=== PATIENT | male | born 1940 | race Caucasian/White ===

== ENCOUNTER → 2017-02-21 | Outpatient (CLI) | payer MEDICARE, OTHER, SELFPAY | PROVIDERS: Visit Provider Internal Medicine | DX: I25.10 Atherosclerotic heart disease of native coronary artery without angina pectoris (principal); R06.00 Dyspnea, unspecified; R60.9 Edema, unspecified; I11.9 Hypertensive heart disease without heart failure; I10 Essential (primary) hypertension; N18.4 Chronic kidney disease, stage 4 (severe) | CPT/HCPCS: 36415; 80048; 93306 ==

== ENCOUNTER → 2017-12-18 12:39 | Outpatient (CLI) | payer MEDICARE, OTHER, SELFPAY ==
[2017-12-18 14:24] LABS: Anion Gap 13.3 mEq/L (5-15); Blood Urea Nitrogen 35 mg/dL (7-18); Calcium 9.1 mg/dL (8.5-10.1); Carbon Dioxide 32 mmol/L (21.0-32.0); Chloride 104 mmol/L (98-107); Creatinine,Serum 2.57 mg/dL (0.70-1.30); Estimated Glomerular Filt Rate 24 ml/min (>60); GFR (African American) 29 ML/MIN (>60); Glucose 106 mg/dL (74-106); Potassium 4.3 mmoL/L (3.5-5.1); Sodium 145 mmol/L (136-145)
== END ==
PROVIDERS: PCP Family Medicine; Visit Provider Internal Medicine
DX: E11.9 Type 2 diabetes mellitus without complications (principal); I11.9 Hypertensive heart disease without heart failure; I25.10 Atherosclerotic heart disease of native coronary artery without angina pectoris; I70.1 Atherosclerosis of renal artery; N18.4 Chronic kidney disease, stage 4 (severe); R60.0 Localized edema
CPT/HCPCS: 36415; 80048

== ENCOUNTER 2018-01-28 08:24 | Inpatient (IN) ==
--- NOTE | 2018-01-28 08:46 | Emergency Department Note ---
ED Disposition Clinical Impression: COPD (chronic obstructive pulmonary disease) Qualifiers: COPD type: unspecified COPD Qualified Code(s): J44.9 - Chronic obstructive pulmonary disease, unspecified CHF (congestive heart failure) Qualifiers: Heart failure type: unspecified Heart failure chronicity: acute on chronic Qualified Code(s): I50.9 - Heart failure, unspecified Disposition: Admitted as Observation Condition on Discharge: Good Referrals: Vasile Tafoya MD [Primary Care Provider] - - Critical Care Critical Care Time: No Attestation: On , the high probability of a clinically significant, sudden or life threatening deterioration of the following system(s) required my full and direct attention, intervention and personal management. The time I documented below is in addition to time spent performing reported procedures but includes the f ollowing listed in this critical care notation. Medical Decision Making - Medical Records Medical records reviewed: Yes: I reviewed the patient's medical records. - [place] Inquiry Pt receiving controlled substance: No Vital Signs: 01/28/18 08:35 01/28/18 08:38 01/28/18 09:21 Temperature 97.8 F 97.8 F Temperature Source Oral Oral Pulse Rate 56 L Pulse Rate [Right Brachial] 81 81 Respiratory Rate 15 15 Blood Pressure [Right Arm] 157/79 H 157/79 H Blood Pressure Mean [Right Arm] 105 105 Blood Pressure Source [Right Arm] Automatic Cuff Automatic Cuff Blood Pressure Position [Right Arm] Sitting Sitting 02 Sat by Pulse Oximetry 86 L 86 L Oxygen Delivery Method Room Air Room Air Oxygen Flow Rate (LPM) 01/28/18 09:44 01/28/18 09:46 Temperature Temperature Source Pulse Rate Pulse Rate [Right Brachial] 56 L Respiratory Rate 22 Blood Pressure [Right Arm] 165/61 H Blood Pressure Mean [Right Arm] 95 Blood Pressure Source [Right Arm] Automatic Cuff Blood Pressure Position [Right Arm] Sitting 02 Sat by Pulse Oximetry 88 L 92 L Oxygen Delivery Method Room Air Nasal Cannula Oxygen Flow Rate (LPM) 3 - Lab Data Lab results reviewed: Yes: I reviewed the patient's lab results. Lab Results 01/28/18 08:36: WBC 8.6, RBC 4.44 L, Hgb 13.1 L, Hct 40.6 L, MCV 91.6, MCH 29.6, MCHC 32.3, RDW 14.7, Plt Count 164, MPV 9.1, Neut % (Auto) 71.6, Lymph % (Auto) 17.3, [place] % (Auto) 6.2, Eos % (Auto) 4.3, Baso % (Auto) 0.6, Neut # (Auto) 6.2, Lymph # (Auto) 1.5, [place] # (Auto) 0.5, Eos # (Auto) 0.4, Baso # (Auto) 0.1 01/28/18 08:36: Sodium 146 H, Potassium 3.6, Chloride 108 H, Carbon Dioxide 33 H , Anion Gap 8.6, BUN 30 H, Creatinine 2.51 H, Estimated Creat Clear 38, Estimated GFR 25 L, Est GFR ( Amer) 30 L, Glucose 94, Calcium 9.0, Total Bilirubin 0.6, AST 13 L, ALT 20, Alkaline Phosphatase 91, Troponin I < 0.02, Total Protein 7.1, Albumin 3.2 L, Globulin 3.9 H, Albumin/Globulin Ratio 0.8 L, Lipase 103 01/28/18 08:36: B-Natriuretic Peptide 1180 H 01/28/18 08:36: D-Dimer 1580 H* 01/28/18 08:53: Lactate 0.2 L 01/28/18 08:55: Specimen Source Left radial, O2 % 2l, ABG pH 7.41, ABG pCO2 48.8 H, ABG pO2 72.1 L, ABG HCO3 30.1 H, ABG Total CO2 31.6 H, ABG O2 Saturation 94, ABG Base Excess 5.4 H, Sander Test Acceptable Result diagrams: 01/28/18 08:36 01/28/18 08:36 Orders (Tests/Meds): ED MEDICATIONS Discontinued Medications Generic Name Dose Route Start Last Admin Trade Name Freq PRN Reason Stop Dose Admin Albuterol/Ipratropium 3 ml 01/28/18 08:42 01/28/18 09:20 Duoneb 3ml Neb IH 01/28/18 08:43 3 ml ONCE ONE Administration Aspirin 324 mg 01/28/18 10:35 Aspirin 81mg Chewable Tablet PO 01/28/18 10:36 ONCE ONE Furosemide 80 mg 01/28/18 10:35 Lasix 80mg Tablet PO 01/28/18 10:36 ONCE ONE Methylprednisolone Sodium Succinate 125 mg 01/28/18 08:41 01/28/18 08:59 Solu-Medrol 125mg/2ml Vial IV 01/28/18 08:42 125 mg ONCE ONE Administration ORDERS Category Date Time Status Blood Culture Stat Micro 01/28/18 08:53 Ordered V/Q Scan [NM pul vent and perfuse] Stat Nuc Med 01/28/18 09:23 Ordered - ECG Data Tracing #1 I reviewed this ECG and interpreted as documented below: Normal Sinus Rhythm: Yes (lvh and lateral t abn is new since 08/2016) Medical Decision Narrative: consult d/w Todd of Dr Laura, admit d/w Dr Tafoya for chf, copd, abnormal ekg and pending vq scan, pt improved w/ duoneb and 2liter NC oxygen, lasix and asa General Adult HPI - General Chief complaint: Shortness of Breath/Dyspnea Stated complaint: SOA Time Seen by Provider: 01/28/18 08:43 Mode of Arrival: Ambulatory Source of Information: Patient Limitations: No Limitations Description of Symptoms (Recalled from ER Triage Doc. by RN): progressively worsening shortness of air over last week; bilat lower extremity swelling - History of Present Illness HPI narrative: mild to mod shortness of breath getting worse over last week, +ALAMO, no pain, no fever, not on home oxygen, hx cardiac stent and cabg and dm - Related Data Home Medications Medication Instructions Recorded Confirmed alprazolam 1 mg disintegrating 1 mg PO TID tab 03/12/17 01/28/18 tablet aspirin 81 mg tablet,delayed 81 mg PO ONCE 03/12/17 01/28/18 release carvedilol 12.5 mg tablet 12.5 mg PO BID 03/12/17 01/28/18 clopidogrel 75 mg tablet 75 mg PO ONCE 03/12/17 01/28/18 febuxostat 40 mg tablet 40 mg PO ONCE 03/12/17 01/28/18 ferrous sulfate 325 mg (65 mg 325 mg PO DAILY 03/12/17 01/28/18 iron) tablet glimepiride 4 mg tablet 4 mg PO QAM 03/12/17 01/28/18 isosorbide mononitrate ER 30 mg 30 mg PO QAM 03/12/17 01/28/18 tablet,extended release 24 hr pantoprazole 20 mg tablet,delayed 40 mg PO QHS tab 03/12/17 01/28/18 release zolpidem 10 mg tablet 10 mg PO .QDAY tab 03/12/17 01/28/18 Amlodipine Besylate [Amlodipine 10 mg PO BID 01/28/18 01/28/18 10mg Tab] Atorvastatin Calcium [Lipitor 40mg 40 mg PO .QDAY 01/28/18 01/28/18 Tablet] Furosemide [Furosemide 40MG tAB] 40 mg PO BID 01/28/18 01/28/18 Allergies Allergy/AdvReac Type Severity Reaction Status Date / Time cefuroxime [From CEFTIN] Allergy Unknown Verified 01/28/18 08:55 vancomycin [VANCOMYCIN] Allergy Unknown Verified 01/28/18 08:55 [facility] [place] History I have reviewed the patient's past medical history: Yes Medical History: Reports:: Coronary Artery Disease, Diabetes Mellitus Type 2, Hyperlipidemia, Peripheral Artery Disease Laterality Cases: Bilateral: Tonsillectomy Other Surgeries: Yes: Other - Social History Educational Level: Completed High School Smoking Status: Unknown if ever smoked Alcohol Intake: never - Psychiatric History Expresses thoughts of harming self/others: None Suicide Plan Description: No Plan Family Hx:: Non-contributory ROS Obtained: Yes Systems reviewed as appropriate & no additional complaints - Constitutional Constitutional: Denies fever(s) - Eyes Eyes: Denies eye discharge - ENT Ears, Nose, Mouth, and Throat: Denies pain with swallowing - Cardiovascular Cardiovascular: Denies chest pain - Respiratory Respiratory: Yes dyspnea, Yes dyspnea on exertion - Gastrointestinal Gastrointestingal: Denies: abdominal pain - Musculoskeletal Musculoskeletal: Denies muscle aches - Integumentary/Breasts Skin/Breast: Denies rash - Neurologic Neurologic: Denies dizziness Physical Exam - General General appearance: alert - Head Head exam: atraumatic - Eye Eye exam: Present: PERRL, EOMI - ENT ENT exam: Present: normal oropharynx - Neck Neck exam: Present: full ROM - Chest Chest inspection: Present: normal inspection - Respiratory Respiratory exam: Present: wheezes. Absent: stridor - Cardiovascular Cardiovascular exam: Present: regular rate - Abdominal Exam Abdominal exam: Present: soft. Absent: tenderness - Extremities Exam Extremities exam: Present: pedal edema - Back Exam Back exam: Absent: CVA tenderness (R), CVA tenderness (L) - Neurological Exam Neurological exam: Present: alert, oriented X3 - Psychiatric Psychiatric exam: Present: normal affect, normal mood - Skin Skin exam: Present: warm, dry
[2018-01-28 08:59] LABS: Basophils # 0.1 K/mm3 (0-0.2); Basophils % 0.6 % (0.1-2.0); Eosinophils # 0.4 K/mm3 (0.0-0.4); Eosinophils % 4.3 % (0.1-12.0); Hematocrit 40.6 % (42.0-52.0); Hemoglobin 13.1 g/dL (14.1-18.0); Lymphocytes # 1.5 K/mm3 (0.7-4.5); Lymphocytes % 17.3 % (10-50); Mean Corpuscular HGB Conc 32.3 g/dL (31.8-35.4); Mean Corpuscular Hemoglobin 29.6 pg (27.0-31.2); Mean Corpuscular Volume 91.6 fl (80-94); Mean Platelet Volume 9.1 fl (7.4-10.4); Monocytes # 0.5 K/mm3 (0.1-1.0); Monocytes % 6.2 % (1.7-9.3); Neutrophils # 6.2 K/mm3 (1.8-7.8); Neutrophils % 71.6 % (37.0-80.0); Platelet Count 164 K/mm3 (142-424); Red Blood Count 4.44 M/mm3 (4.60-6.20); Red Cell Distribution Width 14.7 % (11.5-17.5); White Blood Count 8.6 K/mm3 (4.8-10.8)
[2018-01-28 09:05] LABS: Alanine Aminotransferase 20 U/L (12-78); Albumin Level 3.2 gm/dL (3.4-5.0); Albumin/Globulin Ratio 0.8 (1.1-1.8); Alkaline Phosphatase 91 U/L (46-116); Anion Gap 8.6 mEq/L (5-15); Aspartate Amino Transferase 13 U/L (15-37); Bilirubin,Total 0.6 mg/dL (0.2-1.0); Blood Urea Nitrogen 30 mg/dL (7-18); Carbon Dioxide 33 mmol/L (21.0-32.0); Chloride 108 mmol/L (98-107); Globulin 3.9 gm/dl (1.3-3.2); Glucose 94 mg/dL (74-106); Lipase 103 u/L (73-393); Potassium 3.6 mmoL/L (3.5-5.1); Sodium 146 mmol/L (136-145); Total Protein,Serum 7.1 gm/dL (6.4-8.2)
[2018-01-28 09:08] LABS: ABG Base Excess 5.4 mmol/L (-2.4-2.3); ABG HCO3 30.1 mmhg (22.0-26.0); ABG Oxygen Saturation 94 % (90-100); ABG PCO2 48.8 mmhg (35.0-45.0); ABG PH 7.41 mmol/L (7.35-7.45); ABG PO2 72.1 mmhg (80-100); ABG TCO2 31.6 mmhg (23-27)
[2018-01-28 09:09] LABS: Allen's Test Acceptable; Oxygen 2L %
--- NOTE | 2018-01-28 11:30 | Consult Report ---
History of Present Illness Consult date: 01/28/18 Requesting physician: Vasile Tafoya Consult reason: shortness of breath Chief complaint: SOA Additional Medical History:: 1. Coronary artery disease A. History of coronary bypass grafting 1998 B. Drug-eluting stent to circumflex 03/05/2015 2. History of heart failure 3. Renal artery stenosis with history of left renal artery stent placement 03/05/2015 4. History of peripheral arterial disease with right common iliac stent placement 03/05/2015 5. Chronic kidney disease stage III with history of creatinine 2.2 GFR in the 30-40 range 6. Hypertension 7. Diabetes mellitus type 2 8. Hyperlipidemia History of present illness: 77-year-old white male with history as noted above presented to the emergency department for increasing shortness of breath. Patient lives with his son who has noted that the patient has had increasing difficulty with minimal ambulation over the last 2 weeks. Patient denies any increase in edema, PND or orthopnea. He does sleep with his CPAP on regularly. During ER workup, patient was noted to have elevated d-dimer with a VQ that is pending at this time. Unable to do a CT due to chronic kidney disease. EKG shows sinus rhythm with nonspecific ST-T abnormalities that are similar to previous tracings in 2016 and 2017. Patient denies any chest pain, pressure or tightness. Cardiology consulted for further evaluation. Initial troponin is normal. [facility] History Medical History: Reports:: Coronary Artery Disease, Diabetes Mellitus Type 2, Hyperlipidemia, Peripheral Artery Disease Laterality Cases: Bilateral: Tonsillectomy Other Surgeries: Yes: Other - *Social History Educational Level: Completed High School Smoking Status: Unknown if ever smoked Alcohol Intake: never - Psychiatric History Expresses thoughts of harming self/others: None Suicide Plan Description: No Plan *Family Hx:: Non-contributory Meds Home Medications Medication Instructions Recorded Confirmed Type alprazolam 1 mg disintegrating 1 mg PO TIDP PRN tab 03/12/17 01/28/18 History tablet aspirin 81 mg tablet,delayed 81 mg PO DAILY 03/12/17 01/28/18 History release carvedilol 12.5 mg tablet 12.5 mg PO BID 03/12/17 01/28/18 History clopidogrel 75 mg tablet 75 mg PO DAILY 03/12/17 01/28/18 History febuxostat 40 mg tablet 40 mg PO DAILY 03/12/17 01/28/18 History ferrous sulfate 325 mg (65 mg 325 mg PO TID 03/12/17 01/28/18 History iron) tablet glimepiride 4 mg tablet 4 mg PO DAILY 03/12/17 01/28/18 History isosorbide mononitrate ER 30 mg 30 mg PO DAILY 03/12/17 01/28/18 History tablet,extended release 24 hr zolpidem 10 mg tablet 10 mg PO HSP PRN tab 03/12/17 01/28/18 History Amlodipine Besylate [Amlodipine 10 mg PO BID 01/28/18 01/28/18 History 10mg Tab] Atorvastatin Calcium [Atorvastatin 40 mg PO DAILY 01/28/18 01/28/18 History 40mg Tab] Furosemide [Furosemide 40MG tAB] 40 mg PO BID 01/28/18 01/28/18 History Pantoprazole Sodium [Protonix 40mg 40 mg PO DAILY 01/28/18 01/28/18 History tablet] Allergies Allergy/AdvReac Type Severity Reaction Status Date / Time cefuroxime [From CEFTIN] Allergy Unknown Verified 01/28/18 08:55 vancomycin [VANCOMYCIN] Allergy Unknown Verified 01/28/18 08:55 Review of Systems - *Cardiovascular Reports shortness of breath, Reports shortness of breath with activity, Denies chest pain - *Respiratory Reports shortness of breath, Reports shortness of breath with activity - *Gastrointestinal Denies abdominal pain - *Genitourinary Denies blood in urine - *Musculoskeletal Denies joint pain, Denies back pain - *Neurologic Denies dizziness Exam Vital signs and Labs for Last 24 Hours: Temp Pulse Resp BP Pulse Ox 98.0 F 58 L 22 161/65 H 96 01/28/18 11:05 01/28/18 11:05 01/28/18 11:05 01/28/18 11:05 01/28/18 10:50 Laboratory Results - last 24 hr 01/28/18 08:36: WBC 8.6, RBC 4.44 L, Hgb 13.1 L, Hct 40.6 L, MCV 91.6, MCH 29.6, MCHC 32.3, RDW 14.7, Plt Count 164, MPV 9.1, Neut % (Auto) 71.6, Lymph % (Auto) 17.3, [place] % (Auto) 6.2, Eos % (Auto) 4.3, Baso % (Auto) 0.6, Neut # (Auto) 6.2, Lymph # (Auto) 1.5, [place] # (Auto) 0.5, Eos # (Auto) 0.4, Baso # (Auto) 0.1 01/28/18 08:36: Sodium 146 H, Potassium 3.6, Chloride 108 H, Carbon Dioxide 33 H , Anion Gap 8.6, BUN 30 H, Creatinine 2.51 H, Estimated Creat Clear 38, Estimated GFR 25 L, Est GFR ( Amer) 30 L, Glucose 94, Calcium 9.0, Total Bilirubin 0.6, AST 13 L, ALT 20, Alkaline Phosphatase 91, Troponin I < 0.02, Total Protein 7.1, Albumin 3.2 L, Globulin 3.9 H, Albumin/Globulin Ratio 0.8 L, Lipase 103 01/28/18 08:36: B-Natriuretic Peptide 1180 H 01/28/18 08:36: D-Dimer 1580 H* 01/28/18 08:53: Lactate 0.2 L 01/28/18 08:55: Specimen Source Left radial, O2 % 2l, ABG pH 7.41, ABG pCO2 48.8 H, ABG pO2 72.1 L, ABG HCO3 30.1 H, ABG Total CO2 31.6 H, ABG O2 Saturation 94, ABG Base Excess 5.4 H, Sander Test Acceptable I & O for Last 24 hours: Intake & Output 01/25/18 01/26/18 01/27/18 01/28/18 11:59 11:59 11:59 11:59 Intake Total Balance Weight 245 lb - *Routine Neck Exam Present: supple, JVD. Absent: carotid bruit Comments: Unable to adequately assess for JVD due to body habitus - *Routine Respiratory Exam Present: decreased breath sounds, crackles. Absent: accessory muscle use, rales, rhonchi, wheezes - *Routine Cardiovascular Exam Present: RRR. Absent: murmur, gallop, rubs - *Routine Abdominal Exam Present: soft. Absent: tenderness, distended, guarding - *Routine Extremities Exam Present: edema. Absent: calf tenderness - *Routine Neurological Exam Present: alert, oriented X3, moving all extremities Assessment and Plan (1) Dyspnea Current visit: No Status: Acute Category: Medical Code(s): R06.00 - Dyspnea, unspecified (2) D-dimer, elevated Current visit: Yes Status: Acute Category: Medical Code(s): R79.89 - Other specified abnormal findings of blood chemistry (3) CHF (congestive heart failure) Current visit: Yes Status: Acute Qualifiers: Heart failure type: unspecified Heart failure chronicity: acute on chronic Qualified Code(s): I50.9 - Heart failure, unspecified Category: Medical Code(s): I50.9 - Heart failure, unspecified (4) Edema Current visit: No Status: Acute Qualifiers: Edema type: localized Qualified Code(s): R60.0 - Localized edema Category: Medical Code(s): R60.9 - Edema, unspecified (5) Hypertensive disorder Current visit: No Status: Acute Category: Medical Code(s): I10 - Essential (primary) hypertension (6) Chronic kidney disease, stage 4 (severe) Current visit: No Status: Chronic Category: Medical Code(s): N18.4 - Chronic kidney disease, stage 4 (severe) (7) Coronary arteriosclerosis Current visit: No Status: Chronic Category: Medical Code(s): I25.10 - Atherosclerotic heart disease of [place] coronary artery without angina pectoris (8) Diabetes mellitus Current visit: No Status: Chronic Qualifiers: Diabetes mellitus type: type 2 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 Obtain echocardiogram to reevaluate left ventricular ejection fraction 2. IV Lasix 80 mg has been given, will assess response and follow renal functions closely 3. We will await results of VQ scan and consider Lovenox therapy if needed 4. Resume home meds. If edema is problematic then consider switching to hydralazine and isordil.
--- NOTE | 2018-01-28 11:40 | Pharmacy Consult Notes ---
[facility] Pharmacy VTE Monitoring - Patient Demographics Admission date: 01/28/18 Report Date: 01/28/18 Time: 11:39 Allergies/Adverse Reactions: Patient Allergies cefuroxime [From CEFTIN] Allergy (Unknown, Verified 01/28/18 08:55) vancomycin [VANCOMYCIN] Allergy (Unknown, Verified 01/28/18 08:55) Height: 1.91 m Weight: 116.205 kg Patient Problems: Current Active Problems COPD (chronic obstructive pulmonary disease) (Acute) CHF (congestive heart failure) (Acute) D-dimer, elevated (Acute) - VTE Risk Labs: VTE Related Lab Results Hgb 13.1 g/dL (14.1-18.0) L 01/28/18 08:36 Hct 40.6 % (42.0-52.0) L 01/28/18 08:36 Plt Count 164 K/mm3 (142-424) 01/28/18 08:36 BUN 30 mg/dL (7-18) H 01/28/18 08:36 Creatinine 2.51 mg/dL (0.70-1.30) H 01/28/18 08:36 Estimated Creat Clear 38 mL/min (50-200) 01/28/18 08:36 - Prophylaxis VTE Prophylaxis Ordered?: Yes Types of VTE Prophylaxis: TEDS Knee High Location of Applied Device: Bilateral Lower Extremeties - VTE Diagnosis Confirmed Treatment or plan recommended: Continue Current Treatment
--- NOTE | 2018-01-28 16:15 | History & Physical Report ---
*Admission Date: 01/28/18 *Chief complaint: shortness of breath *History of present illness: 77 year old gentlemen admitted through the ER today for increasing SOB. 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 He typically has some shortness of breath with activity but they noted it to be worse when he was unable to perform usual activities of showering and climbing stairs. Brought in for further evaluation this morning Patient is somewhat a poor historian and son answers some of questions. PMH significant for tobacco use, smoked for about 30 years, approx 1-2 ppd, quit about 30 years ago. [facility] History Medical History: Reports:: Arrhythmia, Atherosclerotic Heart Disease, Congestive Heart Failure, Coronary Artery Disease, Diabetes Mellitus Type 2, Hyperlipidemia, Peripheral Artery Disease, Peripheral Vascular Disease, Renal Disease Denies:: Cancer, MRSA Laterality Cases: Bilateral: Tonsillectomy Other Surgeries: Yes: Cardiac Catheterization, Cardiac Surgery, Coronary Stent, Other Amputation: No Fractures: No - *Social History Educational Level: Completed High School Smoking Status: Unknown if ever smoked #Yrs smoked (if former smoker): 20 Smoking End Date: 02/26/1989 Alcohol Intake: never Occupational Status: retired Housing: house Household Members: children - Psychiatric History Expresses thoughts of harming self/others: None Suicide Plan Description: No Plan *Family Hx:: Non-contributory Review of Systems - Constitutional Reports chills, Reports fatigue, Denies fever(s), Denies weight gain - ENT Reports nasal congestion - *Cardiovascular Reports leg swelling, Denies chest pain, Denies chest pain at rest, Denies chest pain with activity, Denies rapid, pounding, or irregular heartbeat, Denies taco rtness of breath causing sudden awakening, Denies radiating jaw, neck or arm pain - *Respiratory Reports shortness of breath, Reports shortness of breath with activity, Denies chest congestion, Denies cough, Denies wheezing - *Gastrointestinal Denies abdominal pain, Denies nausea, Denies vomiting - *Genitourinary Reports frequent nighttime urination, Reports urinary frequency, Denies difficulty urinating - *Neurologic Denies dizziness, Denies headache(s) Meds Home Medications Medication Instructions Recorded Confirmed Type alprazolam 1 mg disintegrating 1 mg PO TIDP PRN tab 03/12/17 01/28/18 History tablet aspirin 81 mg tablet,delayed 81 mg PO DAILY 03/12/17 01/28/18 History release carvedilol 12.5 mg tablet 12.5 mg PO BID 03/12/17 01/28/18 History clopidogrel 75 mg tablet 75 mg PO DAILY 03/12/17 01/28/18 History febuxostat 40 mg tablet 40 mg PO DAILY 03/12/17 01/28/18 History ferrous sulfate 325 mg (65 mg 325 mg PO TID 03/12/17 01/28/18 History iron) tablet glimepiride 4 mg tablet 4 mg PO DAILY 03/12/17 01/28/18 History isosorbide mononitrate ER 30 mg 30 mg PO DAILY 03/12/17 01/28/18 History tablet,extended release 24 hr zolpidem 10 mg tablet 10 mg PO HSP PRN tab 03/12/17 01/28/18 History Amlodipine Besylate [Amlodipine 10 mg PO BID 01/28/18 01/28/18 History 10mg Tab] Atorvastatin Calcium [Atorvastatin 40 mg PO DAILY 01/28/18 01/28/18 History 40mg Tab] Furosemide [Furosemide 40MG tAB] 40 mg PO BID 01/28/18 01/28/18 History Pantoprazole Sodium [Protonix 40mg 40 mg PO DAILY 01/28/18 01/28/18 History tablet] Allergies Allergy/AdvReac Type Severity Reaction Status Date / Time cefuroxime [From CEFTIN] Allergy Unknown Verified 01/28/18 08:55 vancomycin [VANCOMYCIN] Allergy Unknown Verified 01/28/18 08:55 Exam Vital signs and Labs for Last 24 Hours: Temp Pulse Resp BP Pulse Ox 98.0 F 58 L 22 161/65 H 96 01/28/18 11:05 01/28/18 11:05 01/28/18 11:05 01/28/18 11:05 01/28/18 13:38 Laboratory Results - last 24 hr 01/28/18 08:36: WBC 8.6, RBC 4.44 L, Hgb 13.1 L, Hct 40.6 L, MCV 91.6, MCH 29.6, MCHC 32.3, RDW 14.7, Plt Count 164, MPV 9.1, Neut % (Auto) 71.6, Lymph % (Auto) 17.3, [place] % (Auto) 6.2, Eos % (Auto) 4.3, Baso % (Auto) 0.6, Neut # (Auto) 6.2, Lymph # (Auto) 1.5, [place] # (Auto) 0.5, Eos # (Auto) 0.4, Baso # (Auto) 0.1 01/28/18 08:36: Sodium 146 H, Potassium 3.6, Chloride 108 H, Carbon Dioxide 33 H , Anion Gap 8.6, BUN 30 H, Creatinine 2.51 H, Estimated Creat Clear 38, Estimated GFR 25 L, Est GFR ( Amer) 30 L, Glucose 94, Calcium 9.0, Total Bilirubin 0.6, AST 13 L, ALT 20, Alkaline Phosphatase 91, Troponin I < 0.02, Total Protein 7.1, Albumin 3.2 L, Globulin 3.9 H, Albumin/Globulin Ratio 0.8 L, Lipase 103 01/28/18 08:36: B-Natriuretic Peptide 1180 H 01/28/18 08:36: D-Dimer 1580 H* 01/28/18 08:53: Lactate 0.2 L 01/28/18 08:55: Specimen Source Left radial, O2 % 2l, ABG pH 7.41, ABG pCO2 48.8 H, ABG pO2 72.1 L, ABG HCO3 30.1 H, ABG Total CO2 31.6 H, ABG O2 Saturation 94, ABG Base Excess 5.4 H, Sander Test Acceptable 01/28/18 14:20: Troponin I < 0.02 I & O for Last 24 hours: Intake & Output 01/25/18 01/26/18 01/27/18 01/28/18 23:59 23:59 23:59 23:59 Intake Total 260 / 260 Output Total 200 / 200 Balance 60 / 60 Weight 256 lb 3.011 oz - Constitutional no acute distress, cooperative Comments: walking freely about the room with oxygen extension, moderate SOB - *Routine Neck Exam Present: supple - *Routine Respiratory Exam Present: accessory muscle use, decreased breath sounds, CTA bilaterally - *Routine Cardiovascular Exam Present: irregularly irregular Comments: 4+ pitting edema neal LEs, no erythema or pain - *Routine Abdominal Exam Present: soft, normoactive bowel sounds. Absent: tenderness - *Routine Skin Exam Present: intact, dry - *Routine Neurological Exam Present: alert, oriented X3 - Routine Psychiatric Exam Present: normal affect Assessment and Plan (1) Dyspnea Current visit: No Status: Acute Category: Medical Code(s): R06.00 - Dyspnea, unspecified (2) D-dimer, elevated Current visit: Yes Status: Acute Category: Medical Code(s): R79.89 - Other specified abnormal findings of blood chemistry (3) CHF (congestive heart failure) Current visit: Yes Status: Acute Qualifiers: Heart failure type: unspecified Heart failure chronicity: acute on chronic Qualified Code(s): I50.9 - Heart failure, unspecified Category: Medical Code(s): I50.9 - Heart failure, unspecified (4) Edema Current visit: No Status: Acute Qualifiers: Edema type: localized Qualified Code(s): R60.0 - Localized edema Category: Medical Code(s): R60.9 - Edema, unspecified (5) Hypertensive disorder Current visit: No Status: Acute Category: Medical Code(s): I10 - Essential (primary) hypertension (6) Chronic kidney disease, stage 4 (severe) Current visit: No Status: Chronic Category: Medical Code(s): N18.4 - Chronic kidney disease, stage 4 (severe) (7) Coronary arteriosclerosis Current visit: No Status: Chronic Category: Medical Code(s): I25.10 - Atherosclerotic heart disease of [place] coronary artery without angina pectoris (8) Diabetes mellitus Current visit: No Status: Chronic Qualifiers: Diabetes mellitus type: type 2 Diabetes mellitus fpc insulin use: without fpc use Diabetes mellitus complication status: without complication Qualified Code(s): E11.9 - Type 2 diabetes mellitus without complications Category: Medical Code(s): E11.9 - Type 2 diabetes mellitus without complications (9) Hypertensive heart disease Current visit: No Status: Chronic Qualifiers: Heart failure presence: without heart failure Qualified Code(s): I11.9 - Hypertensive heart disease without heart failure Category: Medical Code(s): I11.9 - Hypertensive heart disease without heart failure - Assessment and plan all Dx Assessment and Plan for all problems:: Admit for treatment and observation, consult to cardiology.
--- NOTE | 2018-01-28 21:45 | Cardiology Report ---
PROCEDURE: 2-D M-mode and color Doppler study INDICATIONS FOR THE TEST: Chest pain COPD Heart Murmur Tobacco Smokingex Palpitations Fatigue Syncope Edema+ Hypertension+Diabetes Mellitus+ Rheumatic Fever SOB+ALAMO+Obesity Hyperlipidemia+ Family History HD Additional History CABG, Stents, ILYA, PAD, CPAP, CHF PATIENT INFORMATION HEIGHT: 75 WEIGHT: 256 GENDER: Male B/P: 161/65 2-D/M-MODE INTERPRETATION: 2-D MEASUREMENTS OBSERVED VALUES IN CMS Right Ventricular Dimension (RVDd) 3.1 Interventricular Septum (Thickness)(IVsd) 1.4 Left Ventricular Internal Dimensions(LVIDd) 4.5 Left Ventricular Posterior Wall (Thickness)(LVPWd) 1.4 Aortic Root 3.0 Aortic Cusp Separation 2.0 Left Atrial Dimensions (LAD) 4.9 2D 1. Technically difficult study because of the patient's factor and poor acoustic windows 2. The left atrium is mildly enlarged, left ventricle is normal size, there is mild concentric left ventricular hypertrophy, visually estimated ejection fraction 55% with no regional wall motion abnormality. 3. The right atrium and right ventricle are mildly enlarged with normal contractility. 4. The aortic valve is thickened and calcified, with mild reduction in the leaflet mobility. 5. The mitral and tricuspid valve leaflets are grossly normal. 6. The pulmonic valve is poorly visualized. 7. No significant pericardial effusion noted. DOPPLER INTERROGATION: 1. The aortic outflow velocities mildly increased, does not represent significant aortic stenosis or aortic insufficiency. 2. The mitral inflow velocity within normal range, there is no mitral stenosis, there is mild mitral regurgitation, grade 1 diastolic dysfunction seen with tissue Doppler evidence of raised left atrial pressure. 3. There is mild tricuspid regurgitation noted, tricuspid regurgitant jet velocity is inadequate for calculation of the right ventricular systolic pressure. CONCLUSION: 1. Technically difficult study because of the patient's factor and poor acoustic windows 2. Mildly enlarged left atrium, normal left ventricular size, mild concentric left ventricular hypertrophy, visually estimated ejection fraction of 55% with no regional wall motion abnormality, grade 1 diastolic dysfunction seen with tissue Doppler evidence of raised left atrial pressure. 3. Thickened and calcified aortic valve without significant aortic stenosis or aortic insufficiency. 4. Mild tricuspid regurgitation 5. No significant pericardial effusion noted.
[2018-01-29 06:51] LABS: Anion Gap 14.8 mEq/L (5-15); Calcium 8.8 mg/dL (8.5-10.1); Potassium 3.8 mmoL/L (3.5-5.1)
--- NOTE | 2018-01-29 07:28 | Progress Note ---
Internal Medicine - PN: Subj *Date: 01/29/18 *Time: 07:09 Interval history: 77 year old male with feet dangled, son at bedside. Reportedly had a good night but has been up and down to bathroom multiple times, not short of breath with rest but is noted with activity, also shortness of breath this morning with lying flat, nurse elevated HOB and increased oxygen from 2L to 3L. Patient tells me he does not typically drink many fluids. Exam Vital signs and Labs for Last 24 Hours: Temp Pulse Resp BP Pulse Ox 98.4 F 74 20 107/72 L 93 L 01/29/18 04:34 01/29/18 04:34 01/29/18 04:34 01/29/18 04:34 01/29/18 04:34 Laboratory Results - last 24 hr 01/28/18 08:36: WBC 8.6, RBC 4.44 L, Hgb 13.1 L, Hct 40.6 L, MCV 91.6, MCH 29.6, MCHC 32.3, RDW 14.7, Plt Count 164, MPV 9.1, Neut % (Auto) 71.6, Lymph % (Auto) 17.3, [place] % (Auto) 6.2, Eos % (Auto) 4.3, Baso % (Auto) 0.6, Neut # (Auto) 6.2, Lymph # (Auto) 1.5, [place] # (Auto) 0.5, Eos # (Auto) 0.4, Baso # (Auto) 0.1 01/28/18 08:36: Sodium 146 H, Potassium 3.6, Chloride 108 H, Carbon Dioxide 33 H , Anion Gap 8.6, BUN 30 H, Creatinine 2.51 H, Estimated Creat Clear 38, Estimated GFR 25 L, Est GFR ( Amer) 30 L, Glucose 94, Calcium 9.0, Total Bilirubin 0.6, AST 13 L, ALT 20, Alkaline Phosphatase 91, Troponin I < 0.02, Total Protein 7.1, Albumin 3.2 L, Globulin 3.9 H, Albumin/Globulin Ratio 0.8 L, Lipase 103 01/28/18 08:36: B-Natriuretic Peptide 1180 H 01/28/18 08:36: D-Dimer 1580 H* 01/28/18 08:53: Lactate 0.2 L 01/28/18 08:55: Specimen Source Left radial, O2 % 2l, ABG pH 7.41, ABG pCO2 48.8 H, ABG pO2 72.1 L, ABG HCO3 30.1 H, ABG Total CO2 31.6 H, ABG O2 Saturation 94, ABG Base Excess 5.4 H, Sander Test Acceptable 01/28/18 14:20: Troponin I < 0.02 01/28/18 16:14: POC Glucose 212 H 01/28/18 17:40: Troponin I < 0.02 01/28/18 21:11: POC Glucose 220 H 01/29/18 05:31: POC Glucose 196 H 01/29/18 06:25: Sodium 143, Potassium 3.8, Chloride 104, Carbon Dioxide 28, Anion Gap 14.8, BUN 38 H D, Creatinine 2.57 H, Estimated Creat Clear 39, Estimated GFR 24 L, Est GFR ( Amer) 29 L, Glucose 194 H D, Calcium 8.8 I & O for Last 24 hours: Intake & Output 01/26/18 01/27/18 01/28/18 01/29/18 23:59 23:59 23:59 23:59 Intake Total 620 / 620 Output Total 200 / 200 Balance 420 / 420 Weight 256 lb 3.011 oz 258 lb 2 oz - Constitutional no acute distress - *Routine HEENT Exam Head: Present: normocephalic Eye: Present: PERRL, normal accommodation - *Routine Neck Exam Present: supple - *Routine Respiratory Exam Present: accessory muscle use, decreased breath sounds, CTA bilaterally - *Routine Cardiovascular Exam Present: RRR, bradycardia Comments: 4+ pitting edema to neal LEs - *Routine Abdominal Exam Present: soft, normoactive bowel sounds Assessment and Plan (1) Dyspnea Current visit: No Status: Acute Category: Medical Code(s): R06.00 - Dyspnea, unspecified (2) D-dimer, elevated Current visit: Yes Status: Acute Category: Medical Code(s): R79.89 - Other specified abnormal findings of blood chemistry (3) CHF (congestive heart failure) Current visit: Yes Status: Acute Qualifiers: Heart failure type: unspecified Heart failure chronicity: acute on chronic Qualified Code(s): I50.9 - Heart failure, unspecified Category: Medical Code(s): I50.9 - Heart failure, unspecified (4) Edema Current visit: No Status: Acute Qualifiers: Edema type: localized Qualified Code(s): R60.0 - Localized edema Category: Medical Code(s): R60.9 - Edema, unspecified (5) Hypertensive disorder Current visit: No Status: Acute Category: Medical Code(s): I10 - Essential (primary) hypertension (6) Chronic kidney disease, stage 4 (severe) Current visit: No Status: Chronic Category: Medical Code(s): N18.4 - Chronic kidney disease, stage 4 (severe) (7) Coronary arteriosclerosis Current visit: No Status: Chronic Category: Medical Code(s): I25.10 - Atherosclerotic heart disease of [place] coronary artery without angina pectoris (8) Diabetes mellitus Current visit: No Status: Chronic Qualifiers: Diabetes mellitus type: type 2 Diabetes mellitus residential insulin use: without buttermaker helper use Diabetes mellitus complication status: without complication Qualified Code(s): E11.9 - Type 2 diabetes mellitus without complications Category: Medical Code(s): E11.9 - Type 2 diabetes mellitus without complications (9) Hypertensive heart disease Current visit: No Status: Chronic Qualifiers: Heart failure presence: without heart failure Qualified Code(s): I11.9 - Hypertensive heart disease without heart failure Category: Medical Code(s): I11.9 - Hypertensive heart disease without heart failure (10) Diastolic CHF, acute on chronic Current visit: Yes Status: Acute Category: Medical Code(s): I50.33 - Acute on chronic diastolic (congestive) heart failure - Assessment and plan all Dx Assessment and Plan for all problems:: Will order Bumex 1 mg now and at 4pm, fluid restriction to 1200mL, advised patient to please use urinal to accurately monitor output, daily weight, and morning BMP.
--- NOTE | 2018-01-29 11:48 | Progress Note ---
Subjective Date: 01/29/18 Time: 11:41 Principal diagnosis: SOA Interval history: 77-year-old white male in bed in no acute distress. He seems to be breathing a little easier today and feels a little bit better. No significant diuresis overnight and Lasix was subsequently changed to Bumex today to try and get a better response. Second chest x-ray yesterday showed possible infiltrate in the left lung. VQ scan was low probability for pulmonary embolus. Exam Vital signs and Labs for Last 24 Hours: Temp Pulse Resp BP Pulse Ox 97.9 F 107 H 18 157/62 H 94 L 01/29/18 08:00 01/29/18 08:00 01/29/18 08:00 01/29/18 08:00 01/29/18 08:00 Laboratory Results - last 24 hr 01/28/18 14:20: Troponin I < 0.02 01/28/18 16:14: POC Glucose 212 H 01/28/18 17:40: Troponin I < 0.02 01/28/18 21:11: POC Glucose 220 H 01/29/18 05:31: POC Glucose 196 H 01/29/18 06:25: Sodium 143, Potassium 3.8, Chloride 104, Carbon Dioxide 28, Anion Gap 14.8, BUN 38 H D, Creatinine 2.57 H, Estimated Creat Clear 39, Estimated GFR 24 L, Est GFR ( Amer) 29 L, Glucose 194 H D, Calcium 8.8 01/29/18 11:11: POC Glucose 227 H I & O for Last 24 hours: Intake & Output 01/26/18 01/27/18 01/28/18 01/29/18 11:59 11:59 11:59 11:59 Intake Total 1080 / 1080 Output Total 200 / 200 525 / 525 Balance -180 / -180 555 / 555 Weight 256 lb 3 oz 258 lb 2 oz - *Routine Neck Exam Present: supple. Absent: JVD, carotid bruit - *Routine Respiratory Exam Present: decreased breath sounds, crackles. Absent: accessory muscle use, rales, rhonchi, wheezes - *Routine Cardiovascular Exam Present: RRR, murmur. Absent: gallop, rubs - *Routine Extremities Exam Present: edema. Absent: calf tenderness - *Routine Neurological Exam Present: alert, oriented X3, moving all extremities Progress Note: A&P (1) Dyspnea Status: Acute Current Visit: No (2) D-dimer, elevated Status: Acute Current Visit: Yes (3) CHF (congestive heart failure) Status: Acute Current Visit: Yes (4) Edema Status: Acute Current Visit: No (5) Hypertensive disorder Status: Acute Current Visit: No (6) Chronic kidney disease, stage 4 (severe) Status: Chronic Current Visit: No (7) Coronary arteriosclerosis Status: Chronic Current Visit: No (8) Diabetes mellitus Status: Chronic Current Visit: No (9) Hypertensive heart disease Status: Chronic Current Visit: No (10) Diastolic CHF, acute on chronic Status: Acute Current Visit: Yes Assessment and Plan for All Diagnoses:: Continue diuresis with bumex as long as Cr is <3. Continue norvasc and coreg for BP control. Antibiotic per Dr. Tafoya. Continue ASA and plavix for history of CAD/coronary stenting.
[2018-01-30 07:04] LABS: Anion Gap 11.7 mEq/L (5-15); Calcium 8.7 mg/dL (8.5-10.1); Potassium 3.7 mmoL/L (3.5-5.1)
--- NOTE | 2018-01-30 07:15 | Progress Note ---
Internal Medicine - PN: Subj *Date: 01/30/18 *Time: 07:12 Interval history: Patient has no physical complaints today. He is little frustrated by the fluid restrictions. He continues to be dyspneic when ambulating. Room air sats have been documented at 90% in the last 24 hours. He denies productive cough. Yesterday patient was started on Levaquin for potential left lower lobe pneumonia. During the interview the patient's son titled on his father reporting that he leads a sedentary lifestyle. Patient will sometimes wake up in the morning take his medicines and get back in bed. He moves very little about the home. Even in public places the patient usually chooses to sit and wait on his son to finish activities. Exam Vital signs and Labs for Last 24 Hours: Temp Pulse Resp BP Pulse Ox 97.6 F 50 L 17 109/73 L 93 L 01/30/18 04:00 01/30/18 04:00 01/30/18 04:00 01/30/18 04:00 01/30/18 04:00 Laboratory Results - last 24 hr 01/29/18 11:11: POC Glucose 227 H 01/29/18 16:20: POC Glucose 148 H 01/29/18 20:29: POC Glucose 188 H 01/30/18 05:39: POC Glucose 128 H 01/30/18 06:47: Sodium 143, Potassium 3.7, Chloride 106, Carbon Dioxide 29, Anion Gap 11.7, BUN 52 H D, Creatinine 2.83 H, Estimated Creat Clear 35, Estimated GFR 22 L, Est GFR ( Amer) 26 L, Glucose 136 H, Calcium 8.7, Magnesium 2.2 I & O for Last 24 hours: Intake & Output 01/27/18 01/28/18 01/29/18 01/30/18 11:59 11:59 11:59 11:59 Intake Total 1080 / 1080 480 / 480 Output Total 200 / 200 525 / 525 525 / 525 Balance -180 / -180 555 / 555 -45 / -45 Weight 256 lb 3 oz 258 lb 2 oz 261 lb 3 oz Microbiology Reports for the Last 24 Hours: Microbiology 01/29/18 11:09 Sputum - Expectorated Sputum Gram Stain - Final Narrative: He appears comfortable in bed. Lungs overall are distant with faint rales in the bases this morning. Heart has a regular rate and rhythm. Abdomen is obese. Patient continues to have 2+ lower extremity edema Assessment and Plan (1) Diastolic CHF, acute on chronic Current visit: Yes Status: Acute Category: Medical Code(s): I50.33 - Acute on chronic diastolic (congestive) heart failure (2) D-dimer, elevated Current visit: Yes Status: Acute Category: Medical Code(s): R79.89 - Other specified abnormal findings of blood chemistry (3) Edema Current visit: No Status: Acute Qualifiers: Edema type: localized Qualified Code(s): R60.0 - Localized edema Category: Medical Code(s): R60.9 - Edema, unspecified (4) Hypertensive disorder Current visit: No Status: Acute Category: Medical Code(s): I10 - Essential (primary) hypertension (5) Chronic kidney disease, stage 4 (severe) Current visit: No Status: Chronic Category: Medical Code(s): N18.4 - Chronic kidney disease, stage 4 (severe) (6) Coronary arteriosclerosis Current visit: No Status: Chronic Category: Medical Code(s): I25.10 - Atherosclerotic heart disease of [place] coronary artery without angina pectoris (7) Diabetes mellitus Current visit: No Status: Chronic Qualifiers: Diabetes mellitus type: type 2 Diabetes mellitus half-way insulin use: without half-way use Diabetes mellitus complication status: without complication Qualified Code(s): E11.9 - Type 2 diabetes mellitus without complications Category: Medical Code(s): E11.9 - Type 2 diabetes mellitus without complications (8) Hypertensive heart disease Current visit: No Status: Chronic Qualifiers: Heart failure presence: without heart failure Qualified Code(s): I11.9 - Hypertensive heart disease without heart failure Category: Medical Code(s): I11.9 - Hypertensive heart disease without heart failure (9) Left lower lobe pneumonia Current visit: Yes Status: Suspected Category: Medical Code(s): J18.1 - Lobar pneumonia, unspecified organism - Assessment and plan all Dx Assessment and Plan for all problems:: Continue Bumex 1 mg twice daily. Creatinine oly slightly. If creatinine reaches 3 we will need to hold further diuretics. Repeat BMP in a.m. Repeat chest x-ray in a.m. Patient's room air sats would indicate there is slow improvement. Patient is deconditioned and I suspect it will take quite a bit of work on his part to improve his sensation of dyspnea
--- NOTE | 2018-01-30 10:19 | Progress Note ---
Subjective Date: 01/30/18 Time: 10:19 Principal diagnosis: SOA Interval history: 77-year-old white male in bed in no acute distress. Noticeably has tremors today of upper hands and jaw with shaky voice. States he not get his "shaking medicine" yesterday but did start receiving it this morning. States he has been up in the room some yesterday and today but ambulation limited by length of the oxygen hose. Exam Vital signs and Labs for Last 24 Hours: Temp Pulse Resp BP Pulse Ox 97.9 F 61 22 118/61 94 L 01/30/18 08:00 01/30/18 08:00 01/30/18 08:00 01/30/18 08:00 01/30/18 08:00 Laboratory Results - last 24 hr 01/29/18 11:11: POC Glucose 227 H 01/29/18 16:20: POC Glucose 148 H 01/29/18 20:29: POC Glucose 188 H 01/30/18 05:39: POC Glucose 128 H 01/30/18 06:47: Sodium 143, Potassium 3.7, Chloride 106, Carbon Dioxide 29, Anion Gap 11.7, BUN 52 H D, Creatinine 2.83 H, Estimated Creat Clear 35, Estimated GFR 22 L, Est GFR ( Amer) 26 L, Glucose 136 H, Calcium 8.7, Magnesium 2.2 I & O for Last 24 hours: Intake & Output 01/27/18 01/28/18 01/29/18 01/30/18 11:59 11:59 11:59 11:59 Intake Total 20 / 20 1080 / 1080 720 / 720 Output Total 200 / 200 525 / 525 525 / 525 Balance -180 / -180 555 / 555 195 / 195 Weight 256 lb 3 oz 258 lb 2 oz 261 lb 3 oz Microbiology Reports for the Last 24 Hours: Microbiology 01/28/18 08:53 Blood Blood Culture - Preliminary NO GROWTH AFTER 48 HOURS 01/28/18 08:53 Blood Blood Culture - Preliminary NO GROWTH AFTER 48 HOURS 01/29/18 11:09 Sputum - Expectorated Sputum Gram Stain - Final - *Routine Respiratory Exam Present: CTA bilaterally. Absent: accessory muscle use, rales, rhonchi, wheezes - *Routine Cardiovascular Exam Present: RRR. Absent: murmur, gallop, rubs - *Routine Extremities Exam Present: edema. Absent: calf tenderness - *Routine Neurological Exam Present: alert, oriented X3, moving all extremities Progress Note: A&P (1) Diastolic CHF, acute on chronic Status: Acute Current Visit: Yes (2) D-dimer, elevated Status: Acute Current Visit: Yes (3) Edema Status: Acute Current Visit: No (4) Hypertensive disorder Status: Acute Current Visit: No (5) Chronic kidney disease, stage 4 (severe) Status: Chronic Current Visit: No (6) Coronary arteriosclerosis Status: Chronic Current Visit: No (7) Diabetes mellitus Status: Chronic Current Visit: No (8) Hypertensive heart disease Status: Chronic Current Visit: No (9) Left lower lobe pneumonia Status: Suspected Current Visit: Yes Assessment and Plan for All Diagnoses:: 1. Continue diuretics monitoring renal status closely. 2. Patient has a component of deconditioning which exacerbates his dyspnea. Encouraged ambulation. 3. Cardiac status stable. 4. Defer Parkinson's medication to Dr. Tafoya
[2018-01-31 07:09] LABS: Anion Gap 9.5 mEq/L (5-15); Calcium 8.7 mg/dL (8.5-10.1); Potassium 3.5 mmoL/L (3.5-5.1)
--- NOTE | 2018-01-31 07:37 | Progress Note ---
Internal Medicine - PN: Subj *Date: 01/31/18 *Time: 07:35 Interval history: Patient has no complaints this morning. He has been able to ambulate without oxygen and denies shortness of breath. He ambulated in the hallway with oxygen and did well. He is frustrated by the fluid restrictions. Cough is minimal and nonproductive. Exam Vital signs and Labs for Last 24 Hours: Temp Pulse Resp BP Pulse Ox 97.5 F L 62 16 166/77 H 92 L 01/31/18 04:00 01/31/18 04:00 01/31/18 04:00 01/31/18 04:00 01/31/18 04:00 Laboratory Results - last 24 hr 01/30/18 11:27: POC Glucose 140 H 01/30/18 17:08: POC Glucose 122 H 01/30/18 20:49: POC Glucose 129 H 01/31/18 06:28: POC Glucose 95 01/31/18 06:30: Sodium 146 H, Potassium 3.5, Chloride 108 H, Carbon Dioxide 32, Anion Gap 9.5, BUN 51 H, Creatinine 2.84 H, Estimated Creat Clear 35, Estimated GFR 22 L, Est GFR ( Amer) 26 L, Glucose 99 D, Calcium 8.7 I & O for Last 24 hours: Intake & Output 01/28/18 01/29/18 01/30/18 01/31/18 11:59 11:59 11:59 11:59 Intake Total 20 / 20 1080 / 1080 820 / 820 480 / 480 Output Total 200 / 200 525 / 525 525 / 525 650 / 650 Balance -180 / -180 555 / 555 295 / 295 -170 / -170 Weight 256 lb 3 oz 258 lb 2 oz 261 lb 3 oz 256 lb 1 oz Microbiology Reports for the Last 24 Hours: Microbiology 01/29/18 11:09 Sputum - Expectorated Sputum Gram Stain - Final 01/29/18 11:09 Sputum - Expectorated Sputum Sputum Culture - Preliminary 01/28/18 08:53 Blood Blood Culture - Preliminary NO GROWTH AFTER 48 HOURS 01/28/18 08:53 Blood Blood Culture - Preliminary NO GROWTH AFTER 48 HOURS Narrative: He looks well been lungs have improved aeration in the bases. Heart has a regular rate and rhythm. Abdomen is obese and soft. Extremities have 2+ lower extremity edema. Assessment and Plan (1) Diastolic CHF, acute on chronic Current visit: Yes Status: Acute Category: Medical Code(s): I50.33 - Acute on chronic diastolic (congestive) heart failure (2) D-dimer, elevated Current visit: Yes Status: Acute Category: Medical Code(s): R79.89 - Other specified abnormal findings of blood chemistry (3) Edema Current visit: No Status: Acute Qualifiers: Edema type: localized Qualified Code(s): R60.0 - Localized edema Category: Medical Code(s): R60.9 - Edema, unspecified (4) Hypertensive disorder Current visit: No Status: Acute Category: Medical Code(s): I10 - Essential (primary) hypertension (5) Chronic kidney disease, stage 4 (severe) Current visit: No Status: Chronic Category: Medical Code(s): N18.4 - Chronic kidney disease, stage 4 (severe) (6) Coronary arteriosclerosis Current visit: No Status: Chronic Category: Medical Code(s): I25.10 - Atherosclerotic heart disease of [place] coronary artery without angina pectoris (7) Diabetes mellitus Current visit: No Status: Chronic Qualifiers: Diabetes mellitus type: type 2 Diabetes mellitus mcc insulin use: without mcc use Diabetes mellitus complication status: without complication Qualified Code(s): E11.9 - Type 2 diabetes mellitus without complications Category: Medical Code(s): E11.9 - Type 2 diabetes mellitus without complications (8) Hypertensive heart disease Current visit: No Status: Chronic Qualifiers: Heart failure presence: without heart failure Qualified Code(s): I11.9 - Hypertensive heart disease without heart failure Category: Medical Code(s): I11.9 - Hypertensive heart disease without heart failure (9) Left lower lobe pneumonia Current visit: Yes Status: Suspected Category: Medical Code(s): J18.1 - Lobar pneumonia, unspecified organism - Assessment and plan all Dx Assessment and Plan for all problems:: Patient is improving. Lowest documented room air sat is 89%. I will discuss with care management whether this will qualify him for oxygen with his diagnosis of CHF. I have encouraged him to continue to ambulate. Repeat chest x-ray today. Loosen fluid restrictions to 1500 mL's
--- NOTE | 2018-01-31 08:29 | Progress Note ---
Subjective Date: 01/31/18 Time: 08:26 Principal diagnosis: SOA Interval history: 77 yo WM in bed in NAD. Upper extremities tremor has improved. Still with complaint of difficulty eating due to jaw shaking. Denies chest pain. Exam Vital signs and Labs for Last 24 Hours: Temp Pulse Resp BP Pulse Ox 97.5 F L 62 16 166/77 H 92 L 01/31/18 04:00 01/31/18 04:00 01/31/18 04:00 01/31/18 04:00 01/31/18 08:00 Laboratory Results - last 24 hr 01/30/18 11:27: POC Glucose 140 H 01/30/18 17:08: POC Glucose 122 H 01/30/18 20:49: POC Glucose 129 H 01/31/18 06:28: POC Glucose 95 01/31/18 06:30: Sodium 146 H, Potassium 3.5, Chloride 108 H, Carbon Dioxide 32, Anion Gap 9.5, BUN 51 H, Creatinine 2.84 H, Estimated Creat Clear 35, Estimated GFR 22 L, Est GFR ( Amer) 26 L, Glucose 99 D, Calcium 8.7 I & O for Last 24 hours: Intake & Output 01/28/18 01/29/18 01/30/18 01/31/18 11:59 11:59 11:59 11:59 Intake Total 20 / 20 1080 / 1080 820 / 820 480 / 480 Output Total 200 / 200 525 / 525 525 / 525 650 / 650 Balance -180 / -180 555 / 555 295 / 295 -170 / -170 Weight 256 lb 3 oz 258 lb 2 oz 261 lb 3 oz 256 lb 1 oz Microbiology Reports for the Last 24 Hours: Microbiology 01/29/18 11:09 Sputum - Expectorated Sputum Gram Stain - Final 01/29/18 11:09 Sputum - Expectorated Sputum Sputum Culture - Preliminary 01/28/18 08:53 Blood Blood Culture - Preliminary NO GROWTH AFTER 48 HOURS 01/28/18 08:53 Blood Blood Culture - Preliminary NO GROWTH AFTER 48 HOURS - *Routine Respiratory Exam Present: CTA bilaterally. Absent: accessory muscle use, rales, rhonchi, wheezes - *Routine Cardiovascular Exam Present: RRR. Absent: murmur, gallop, rubs - *Routine Extremities Exam Present: edema. Absent: calf tenderness - *Routine Neurological Exam Present: alert, oriented X3, moving all extremities Progress Note: A&P (1) Diastolic CHF, acute on chronic Status: Acute Current Visit: Yes (2) D-dimer, elevated Status: Acute Current Visit: Yes (3) Edema Status: Acute Current Visit: No (4) Hypertensive disorder Status: Acute Current Visit: No (5) Chronic kidney disease, stage 4 (severe) Status: Chronic Current Visit: No (6) Coronary arteriosclerosis Status: Chronic Current Visit: No (7) Diabetes mellitus Status: Chronic Current Visit: No (8) Hypertensive heart disease Status: Chronic Current Visit: No (9) Left lower lobe pneumonia Status: Suspected Current Visit: Yes Assessment and Plan for All Diagnoses:: 1. Continue current medical therapy. 2. With labile hypertension will reassess renal arteries for recurrent stenosis with renal duplex. 3. Creatinine is stable on current diuretic therapy. 4. Cardiac status stable, anticipate discharge home tomorrow.
[2018-02-01 06:19] LABS: Anion Gap 10.9 mEq/L (5-15); Calcium 8.5 mg/dL (8.5-10.1); Potassium 3.9 mmoL/L (3.5-5.1)
--- NOTE | 2018-02-01 07:19 | Discharge Summary ---
General - General Admission date:: 01/28/18 Discharge date: 02/01/18 HPI HPI: 77 year old gentlemen admitted through the ER today for increasing SOB. Onset of appox 2-3 weeks ago per son who lives with him and is rn heart. He typically has some shortness of breath with activity but they noted it to be worse when he was unable to perform usual activities of showering and climbing stairs. Brought in for further evaluation this morning Patient is somewhat a poor historian and son answers some of questions. PMH significant for tobacco use, smoked for about 30 years, approx 1-2 ppd, quit about 30 years ago. Hospital Course Hospital Course: Patient was admitted and given 80 mg of Lasix intravenously, placed on a 1200 mL fluid restriction, and monitoring of I's and O's to treat acute on chronic diastolic heart failure. Despite fluid restrictions and use of diuretics patient actually gained weight the first 3 days of hospitalization and then on the fourth day of hospitalization lost 5 pounds. Eyes and nose were essentially equal during hospitalization. Diuretics were changed to Bumex 2 mg twice daily and renal function was followed closely. Creatinine reached a high of 2.8 at which point his Bumex was discontinued. Patient denied any significant change in frequency of urination with use of diuretics. Echocardiogram was performed and cardiology was consulted. A second chest x-ray performed on the day of admission was interpreted as showing a left lower lobe pneumonia. Patient was started on levofloxacin and continued on this throughout hospitalization. He will continue Levaquin for a total of 10 days. While initial O2 sats on presentation were in the low to mid 80s as hospitalization progressed patient's O2 sats oly although documented room air sat prior to discharge was still 89%. With his mild hypoxia in combination with his acute on chronic diastolic heart failure patient was discharged home with portable oxygen and oxygen concentrator read Patient has underlying hypertension and was noted to have labile blood pressures. At the suggestion of cardiology a renal duplex of both kidneys was performed which showed adequate blood flow of the proximal renal arteries were not visualized. Objective Vital signs: Temp Pulse Resp BP Pulse Ox 99.8 F H 67 18 157/77 H 93 L 02/01/18 04:00 02/01/18 04:00 02/01/18 04:00 02/01/18 04:00 02/01/18 04:00 Results Labs on day of discharge: Labs from last 24 hours 02/01/18 02/01/18 01/31/18 05:35 05:34 20:12 Sodium 147 H Potassium 3.9 Chloride 108 H Carbon Dioxide 32 Anion Gap 10.9 BUN 46 H Creatinine 2.78 H Estimated Creat Clear 35 Estimated GFR 22 L Est GFR ( Amer) 27 L Glucose 110 H POC Glucose 105 139 H Calcium 8.5 01/31/18 01/31/18 16:23 10:57 Sodium Potassium Chloride Carbon Dioxide Anion Gap BUN Creatinine Estimated Creat Clear Estimated GFR Est GFR ( Amer) Glucose POC Glucose 112 H 145 H Calcium Preliminary micro results at discharge 01/29/18 11:09 Sputum Culture - Preliminary Sputum - Expectorated Sputum 01/28/18 08:53 Blood Culture - Preliminary Blood NO GROWTH AFTER 48 HOURS 01/28/18 08:53 Blood Culture - Preliminary Blood NO GROWTH AFTER 48 HOURS DS: Diagnosis - Discharge Diagnosis (1) Diastolic CHF, acute on chronic Status: Acute (2) D-dimer, elevated Status: Resolved (3) Edema Status: Acute (4) Hypertensive disorder Status: Chronic (5) Chronic kidney disease, stage 4 (severe) Status: Chronic (6) Coronary arteriosclerosis Status: Chronic (7) Diabetes mellitus Status: Chronic (8) Hypertensive heart disease Status: Chronic (9) Left lower lobe pneumonia Status: Acute Discharge Plan - Patient Discharge Instructions ACTIVITY: Continue current activity DIET: continue same diet Patient Instructions: DI for Heart Failure, DI for Chronic Obstructive Pulmonary Disease - Follow up Plan Follow up with: Janet Gan APRN [Nurse Practitioner] - Disposition: Home, Self-[facility] Medications: Home Medications Medication Instructions Recorded Confirmed Type alprazolam 1 mg disintegrating 1 mg PO TIDP PRN tab 03/12/17 01/28/18 History tablet aspirin 81 mg tablet,delayed 81 mg PO DAILY 03/12/17 01/28/18 History release carvedilol 12.5 mg tablet 12.5 mg PO BID 03/12/17 01/28/18 History clopidogrel 75 mg tablet 75 mg PO DAILY 03/12/17 01/28/18 History febuxostat 40 mg tablet 40 mg PO DAILY 03/12/17 01/28/18 History ferrous sulfate 325 mg (65 mg 325 mg PO TID 03/12/17 01/28/18 History iron) tablet glimepiride 4 mg tablet 4 mg PO DAILY 03/12/17 01/28/18 History isosorbide mononitrate ER 30 mg 30 mg PO DAILY 03/12/17 01/28/18 History tablet,extended release 24 hr zolpidem 10 mg tablet 10 mg PO HSP PRN tab 03/12/17 01/28/18 History Amlodipine Besylate [Amlodipine 10 mg PO BID 01/28/18 01/28/18 History 10mg Tab] Atorvastatin Calcium [Atorvastatin 40 mg PO DAILY 01/28/18 01/28/18 History 40mg Tab] Furosemide [Furosemide 40MG tAB] 40 mg PO BID 01/28/18 01/28/18 History Pantoprazole Sodium [Protonix 40mg 40 mg PO DAILY 01/28/18 01/28/18 History tablet] Prescriptions/Medication Reconciliation: New levoFLOXacin [Levaquin 500mg tab] 500 mg PO DAILY #6 tab Continue alprazolam 1 mg disintegrating tablet 1 mg PO TIDP PRN tab PRN Reason: Anxiety aspirin 81 mg tablet,delayed release 81 mg PO DAILY carvedilol 12.5 mg tablet 12.5 mg PO BID ferrous sulfate 325 mg (65 mg iron) tablet 325 mg PO TID glimepiride 4 mg tablet 4 mg PO DAILY isosorbide mononitrate ER 30 mg tablet,extended release 24 hr 30 mg PO DAILY clopidogrel 75 mg tablet 75 mg PO DAILY febuxostat 40 mg tablet 40 mg PO DAILY zolpidem 10 mg tablet 10 mg PO HSP PRN tab PRN Reason: Insomnia Furosemide [Furosemide 40MG tAB] 40 mg PO BID Pantoprazole Sodium [Protonix 40mg tablet] 40 mg PO DAILY Amlodipine Besylate [Amlodipine 10mg Tab] 10 mg PO BID Atorvastatin Calcium [Atorvastatin 40mg Tab] 40 mg PO DAILY
--- NOTE | 2018-02-01 08:58 | Progress Note ---
Internal Medicine - PN: Subj *Date: 02/01/18 (N) *Time: 08:58 Exam Vital signs and Labs for Last 24 Hours: Temp Pulse Resp BP Pulse Ox 97.6 F 70 18 96/50 L 92 L 02/01/18 08:00 02/01/18 08:00 02/01/18 08:00 02/01/18 08:00 02/01/18 08:00 Laboratory Results - last 24 hr 01/31/18 10:57: POC Glucose 145 H 01/31/18 16:23: POC Glucose 112 H 01/31/18 20:12: POC Glucose 139 H 02/01/18 05:34: POC Glucose 105 02/01/18 05:35: Sodium 147 H, Potassium 3.9, Chloride 108 H, Carbon Dioxide 32, Anion Gap 10.9, BUN 46 H, Creatinine 2.78 H, Estimated Creat Clear 35, Estimated GFR 22 L, Est GFR ( Amer) 27 L, Glucose 110 H, Calcium 8.5 I & O for Last 24 hours: Intake & Output 01/29/18 01/30/18 01/31/18 02/01/18 23:59 23:59 23:59 23:59 Intake Total 1060 / 1060 820 / 820 970 / 970 360 / 360 Output Total 1050 / 1050 650 / 650 1650 / 1650 450 / 450 Balance 170 / 170 -680 / -680 -90 / -90 Weight 117.084 kg 118.473 kg 116.148 kg 115.808 kg Microbiology Reports for the Last 24 Hours: Microbiology 01/29/18 11:09 Sputum - Expectorated Sputum Gram Stain - Final 01/29/18 11:09 Sputum - Expectorated Sputum Sputum Culture - Final Normal Respiratory Francesca Assessment and Plan (1) Diastolic CHF, acute on chronic Current visit: Yes Status: Acute Category: Medical Code(s): I50.33 - Acute on chronic diastolic (congestive) heart failure (2) D-dimer, elevated Current visit: Yes Status: Resolved Category: Medical Code(s): R79.89 - Other specified abnormal findings of blood chemistry (3) Edema Current visit: No Status: Acute Qualifiers: Edema type: localized Qualified Code(s): R60.0 - Localized edema Category: Medical Code(s): R60.9 - Edema, unspecified (4) Hypertensive disorder Current visit: No Status: Chronic Category: Medical Code(s): I10 - Essential (primary) hypertension (5) Chronic kidney disease, stage 4 (severe) Current visit: No Status: Chronic Category: Medical Code(s): N18.4 - Chronic kidney disease, stage 4 (severe) (6) Coronary arteriosclerosis Current visit: No Status: Chronic Category: Medical Code(s): I25.10 - Atherosclerotic heart disease of [place] coronary artery without angina pectoris (7) Diabetes mellitus Current visit: No Status: Chronic Qualifiers: Diabetes mellitus type: type 2 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 use Diabetes mellitus complication status: without compl ication Qualified Code(s): E11.9 - Type 2 diabetes mellitus without complications Category: Medical Code(s): E11.9 - Type 2 diabetes mellitus without complications (8) Hypertensive heart disease Current visit: No Status: Chronic Qualifiers: Heart failure presence: without heart failure Qualified Code(s): I11.9 - Hypertensive heart disease without heart failure Category: Medical Code(s): I11.9 - Hypertensive heart disease without heart failure (9) Left lower lobe pneumonia Current visit: Yes Status: Acute Category: Medical Code(s): J18.1 - Lobar pneumonia, unspecified organism The patient's infection will respond to the chosen ABx?: Yes Is the patient receiving the right drug, dose, and route?: Yes Could a more targeted ABx be ordered?: No (NORMAL FRANCESCA)
== END 2018-02-01 10:32 | disposition home or self-care (01) ==
LOC: 2ND 08:24 → ER 08:24 → 2ND 11:05
PROVIDERS: ADMIT Family Medicine; ATTEND Family Medicine

== ENCOUNTER → 2018-03-01 12:21 | Outpatient (CLI) | payer MEDICARE, BC, SELFPAY | PROVIDERS: PCP Family Medicine; Visit Provider Nurse Practitioner Family | DX: I49.9 Cardiac arrhythmia, unspecified (principal) | CPT/HCPCS: 93225; 93226 ==

== ENCOUNTER 2018-06-01 08:27 | Inpatient (IN) ==
--- NOTE | 2018-06-01 08:39 | Emergency Department Note ---
ED Disposition Clinical Impression: Troponin level elevated CHF (congestive heart failure) Qualifiers: Heart failure type: unspecified Heart failure chronicity: unspecified Qualified Code(s): I50.9 - Heart failure, unspecified Disposition: Admitted as Observation Condition on Discharge: Good - Critical Care Critical Care Time: No Attestation: On , the high probability of a clinically significant, sudden or life threatening deterioration of the following system(s) required my full and direct attention, intervention and personal management. The time I documented below is in addition to time spent performing reported procedures but includes the following listed in this critical care notation. Medical Decision Making - Medical Records Medical records reviewed: Yes: I reviewed the patient's medical records. - Naman Inquiry Pt receiving controlled substance: No Vital Signs: 06/01/18 08:28 06/01/18 09:03 06/01/18 09:10 Temperature 99 F Temperature Source Oral Pulse Rate 60 Pulse Rate [Left Radial] 53 L 60 Respiratory Rate 20 18 Blood Pressure [Right Arm] 136/62 149/64 H Blood Pressure Mean [Right Arm] 86 92 Blood Pressure Source [Right Arm] Automatic Cuff Automatic Cuff Blood Pressure Position [Right Arm] Sitting Sitting 02 Sat by Pulse Oximetry 95 96 95 Oxygen Delivery Method Nasal Cannula Nasal Cannula Nasal Cannula Oxygen Flow Rate (LPM) 3 3 06/01/18 09:37 06/01/18 09:50 06/01/18 10:00 Temperature Temperature Source Pulse Rate Pulse Rate [Left Radial] 57 L 59 L 58 L Respiratory Rate 18 Blood Pressure [Right Arm] 161/78 H 145/73 H 165/88 H Blood Pressure Mean [Right Arm] 105 97 113 Blood Pressure Source [Right Arm] Automatic Cuff Automatic Cuff Blood Pressure Position [Right Arm] Sitting Sitting 02 Sat by Pulse Oximetry 96 95 93 L Oxygen Delivery Method Nasal Cannula Room Air Oxygen Flow Rate (LPM) 3 06/01/18 10:30 06/01/18 10:33 Temperature Temperature Source Pulse Rate Pulse Rate [Left Radial] 55 L 57 L Respiratory Rate 16 Blood Pressure [Right Arm] 159/72 H 167/74 H Blood Pressure Mean [Right Arm] 101 105 Blood Pressure Source [Right Arm] Blood Pressure Position [Right Arm] 02 Sat by Pulse Oximetry 92 L 92 L Oxygen Delivery Method Nasal Cannula Oxygen Flow Rate (LPM) 3 - Lab Data Lab results reviewed: Yes: I reviewed the patient's lab results. Lab Results 06/01/18 08:45: WBC 8.0, RBC 3.29 L, Hgb 9.6 L, Hct 29.5 L, MCV 89.6, MCH 29.2, MCHC 32.5, RDW 12.7, Plt Count 215, MPV 9.0, Neut % (Auto) 78.8, Lymph % (Auto) 13.1, [place] % (Auto) 5.8, Eos % (Auto) 1.9, Baso % (Auto) 0.2, Neut # (Auto) 6.3, Lymph # (Auto) 1.1, [place] # (Auto) 0.5, Eos # (Auto) 0.2, Baso # (Auto) 0.0 06/01/18 08:45: D-Dimer 393 06/01/18 08:45: Sodium 145, Potassium 3.5, Chloride 106, Carbon Dioxide 33 H, Anion Gap 9.5, BUN 52 H, Creatinine 2.66 H, Estimated Creat Clear 38, Estimated GFR 23 L, Est GFR ( Amer) 28 L, Glucose 127 H, Calcium 9.1, Total Bilirubin 0.5, AST 13 L, ALT 16, Alkaline Phosphatase 90, Troponin I 0.08 H, Total Protein 6.6, Albumin 2.4 L, Globulin 4.2 H, Albumin/Globulin Ratio 0.6 L 06/01/18 08:45: Lactate 0.4 06/01/18 08:45: B-Natriuretic Peptide 2240 H Result diagrams: 06/01/18 08:45 06/01/18 08:45 Orders (Tests/Meds): ED MEDICATIONS Discontinued Medications Generic Name Dose Route Start Last Admin Trade Name Freq PRN Reason Stop Dose Admin Albuterol/Ipratropium 3 ml 06/01/18 08:35 06/01/18 09:09 Duoneb 3ml Neb IH 06/01/18 08:36 3 ml ONCE ONE Administration Methylprednisolone Sodium Succinate 125 mg 06/01/18 08:35 06/01/18 08:59 Solu-Medrol 125mg/2ml Vial IV 06/01/18 08:36 125 mg ONCE ONE Administration ORDERS Category Date Time Status XR chest portable Stat Exams 06/01/18 08:34 Taken Blood Culture Stat Micro 06/01/18 09:00 Received - Radiology Data #1 Image(s): Chest Image Reviewed: Yes I reviewed the patient's radiology image - ECG Data Tracing #1 I reviewed this ECG and interpreted as documented below: Normal Sinus Rhythm: Yes (pvc, lvh, no stemi) Medical Decision Narrative: treatment and admit d/w Dr Tafoya General Adult HPI - General Chief complaint: Fall Stated complaint: fall Time Seen by Provider: 06/01/18 08:36 Mode of Arrival: EMS Source of Information: Patient, EMS - History of Present Illness HPI narrative: mild to mod progressive general weakness and short of breath w/ ALAMO, no pain, no loc, speech fluent, no fever - Related Data Home Medications Medication Instructions Recorded Confirmed alprazolam 1 mg disintegrating 1 mg PO TIDP PRN tab 03/12/17 04/16/18 tablet carvedilol 12.5 mg tablet 12.5 mg PO BID 03/12/17 04/16/18 clopidogrel 75 mg tablet 75 mg PO DAILY 03/12/17 04/16/18 febuxostat 40 mg tablet 40 mg PO DAILY 03/12/17 04/16/18 ferrous sulfate 325 mg (65 mg 325 mg PO TID 03/12/17 04/16/18 iron) tablet glimepiride 4 mg tablet 4 mg PO DAILY 03/12/17 04/16/18 isosorbide mononitrate ER 30 mg 30 mg PO DAILY 03/12/17 04/16/18 tablet,extended release 24 hr zolpidem 10 mg tablet 10 mg PO HSP PRN tab 03/12/17 04/16/18 Amlodipine Besylate [Amlodipine 10 mg PO BID 01/28/18 04/16/18 10mg Tab] Atorvastatin Calcium [Atorvastatin 40 mg PO DAILY 01/28/18 04/16/18 40mg Tab] Pantoprazole Sodium [Protonix 40mg 40 mg PO DAILY 01/28/18 04/16/18 tablet] apixaban 2.5 mg tablet 2.5 mg PO BID 03/19/18 04/16/18 Previous Rx's Medication Instructions Recorded Albuterol Sulfate [Albuterol 2.5 mg IH Q4HP PRN #25 neb 02/28/18 Sulfate 2.5mg/0.5ml Neb] furosemide 40 mg tablet 40 mg PO BID #60 tab 03/19/18 Allergies Allergy/AdvReac Type Severity Reaction Status Date / Time cefuroxime [From CEFTIN] Allergy Unknown Verified 04/16/18 12:34 vancomycin [VANCOMYCIN] Allergy Unknown Verified 04/16/18 12:34 [facility] History - Hepatitis A Screen Attestation statement:: This patient has been screened for Hepatitis A risk factors. Medical History: Reports:: Arrhythmia, Atherosclerotic Heart Disease, Congestive Heart Failure, Coronary Artery Disease, Diabetes Mellitus Type 1, Diabetes Mellitus Type 2, Home Oxygen (2), Hyperlipidemia, Peripheral Artery Disease, Peripheral Vascular Disease, Renal Disease Denies:: Cancer, MRSA Laterality Cases: Bilateral: Tonsillectomy Other Surgeries: Yes: Cardiac Catheterization, Cardiac Surgery, Coronary Stent, Other Amputation: No Fractures: No - Social History Smoking Status: Former smoker Tobacco Type: cigarettes # Packs/Day (cigarettes): 2 #Yrs smoked (if former smoker): 20 Alcohol Intake: never Substance Use Type: denies use Occupational Status: retired Housing: house Household Members: children Family Hx:: Non-contributory ROS Obtained: Yes Systems reviewed as appropriate & no additional complaints - Constitutional Constitutional: Denies fever(s) - Eyes Eyes: Denies change in vision - ENT Ears, Nose, Mouth, and Throat: Denies nasal congestion - Cardiovascular Cardiovascular: Denies chest pain - Respiratory Respiratory: Yes dyspnea, Yes dyspnea on exertion - Gastrointestinal Gastrointestingal: Denies: abdominal pain - Musculoskeletal Musculoskeletal: Denies back pain - Integumentary/Breasts Skin/Breast: Denies rash - Neurologic Neurologic: Denies dizziness Physical Exam - General General appearance: alert, in no apparent distress - Head Head exam: atraumatic - Eye Eye exam: Present: PERRL, EOMI - ENT ENT exam: Present: normal exam, normal oropharynx - Neck Neck exam: Present: normal inspection, full ROM - Chest Chest inspection: Present: normal inspection - Respiratory Respiratory exam: Present: wheezes. Absent: stridor - Cardiovascular Cardiovascular exam: Present: regular rate, normal rhythm - Abdominal Exam Abdominal exam: Present: soft. Absent: tenderness - Extremities Exam Extremities exam: Present: pedal edema - Back Exam Back exam: Absent: vertebral tenderness - Neurological Exam Neurological exam: Present: alert, oriented X3 - Psychiatric Psychiatric exam: Present: normal affect, normal mood - Skin Skin exam: Present: warm, dry. Absent: cyanosis
[2018-06-01 08:59] LABS: Basophils % 0.2 % (0.1-2.0); Eosinophils # 0.2 K/mm3 (0.0-0.4); Eosinophils % 1.9 % (0.1-12.0); Hematocrit 29.5 % (42.0-52.0); Hemoglobin 9.6 g/dL (14.1-18.0); Lymphocytes # 1.1 K/mm3 (0.7-4.5); Lymphocytes % 13.1 % (10-50); Mean Corpuscular HGB Conc 32.5 g/dL (31.8-35.4); Mean Corpuscular Hemoglobin 29.2 pg (27.0-31.2); Mean Corpuscular Volume 89.6 fl (80-94); Monocytes # 0.5 K/mm3 (0.1-1.0); Monocytes % 5.8 % (1.7-9.3); Neutrophils # 6.3 K/mm3 (1.8-7.8); Neutrophils % 78.8 % (37.0-80.0); Platelet Count 215 K/mm3 (142-424); Red Blood Count 3.29 M/mm3 (4.60-6.20); Red Cell Distribution Width 12.7 % (11.5-17.5)
[2018-06-01 09:20] LABS: Albumin Level 2.4 gm/dL (3.4-5.0); Albumin/Globulin Ratio 0.6 (1.1-1.8); Anion Gap 9.5 mEq/L (5-15); Bilirubin,Total 0.5 mg/dL (0.2-1.0); Calcium 9.1 mg/dL (8.5-10.1); Globulin 4.2 gm/dl (1.3-3.2); Potassium 3.5 mmoL/L (3.5-5.1); Total Protein,Serum 6.6 gm/dL (6.4-8.2)
--- NOTE | 2018-06-01 14:28 | History & Physical Report ---
*Admission Date: 06/01/18 *Chief complaint: Shortness of breath *History of present illness: 77-year-old male with coronary artery disease, chronic kidney disease, chronic lung disease presented to the emergency department after a fall overnight. Over the last week patient has had medication adjustments to try to aid with diuresis as he felt like he was carrying around more fluids. Over the last 2-3 days the patient has felt increasingly weak and has noted lightheadedness upon standing. He became lightheaded overnight while trying to go to the bathroom and fell. This morning he persistently felt short of breath as well as weak and decision was made to come to the emergency department. In the ER workup was begun. Patient did not have any hypoxia. Chest x-ray was suggestive of mild fluid overload and he had an elevated BNP as well as a troponin of 0.08. Patient denied chest pain in the emergency department and continues to deny chest pain. Decision was made to admit the patient for exacerbation of congestive heart failure. Patient does have a normal ejection fraction of 55% on last ech ocardiogram in January. It is felt that he has some diastolic dysfunction. Since admission patient states he has urinated 3 times although at present this is not being measured. [facility] History I have reviewed the patient's past medical history: Yes Medical History: Reports:: Arrhythmia, Atherosclerotic Heart Disease, Congestive Heart Failure, Coronary Artery Disease, Diabetes Mellitus Type 1, Diabetes Mellitus Type 2, Home Oxygen (2), Hyperlipidemia, Peripheral Artery Disease, Peripheral Vascular Disease, Renal Disease Denies:: Cancer, Internal Pacemaker, MRSA *Have you ever received a pneumonia vaccine?: Yes *Have you received a flu vaccine this season?: Yes Other Medical History: Reports: Cataracts, Sinus Problems Laterality Cases: Bilateral: Tonsillectomy Other Surgeries: Yes: Cardiac Catheterization, Cardiac Surgery, Coronary Stent, Other. No: Pacemaker Amputation: No Fractures: No - *Social History Smoking Status: Current every day smoker Tobacco Type: cigarettes # Packs/Day (cigarettes): 2 #Yrs smoked (if former smoker): 20 Alcohol Intake: never Substance Use Type: denies use *Occupational Status:: retired, disabled Housing: house Household Members: children *Travel in the last 8 weeks: None - Psychiatric History Expresses thoughts of harming self/others: None Suicide Plan Description: No Plan Family Hx:: Non-contributory Review of Systems - Review of Systems Review of systems:: pertinent systems reviewed and negative unless documented below - Constitutional Denies body ache(s), Denies chills, Denies fever(s) - ENT Denies abnormal hearing, Denies dry mouth - *Cardiovascular Reports shortness of breath, Reports shortness of breath with activity, Denies chest pain, Denies chest pain at rest - *Neurologic Denies dizziness Meds Home Medications Medication Instructions Recorded Confirmed Type alprazolam 1 mg disintegrating 1 mg PO TIDP PRN tab 03/12/17 06/01/18 History tablet carvedilol 12.5 mg tablet 12.5 mg PO BID 03/12/17 06/01/18 History febuxostat 40 mg tablet 40 mg PO DAILY 03/12/17 06/01/18 History ferrous sulfate 325 mg (65 mg 325 mg PO TID 03/12/17 06/01/18 History iron) tablet glimepiride 4 mg tablet 4 mg PO DAILY 03/12/17 06/01/18 History isosorbide mononitrate ER 30 mg 30 mg PO DAILY 03/12/17 06/01/18 History tablet,extended release 24 hr zolpidem 10 mg tablet 10 mg PO HSP PRN tab 03/12/17 06/01/18 History RX: Amlodipine Besylate 10 mg PO BID 01/28/18 06/01/18 History [Amlodipine 10mg Tab] RX: Atorvastatin Calcium 40 mg PO DAILY 01/28/18 06/01/18 History [Atorvastatin 40mg Tab] RX: Pantoprazole Sodium [Protonix 40 mg PO DAILY 01/28/18 06/01/18 History 40mg tablet] Albuterol Sulfate [Albuterol 2.5 mg IH Q4HP PRN #25 neb 02/28/18 06/01/18 Rx Sulfate 2.5mg/0.5ml Neb] apixaban 2.5 mg tablet 2.5 mg PO BID 03/19/18 06/01/18 History furosemide 40 mg tablet 40 mg PO BID #60 tab 03/19/18 06/01/18 Rx Allergies Allergy/AdvReac Type Severity Reaction Status Date / Time cefuroxime [From CEFTIN] Allergy Unknown Verified 04/16/18 12:34 vancomycin [VANCOMYCIN] Allergy Unknown Verified 04/16/18 12:34 Exam Vital signs and Labs for Last 24 Hours: Temp Pulse Resp BP Pulse Ox 97.9 F 63 24 152/77 H 94 L 06/01/18 12:16 06/01/18 12:16 06/01/18 12:16 06/01/18 12:16 06/01/18 12:16 Laboratory Results - last 24 hr 06/01/18 08:45: WBC 8.0, RBC 3.29 L, Hgb 9.6 L, Hct 29.5 L, MCV 89.6, MCH 29.2, MCHC 32.5, RDW 12.7, Plt Count 215, MPV 9.0, Neut % (Auto) 78.8, Lymph % (Auto) 13.1, [place]rell % (Auto) 5.8, Eos % (Auto) 1.9, Baso % (Auto) 0.2, Neut # (Auto) 6.3, Lymph # (Auto) 1.1, [place] # (Auto) 0.5, Eos # (Auto) 0.2, Baso # (Auto) 0.0 06/01/18 08:45: D-Dimer 393 06/01/18 08:45: Sodium 145, Potassium 3.5, Chloride 106, Carbon Dioxide 33 H, Anion Gap 9.5, BUN 52 H, Creatinine 2.66 H, Estimated Creat Clear 38, Estimated GFR 23 L, Est GFR ( Amer) 28 L, Glucose 127 H, Calcium 9.1, Total Bilirubin 0.5, AST 13 L, ALT 16, Alkaline Phosphatase 90, Troponin I 0.08 H, Total Protein 6.6, Albumin 2.4 L, Globulin 4.2 H, Albumin/Globulin Ratio 0.6 L 06/01/18 08:45: Lactate 0.4 06/01/18 08:45: B-Natriuretic Peptide 2240 H 06/01/18 13:52: Troponin I 0.06 I & O for Last 24 hours: Intake & Output 05/30/18 05/31/18 06/01/18 06/02/18 11:59 11:59 11:59 11:59 Weight 260 lb 258 lb 6 oz Narrative: Patient appears pale. He has noted head tremor. Oropharynx is moist. Neck is without carotid bruits and is supple. Lungs have diminished breath sounds at the bases with rales heard in the left base and left midlung. Heart has a regular rate and rhythm. Abdomen is obese. Extremities have chronic lymphedema. Assessment and Plan (1) Diastolic CHF, acute on chronic Current visit: No Status: Acute Category: Medical Code(s): I50.33 - Acute on chronic diastolic (congestive) heart failure Lasix will be given twice daily. Serial BMPs will be ordered. Fluid restrictions of 1200 mL's for now (2) COPD (chronic obstructive pulmonary disease) Current visit: No Status: Acute Qualifiers: COPD type: unspecified COPD Qualified Code(s): J44.9 - Chronic obstructive pulmonary disease, unspecified Category: Medical Code(s): J44.9 - Chronic obstructive pulmonary disease, unspecified (3) Left lower lobe pneumonia Current visit: No Status: Suspected Category: Medical Code(s): J18.1 - Lobar pneumonia, unspecified organism Repeat chest x-ray in the morning after diuresis. Collect sputum for culture. 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 use: without nursing home use Diabetes mellitus complication status: without complication Qualified Code(s): E11.9 - Type 2 diabetes mellitus without complications Category: Medical Code(s): E11.9 - Type 2 diabetes mellitus without complications Fingersticks before meals and at bedtime with sliding scale insulin coverage (7) Hypertensive heart disease Current visit: No Status: Chronic Qualifiers: Heart failure presence: without heart failure Qualified Code(s): I11.9 - Hypertensive heart disease without heart failure Category: Medical Code(s): I11.9 - Hypertensive heart disease without heart failure (8) ILYA (renal artery stenosis) Current visit: No Status: Chronic Category: Medical Code(s): I70.1 - Atherosclerosis of renal artery
--- NOTE | 2018-06-01 15:00 | Pharmacy Consult Notes ---
[facility] Pharmacy VTE Monitoring - Patient Demographics Admission date: 06/01/18 Report Date: 06/01/18 Time: 15:00 Allergies/Adverse Reactions: Patient Allergies cefuroxime [From CEFTIN] Allergy (Unknown, Verified 04/16/18 12:34) vancomycin [VANCOMYCIN] Allergy (Unknown, Verified 04/16/18 12:34) Height: 1.88 m Weight: 117.197 kg Patient Problems: Current Active Problems CHF (congestive heart failure) (Acute) Troponin level elevated (Acute) - VTE Risk Labs: VTE Related Lab Results Hgb 9.6 g/dL (14.1-18.0) L 06/01/18 08:45 Hct 29.5 % (42.0-52.0) L 06/01/18 08:45 Plt Count 215 K/mm3 (142-424) 06/01/18 08:45 BUN 52 mg/dL (7-18) H 06/01/18 08:45 Creatinine 2.66 mg/dL (0.70-1.30) H 06/01/18 08:45 Estimated Creat Clear 38 mL/min (50-200) 06/01/18 08:45 - Prophylaxis VTE Prophylaxis Ordered?: Yes Types of VTE Prophylaxis: TEDS Knee High, Pharmacological Location of Applied Device: Bilateral Lower Extremeties Pharmacologic Type: Other (ELIQUIS)
[2018-06-02 06:44] LABS: Basophils % 0.1 % (0.1-2.0); Eosinophils % 0.2 % (0.1-12.0); Hematocrit 31.8 % (42.0-52.0); Hemoglobin 10.5 g/dL (14.1-18.0); Lymphocytes # 0.8 K/mm3 (0.7-4.5); Mean Corpuscular HGB Conc 33.1 g/dL (31.8-35.4); Mean Corpuscular Hemoglobin 29.7 pg (27.0-31.2); Mean Corpuscular Volume 89.5 fl (80-94); Mean Platelet Volume 9.6 fl (7.4-10.4); Monocytes # 0.4 K/mm3 (0.1-1.0); Monocytes % 5.2 % (1.7-9.3); Neutrophils # 6.1 K/mm3 (1.8-7.8); Neutrophils % 83.5 % (37.0-80.0); Platelet Count 229 K/mm3 (142-424); Red Blood Count 3.55 M/mm3 (4.60-6.20); Red Cell Distribution Width 12.7 % (11.5-17.5); White Blood Count 7.3 K/mm3 (4.8-10.8)
[2018-06-02 06:53] LABS: Anion Gap 12.6 mEq/L (5-15); Calcium 9.2 mg/dL (8.5-10.1); Potassium 3.6 mmoL/L (3.5-5.1)
--- NOTE | 2018-06-02 07:36 | Progress Note ---
Internal Medicine - PN: Subj *Date: 06/02/18 *Time: 07:34 Interval history: Patient has no complaints. He became lightheaded this morning when he got out of bed to go have his chest x-ray. However since that time he has not had any further lightheadedness upon standing. Exam Vital signs and Labs for Last 24 Hours: Temp Pulse Resp BP Pulse Ox 97.6 F 63 20 156/72 H 96 06/02/18 04:00 06/02/18 04:00 06/02/18 04:00 06/02/18 04:00 06/02/18 04:00 Laboratory Results - last 24 hr 06/01/18 08:45: WBC 8.0, RBC 3.29 L, Hgb 9.6 L, Hct 29.5 L, MCV 89.6, MCH 29.2, MCHC 32.5, RDW 12.7, Plt Count 215, MPV 9.0, Neut % (Auto) 78.8, Lymph % (Auto) 13.1, Terrell % (Auto) 5.8, Eos % (Auto) 1.9, Baso % (Auto) 0.2, Neut # (Auto) 6.3, Lymph # (Auto) 1.1, [place]rell # (Auto) 0.5, Eos # (Auto) 0.2, Baso # (Auto) 0.0 06/01/18 08:45: D-Dimer 393 06/01/18 08:45: Sodium 145, Potassium 3.5, Chloride 106, Carbon Dioxide 33 H, Anion Gap 9.5, BUN 52 H, Creatinine 2.66 H, Estimated Creat Clear 38, Estimated GFR 23 L, Est GFR ( Amer) 28 L, Glucose 127 H, Calcium 9.1, Total Bilirubin 0.5, AST 13 L, ALT 16, Alkaline Phosphatase 90, Troponin I 0.08 H, Total Protein 6.6, Albumin 2.4 L, Globulin 4.2 H, Albumin/Globulin Ratio 0.6 L 06/01/18 08:45: Lactate 0.4 06/01/18 08:45: B-Natriuretic Peptide 2240 H 06/01/18 13:52: Troponin I 0.06 06/01/18 17:01: POC Glucose 258 H 06/01/18 20:08: POC Glucose 247 H 06/02/18 06:04: POC Glucose 178 H 06/02/18 06:37: WBC 7.3, RBC 3.55 L, Hgb 10.5 L, Hct 31.8 L, MCV 89.5, MCH 29.7, MCHC 33.1, RDW 12.7, Plt Count 229, MPV 9.6, Neut % (Auto) 83.5 H, Lymph % (Auto) 11.0, [place]rell % (Auto) 5.2, Eos % (Auto) 0.2, Baso % (Auto) 0.1, Neut # (Au to) 6.1, Lymph # (Auto) 0.8, [place]rell # (Auto) 0.4, Eos # (Auto) 0.0, Baso # (Auto) 0.0 06/02/18 06:37: Sodium 145, Potassium 3.6, Chloride 105, Carbon Dioxide 31, Anion Gap 12.6, BUN 54 H, Creatinine 2.62 H, Estimated Creat Clear 38, Estimated GFR 24 L, Est GFR ( Amer) 29 L, Glucose 187 H D, Calcium 9.2 I & O for Last 24 hours: Intake & Output 05/30/18 05/31/18 06/01/18 06/02/18 11:59 11:59 11:59 11:59 Intake Total 254 / 254 Output Total 800 / 800 Balance -546 / -546 Weight 260 lb 256 lb 4 oz Narrative: He is awake and alert sitting up on side of the bed. Lung exam has improved with significantly less rales in the left side than previously. There are still faint rales at the right lung base Assessment and Plan (1) Diastolic CHF, acute on chronic Current visit: No Status: Acute Category: Medical Code(s): I50.33 - Acute on chronic diastolic (congestive) heart failure (2) COPD (chronic obstructive pulmonary disease) Current visit: No Status: Acute Qualifiers: COPD type: unspecified COPD Qualified Code(s): J44.9 - Chronic obstructive pulmonary disease, unspecified Category: Medical Code(s): J44.9 - Chronic obstructive pulmonary disease, unspecified (3) Left lower lobe pneumonia Current visit: No Status: Suspected Category: Medical Code(s): J18.1 - Lobar pneumonia, unspecified organism (4) Chronic kidney disease, stage 4 (severe) Current visit: No Status: Chronic Category: Medical Code(s): N18.4 - Chronic kidney disease, stage 4 (severe) (5) Coronary arteriosclerosis Current visit: No Status: Chronic Category: Medical Code(s): I25.10 - Atherosclerotic heart disease of [place] coronary artery without angina pectoris (6) Diabetes mellitus Current visit: No Status: Chronic Qualifiers: Diabetes mellitus type: type 2 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 care home use Diabetes mellitus complication status: without complication Qualified Code(s): E11.9 - Type 2 diabetes mellitus without complications Category: Medical Code(s): E11.9 - Type 2 diabetes mellitus without complicati ons (7) Hypertensive heart disease Current visit: No Status: Chronic Qualifiers: Heart failure presence: without heart failure Qualified Code(s): I11.9 - Hypertensive heart disease without heart failure Category: Medical Code(s): I11.9 - Hypertensive heart disease without heart failure (8) ILYA (renal artery stenosis) Current visit: No Status: Chronic Category: Medical Code(s): I70.1 - Atherosclerosis of renal artery - Assessment and plan all Dx Assessment and Plan for all problems:: Repeat chest x-ray has been ordered for this morning. Patient has had negative fluid balance since admission. Encourage ambulation with assistance. Possible discharge tomorrow
[2018-06-03 06:19] LABS: Anion Gap 11.5 mEq/L (5-15); Calcium 9.1 mg/dL (8.5-10.1); Potassium 3.5 mmoL/L (3.5-5.1)
--- NOTE | 2018-06-03 08:00 | Progress Note ---
Internal Medicine - PN: Subj *Date: 06/03/18 *Time: 07:58 Interval history: Patient complains of shortness of breath. He states he went for a walk with nursing assistance yesterday afternoon and became very winded. He feels like he is not recovered since that time. His sleep is been intermittent. Exam Vital signs and Labs for Last 24 Hours: Temp Pulse Resp BP Pulse Ox 97.9 F 87 20 159/57 H 88 L 06/03/18 04:00 06/03/18 05:43 06/03/18 04:00 06/03/18 04:00 06/03/18 05:43 Laboratory Results - last 24 hr 06/02/18 11:41: POC Glucose 206 H 06/02/18 16:44: POC Glucose 120 H 06/02/18 20:02: POC Glucose 167 H 06/03/18 05:56: Sodium 147 H, Potassium 3.5, Chloride 107, Carbon Dioxide 32, Anion Gap 11.5, BUN 64 H, Creatinine 2.50 H, Estimated Creat Clear 39, Estimated GFR 25 L, Est GFR ( Amer) 30 L, Glucose 101 D, Calcium 9.1 06/03/18 06:31: POC Glucose 104 I & O for Last 24 hours: Intake & Output 05/31/18 06/01/18 06/02/18 06/03/18 11:59 11:59 11:59 11:59 Intake Total 494 / 494 604 / 604 Output Total 800 / 800 880 / 880 Balance -306 / -306 -276 / -276 Weight 260 lb 256 lb 4 oz 255 lb 3 oz Microbiology Reports for the Last 24 Hours: Microbiology 06/02/18 17:56 Sputum - Expectorated Sputum Gram Stain - Final Narrative: He looks afraid. There is no increased work of breathing. Lung exam reveals dense rales bilaterally. Heart has a regular rate and rhythm. Lower extremities remain edematous Assessment and Plan (1) Diastolic CHF, acute on chronic Current visit: No Status: Acute Category: Medical Code(s): I50.33 - Acute on chronic diastolic (congestive) heart failure (2) COPD (chronic obstructive pulmonary disease) Current visit: No Status: Acute Qualifiers: COPD type: unspecified COPD Qualified Code(s): J44.9 - Chronic obstructive pulmonary disease, unspecified Category: Medical Code(s): J44.9 - Chronic obstructive pulmonary disease, unspecified (3) Left lower lobe pneumonia Current visit: No Status: Suspected Category: Medical Code(s): J18.1 - Lobar pneumonia, unspecified organism (4) Chronic kidney disease, stage 4 (severe) Current visit: No Status: Chronic Category: Medical Code(s): N18.4 - Chronic kidney disease, stage 4 (severe) (5) Coronary arteriosclerosis Current visit: No Status: Chronic Category: Medical Code(s): I25.10 - Atherosclerotic heart disease of [place] coronary artery without angina pectoris (6) Diabetes mellitus Current visit: No Status: Chronic Qualifiers: Diabetes mellitus type: type 2 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 use: without intermediate use Diabetes mellitus complication status: without complication Qualified Code(s): E11.9 - Type 2 diabetes mellitus without complications Category: Medical Code(s): E11.9 - Type 2 diabetes mellitus without complications (7) Hypertensive heart disease Current visit: No Status: Chronic Qualifiers: Heart failure presence: without heart failure Qualified Code(s): I11.9 - Hypertensive heart disease without heart failure Category: Medical Code(s): I11.9 - Hypertensive heart disease without heart failure (8) ILYA (renal artery stenosis) Current visit: No Status: Chronic Category: Medical Code(s): I70.1 - Atherosclerosis of renal artery - Assessment and plan all Dx Assessment and Plan for all problems:: Chest x-ray has been suspicious for pneumonia although patient's presentation is been more consistent with being fluid overloaded. I am going to add on antibiotics and steroids with increased frequency of breathing treatments.
[2018-06-04 06:27] LABS: Basophils % 0.1 % (0.1-2.0); Eosinophils % 0.1 % (0.1-12.0); Hematocrit 31.6 % (42.0-52.0); Hemoglobin 10.5 g/dL (14.1-18.0); Lymphocytes # 0.5 K/mm3 (0.7-4.5); Lymphocytes % 7.8 % (10-50); Mean Corpuscular HGB Conc 33.1 g/dL (31.8-35.4); Mean Corpuscular Hemoglobin 29.4 pg (27.0-31.2); Mean Corpuscular Volume 88.8 fl (80-94); Mean Platelet Volume 9.2 fl (7.4-10.4); Monocytes # 0.2 K/mm3 (0.1-1.0); Monocytes % 3.1 % (1.7-9.3); Neutrophils # 5.8 K/mm3 (1.8-7.8); Platelet Count 218 K/mm3 (142-424); Red Blood Count 3.57 M/mm3 (4.60-6.20); Red Cell Distribution Width 12.7 % (11.5-17.5); White Blood Count 6.5 K/mm3 (4.8-10.8)
[2018-06-04 06:35] LABS: Anion Gap 12.6 mEq/L (5-15); Calcium 9.3 mg/dL (8.5-10.1); Potassium 3.6 mmoL/L (3.5-5.1)
--- NOTE | 2018-06-04 07:36 | Progress Note ---
Internal Medicine - PN: Subj *Date: 06/04/18 *Time: 07:34 Interval history: Patient has no complaints this morning. He feels his shortness of breath has improved a small amount. He is remained minimally ambulatory. His cough is mostly nonproductive. Exam Vital signs and Labs for Last 24 Hours: Temp Pulse Resp BP Pulse Ox 97.4 F L 72 20 157/54 H 94 L 06/04/18 04:00 06/04/18 05:43 06/04/18 04:00 06/04/18 04:00 06/04/18 05:43 Laboratory Results - last 24 hr 06/03/18 12:15: POC Glucose 177 H 06/03/18 16:31: POC Glucose 240 H 06/03/18 19:41: POC Glucose 261 H 06/04/18 06:10: Sodium 146 H, Potassium 3.6, Chloride 106, Carbon Dioxide 31, Anion Gap 12.6, BUN 65 H, Creatinine 2.51 H, Estimated Creat Clear 39, Estimated GFR 25 L, Est GFR ( Amer) 30 L, Glucose 218 H, Calcium 9.3 06/04/18 06:10: WBC 6.5, RBC 3.57 L, Hgb 10.5 L, Hct 31.6 L, MCV 88.8, MCH 29.4, MCHC 33.1, RDW 12.7, Plt Count 218, MPV 9.2, Neut % (Auto) 89.0 H, Lymph % (Auto) 7.8 L, [place] % (Auto) 3.1, Eos % (Auto) 0.1, Baso % (Auto) 0.1, Neut # (Auto) 5.8, Lymph # (Auto) 0.5 L, [place] # (Auto) 0.2, Eos # (Auto) 0.0, Baso # (Auto) 0.0 06/04/18 06:39: POC Glucose 221 H I & O for Last 24 hours: Intake & Output 06/01/18 06/02/18 06/03/18 06/04/18 11:59 11:59 11:59 11:59 Intake Total 494 / 494 814 / 814 630 / 630 Output Total 800 / 800 980 / 980 700 / 700 Balance -306 / -306 -166 / -166 -70 / -70 Weight 260 lb 256 lb 4 oz 255 lb 3 oz 257 lb 2 oz Microbiology Reports for the Last 24 Hours: Microbiology 06/01/18 09:00 Blood Blood Culture - Preliminary NO GROWTH AFTER 48 HOURS 06/01/18 09:07 Blood Blood Culture - Preliminary NO GROWTH AFTER 48 HOURS 06/02/18 17:56 Sputum - Expectorated Sputum Gram Stain - Final 06/02/18 17:56 Sputum - Expectorated Sputum Sputum Culture - Preliminary Narrative: Patient looks more comfortable this morning. Lung exam reveals improved aeration in all lung sandra with only faint rales at the base on the left and right. Heart has a regular rate and rhythm Assessment and Plan (1) Diastolic CHF, acute on chronic Current visit: No Status: Acute Category: Medical Code(s): I50.33 - Acute on chronic diastolic (congestive) heart failure (2) COPD (chronic obstructive pulmonary disease) Current visit: No Status: Acute Qualifiers: COPD type: unspecified COPD Qualified Code(s): J44.9 - Chronic obstructive pulmonary disease, unspecified Category: Medical Code(s): J44.9 - Chronic obstructive pulmonary disease, unspecified (3) Left lower lobe pneumonia Current visit: No Status: Suspected Category: Medical Code(s): J18.1 - Lobar pneumonia, unspecified organism (4) Chronic kidney disease, stage 4 (severe) Current visit: No Status: Chronic Category: Medical Code(s): N18.4 - Chronic kidney disease, stage 4 (severe) (5) Coronary arteriosclerosis Current visit: No Status: Chronic Category: Medical Code(s): I25.10 - Atherosclerotic heart disease of [place] coronary artery without angina pectoris (6) Diabetes mellitus Current visit: No Status: Chronic Qualifiers: Diabetes mellitus type: type 2 Diabetes mellitus fdc insulin use: without salvage determiner use Diabetes mellitus complication status: without complication Qualified Code(s): E11.9 - Type 2 diabetes mellitus without complications Category: Medical Code(s): E11.9 - Type 2 diabetes mellitus without complications (7) Hypertensive heart disease Current visit: No Status: Chronic Qualifiers: Heart failure presence: without heart failure Qualified Code(s): I11.9 - Hypertensive heart disease without heart failure Category: Medical Code(s): I11.9 - Hypertensive heart disease without heart failure (8) ILYA (renal artery stenosis) Current visit: No Status: Chronic Category: Medical Code(s): I70.1 - Atherosclerosis of renal artery (9) Anemia of chronic disease Current visit: Yes Status: Acute Category: Medical Code(s): D63.8 - Anemia in other chronic diseases classified elsewhere - Assessment and plan all Dx Assessment and Plan for all problems:: 1. Continue current care, get PT consult today and add incentive spirometry
[2018-06-04 08:17] LABS: Lymphocytes % 6 % (10-50); Monocytes % 3 % (2-9); Neutrophils % 91 % (42-76); Total Cells Counted 100
[2018-06-04 08:18] LABS: RBC Morphology Normal
[2018-06-05 06:59] LABS: Eosinophils % 0.1 % (0.1-12.0); Lymphocytes # 0.8 K/mm3 (0.7-4.5); Lymphocytes % 9.3 % (10-50); Mean Corpuscular HGB Conc 32.3 g/dL (31.8-35.4); Mean Corpuscular Hemoglobin 28.9 pg (27.0-31.2); Mean Corpuscular Volume 89.4 fl (80-94); Mean Platelet Volume 9.1 fl (7.4-10.4); Monocytes # 0.4 K/mm3 (0.1-1.0); Neutrophils # 7.4 K/mm3 (1.8-7.8); Neutrophils % 85.6 % (37.0-80.0); Platelet Count 226 K/mm3 (142-424); Red Blood Count 3.47 M/mm3 (4.60-6.20); Red Cell Distribution Width 12.8 % (11.5-17.5); White Blood Count 8.6 K/mm3 (4.8-10.8)
[2018-06-05 07:06] LABS: Anion Gap 9.7 mEq/L (5-15); Calcium 9.3 mg/dL (8.5-10.1); Potassium 3.7 mmoL/L (3.5-5.1)
--- NOTE | 2018-06-05 07:15 | Progress Note ---
Internal Medicine - PN: Subj *Date: 06/05/18 *Time: 07:12 Interval history: Patient continues to have shortness of breath he though he is not clear when answering how close he is to baseline. He is minimally ambulatory at home. He apparently did well with physical therapy yesterday and was only limited by his dyspnea. With a long conversation about disposition. It seems what is important to the patient is having someone to help bathe him. Exam Vital signs and Labs for Last 24 Hours: Temp Pulse Resp BP Pulse Ox 98.7 F 71 18 163/83 H 95 06/05/18 04:00 06/05/18 06:01 06/05/18 04:00 06/05/18 04:00 06/05/18 06:01 Laboratory Results - last 24 hr 06/04/18 06:10: Total Counted 100, Neutrophils % (Manual) 91 H, Lymphocytes % (Manual) 6 L, Monocytes % (Manual) 3, Platelet Estimate Normal, RBC Morphology Normal 06/04/18 11:14: POC Glucose 179 H 06/04/18 16:18: POC Glucose 241 H 06/04/18 21:04: POC Glucose 220 H 06/05/18 06:25: WBC 8.6 D, RBC 3.47 L, Hgb 10.0 L, Hct 31.0 L, MCV 89.4, MCH 28.9, MCHC 32.3, RDW 12.8, Plt Count 226, MPV 9.1, Neut % (Auto) 85.6 H, Lymph % (Auto) 9.3 L, [place] % (Auto) 5.0, Eos % (Auto) 0.1, Baso % (Auto) 0.0 L, Neut # (Auto) 7.4, Lymph # (Auto) 0.8, [place] # (Auto) 0.4, Eos # (Auto) 0.0, Baso # (Auto) 0.0 I & O for Last 24 hours: Intake & Output 06/02/18 06/03/18 06/04/18 06/05/18 11:59 11:59 11:59 11:59 Intake Total 494 / 494 814 / 814 870 / 870 962 / 962 Output Total 800 / 800 980 / 980 700 / 700 1925 / 1925 Balance -306 / -306 -166 / -166 170 / 170 -963 / -963 Weight 256 lb 4 oz 255 lb 3 oz 257 lb 2 oz 256 lb 6 oz Microbiology Reports for the Last 24 Hours: Microbiology 06/02/18 17:56 Sputum - Expectorated Sputum Gram Stain - Final 06/02/18 17:56 Sputum - Expectorated Sputum Sputum Culture - Final Normal Respiratory Francesca Narrative: He is awake and alert. Lungs have some faint crackles in the left base but no wheezing this morning. Heart has a regular rate and rhythm. Assessment and Plan (1) Diastolic CHF, acute on chronic Current visit: No Status: Acute Category: Medical Code(s): I50.33 - Acute on chronic diastolic (congestive) heart failure (2) COPD (chronic obstructive pulmonary disease) Current visit: No Status: Acute Qualifiers: COPD type: unspecified COPD Qualified Code(s): J44.9 - Chronic obstructive pulmonary disease, unspecified Category: Medical Code(s): J44.9 - Chronic obstructive pulmonary disease, unspecified (3) Left lower lobe pneumonia Current visit: No Status: Suspected Category: Medical Code(s): J18.1 - Lobar pneumonia, unspecified organism (4) Chronic kidney disease, stage 4 (severe) Current visit: No Status: Chronic Category: Medical Code(s): N18.4 - Chronic kidney disease, stage 4 (severe) (5) Coronary arteriosclerosis Current visit: No Status: Chronic Category: Medical Code(s): I25.10 - Atherosclerotic heart disease of [place] coronary artery without angina pectoris (6) Diabetes mellitus Current visit: No Status: Chronic Qualifiers: Diabetes mellitus type: type 2 Diabetes mellitus jail insulin use: without jail use Diabetes mellitus complication status: without complication Qualified Code(s): E11.9 - Type 2 diabetes mellitus without complications Category: Medical Code(s): E11.9 - Type 2 diabetes mellitus without complications (7) Hypertensive heart disease Current visit: No Status: Chronic Qualifiers: Heart failure presence: without heart failure Qualified Code(s): I11.9 - Hypertensive heart disease without heart failure Category: Medical Code(s): I11.9 - Hypertensive heart disease without heart failure (8) ILYA (renal artery stenosis) Current visit: No Status: Chronic Category: Medical Code(s): I70.1 - Atherosclerosis of renal artery (9) Anemia of chronic disease Current visit: Yes Status: Acute Category: Medical Code(s): D63.8 - Anemia in other chronic diseases classified elsewhere - Assessment and plan all Dx Assessment and Plan for all problems:: 1. Patient is ready for discharge we simply need to decide where he is going to transition to once he leaves the hospital. Care management is working on finding out more information about a program through [facility] navigators to see if that also includes bathing at home. Decision will be made later today . Alternative is [facility]
[2018-06-05 10:37] LABS: Lymphocytes % 9 % (10-50); Monocytes % 5 % (2-9); Neutrophils % 86 % (42-76); RBC Morphology Normal; Total Cells Counted 100
[2018-06-06 07:27] LABS: Basophils % 0.1 % (0.1-2.0); Eosinophils % 0.1 % (0.1-12.0); Hematocrit 32.9 % (42.0-52.0); Hemoglobin 10.8 g/dL (14.1-18.0); Lymphocytes # 0.5 K/mm3 (0.7-4.5); Lymphocytes % 6.4 % (10-50); Mean Corpuscular HGB Conc 32.8 g/dL (31.8-35.4); Mean Corpuscular Hemoglobin 29.3 pg (27.0-31.2); Mean Corpuscular Volume 89.5 fl (80-94); Mean Platelet Volume 8.8 fl (7.4-10.4); Monocytes # 0.4 K/mm3 (0.1-1.0); Monocytes % 4.2 % (1.7-9.3); Neutrophils # 7.7 K/mm3 (1.8-7.8); Neutrophils % 89.3 % (37.0-80.0); Platelet Count 231 K/mm3 (142-424); Red Blood Count 3.68 M/mm3 (4.60-6.20); Red Cell Distribution Width 12.9 % (11.5-17.5); White Blood Count 8.6 K/mm3 (4.8-10.8)
[2018-06-06 07:30] LABS: Anion Gap 10.9 mEq/L (5-15); Calcium 9.4 mg/dL (8.5-10.1); Potassium 3.9 mmoL/L (3.5-5.1)
--- NOTE | 2018-06-06 07:52 | Progress Note ---
Internal Medicine - PN: Subj *Date: 06/06/18 *Time: 07:50 Interval history: Patient has no new complaints this morning. He slept well and believes this may have been because he received his Xanax. He has no new complaints Exam Vital signs and Labs for Last 24 Hours: Temp Pulse Resp BP Pulse Ox 98.7 F 66 18 169/92 H 94 L 06/06/18 04:00 06/06/18 06:06 06/06/18 04:00 06/06/18 04:00 06/06/18 06:06 Laboratory Results - last 24 hr 06/05/18 06:25: Total Counted 100, Neutrophils % (Manual) 86 H, Lymphocytes % (Manual) 9 L, Monocytes % (Manual) 5, Platelet Estimate Normal, RBC Morphology Normal 06/05/18 06:43: POC Glucose 192 H 06/05/18 11:01: POC Glucose 176 H 06/05/18 16:11: POC Glucose 181 H 06/05/18 20:04: POC Glucose 317 H* 06/06/18 06:29: POC Glucose 205 H 06/06/18 06:45: Sodium 144, Potassium 3.9, Chloride 105, Carbon Dioxide 32, Anion Gap 10.9, BUN 71 H, Creatinine 2.25 H, Estimated Creat Clear 43, Estimated GFR 28 L, Est GFR ( Amer) 34 L, Glucose 208 H, Calcium 9.4 06/06/18 06:45: WBC 8.6, RBC 3.68 L, Hgb 10.8 L, Hct 32.9 L, MCV 89.5, MCH 29.3, MCHC 32.8, RDW 12.9, Plt Count 231, MPV 8.8, Neut % (Auto) 89.3 H, Lymph % (Auto) 6.4 L, [place] % (Auto) 4.2, Eos % (Auto) 0.1, Baso % (Auto) 0.1, Neut # (Auto) 7.7, Lymph # (Auto) 0.5 L, [place] # (Auto) 0.4, Eos # (Auto) 0.0, Baso # (Auto) 0.0 I & O for Last 24 hours: Intake & Output 06/03/18 06/04/18 06/05/18 06/06/18 11:59 11:59 11:59 11:59 Intake Total 814 / 814 870 / 870 1262 / 1262 690 / 690 Output Total 980 / 980 700 / 700 2125 / 2125 1625 / 1625 Balance -166 / -166 170 / 170 -863 / -863 -935 / -935 Weight 255 lb 3 oz 257 lb 2 oz 256 lb 6 oz 254 lb 3 oz Narrative: Patient is awake and alert. He appears comfortable in no distress. Nasal cannula is in place. Lung exam reveals crackles at the left lung base only. There is no wheezing. Heart has a regular rate and rhythm Assessment and Plan (1) Diastolic CHF, acute on chronic Current visit: No Status: Acute Category: Medical Code(s): I50.33 - Acute on chronic diastolic (congestive) heart failure (2) COPD (chronic obstructive pulmonary disease) Current visit: No Status: Acute Qualifiers: COPD type: unspecified COPD Qualified Code(s): J44.9 - Chronic obstructive pulmonary disease, unspecified Category: Medical Code(s): J44.9 - Chronic obstructive pulmonary disease, unspecified (3) Left lower lobe pneumonia Current visit: No Status: Suspected Category: Medical Code(s): J18.1 - Lobar pneumonia, unspecified organism (4) Chronic kidney disease, stage 4 (severe) Current visit: No Status: Chronic Category: Medical Code(s): N18.4 - Chronic kidney disease, stage 4 (severe) (5) Coronary arteriosclerosis Current visit: No Status: Chronic Category: Medical Code(s): I25.10 - Atherosclerotic heart disease of [place] coronary artery without angina pectoris (6) Diabetes mellitus Current visit: No Status: Chronic Qualifiers: Diabetes mellitus type: type 2 Diabetes mellitus halfway insulin use: without marine oil 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 use Diabetes mellitus complication status: without complication Qualified Code(s): E11.9 - Type 2 diabetes mellitus without complications Category: Medical Code(s): E11.9 - Type 2 diabetes mellitus without complications (7) Hypertensive heart disease Current visit: No Status: Chronic Qualifiers: Heart failure presence: without heart failure Qualified Code(s): I11.9 - Hypertensive heart disease without heart failure Category: Medical Code(s): I11.9 - Hypertensive heart disease without heart failure (8) ILYA (renal artery stenosis) Current visit: No Status: Chronic Category: Medical Code(s): I70.1 - Atherosclerosis of renal artery (9) Anemia of chronic disease Current visit: Yes Status: Acute Category: Medical Code(s): D63.8 - Anemia in other chronic diseases classified elsewhere - Assessment and plan all Dx Assessment and Plan for all problems:: Patient will discharge to [facility] today to complete a course of antibiotics and receive physical therapy before transitioning back to home
--- NOTE | 2018-06-06 07:55 | Discharge Summary ---
General - General Admission date:: 06/01/18 Discharge date: 06/06/18 HPI HPI: 77-year-old male with coronary artery disease, chronic kidney disease, chronic lung disease presented to the emergency department after a fall overnight. Over the last week patient has had medication adjustments to try to aid with diuresis as he felt like he was carrying around more fluids. Over the last 2-3 days the patient has felt increasingly weak and has noted lightheadedness upon standing. He became lightheaded overnight while trying to go to the bathroom and fell. This morning he persistently felt short of breath as well as weak and decision was made to come to the emergency department. In the ER workup was begun. Patient did not have any hypoxia. Chest x-ray was suggestive of mild fluid overload and he had an elevated BNP as well as a troponin of 0.08. Patient denied chest pain in the emergency department and continues to deny chest pain. Decision was made to admit the patient for exacerbation of congestive heart failure. Patient does have a normal ejection fraction of 55% on last echocardiogram in January. It is felt that he has some diastolic dysfunction. Since admission patient states he has urinated 3 times although at present this is not being measured. Hospital Course Hospital Course: Please see details of hospitalization under his problem list and diagnoses Objective Vital signs: Temp Pulse Resp BP Pulse Ox 98.7 F 66 18 169/92 H 94 L 06/06/18 04:00 06/06/18 06:06 06/06/18 04:00 06/06/18 04:00 06/06/18 06:06 no acute distress - *Routine Respiratory Exam Present: crackles (Left lung base). Absent: respiratory distress, rhonchi, wheezes - *Routine Abdominal Exam Present: soft, normoactive bowel sounds. Absent: tenderness, distended - *Routine Extremities Exam Present: edema. Absent: cyanosis, clubbing Results Labs on day of discharge: Labs from last 24 hours 06/06/18 06/06/18 06/06/18 06:45 06:45 06:29 WBC 8.6 RBC 3.68 L Hgb 10.8 L Hct 32.9 L MCV 89.5 MCH 29.3 MCHC 32.8 RDW 12.9 Plt Count 231 MPV 8.8 Neut % (Auto) 89.3 H Lymph % (Auto) 6.4 L [place] % (Auto) 4.2 Eos % (Auto) 0.1 Baso % (Auto) 0.1 Neut # (Auto) 7.7 Lymph # (Auto) 0.5 L [place] # (Auto) 0.4 Eos # (Auto) 0.0 Baso # (Auto) 0.0 Total Counted Neutrophils % (Manual) Lymphocytes % (Manual) Monocytes % (Manual) Platelet Estimate RBC Morphology Sodium 144 Potassium 3.9 Chloride 105 Carbon Dioxide 32 Anion Gap 10.9 BUN 71 H Creatinine 2.25 H Estimated Creat Clear 43 Estimated GFR 28 L Est GFR ( Amer) 34 L Glucose 208 H POC Glucose 205 H Calcium 9.4 06/05/18 06/05/18 06/05/18 20:04 16:11 11:01 WBC RBC Hgb Hct MCV MCH MCHC RDW Plt Count MPV Neut % (Auto) Lymph % (Auto) [place] % (Auto) Eos % (Auto) Baso % (Auto) Neut # (Auto) Lymph # (Auto) [place] # (Auto) Eos # (Auto) Baso # (Auto) Total Counted Neutrophils % (Manual) Lymphocytes % (Manual) Monocytes % (Manual) Platelet Estimate RBC Morphology Sodium Potassium Chloride Carbon Dioxide Anion Gap BUN Creatinine Estimated Creat Clear Estimated GFR Est GFR ( Amer) Glucose POC Glucose 317 H* 181 H 176 H Calcium 06/05/18 06/05/18 06:43 06:25 WBC RBC Hgb Hct MCV MCH MCHC RDW Plt Count MPV Neut % (Auto) Lymph % (Auto) [place] % (Auto) Eos % (Auto) Baso % (Auto) Neut # (Auto) Lymph # (Auto) [place] # (Auto) Eos # (Auto) Baso # (Auto) Total Counted 100 Neutrophils % (Manual) 86 H Lymphocytes % (Manual) 9 L Monocytes % (Manual) 5 Platelet Estimate Normal RBC Morphology Normal Sodium Potassium Chloride Carbon Dioxide Anion Gap BUN Creatinine Estimated Creat Clear Estimated GFR Est GFR ( Amer) Glucose POC Glucose 192 H Calcium Preliminary micro results at discharge 06/01/18 09:00 Blood Culture - Preliminary Blood NO GROWTH AFTER 48 HOURS 06/01/18 09:07 Blood Culture - Preliminary Blood NO GROWTH AFTER 48 HOURS DS: Diagnosis - Discharge Diagnosis (1) Diastolic CHF, acute on chronic Status: Acute Problem details: On admission patient given Lasix 40 mg intravenously twice daily which he remained on for the remainder of hospitalization. Patient had daily I's and O's monitored and remained in nega tive fluid balance. On admission patient had bilateral rales and at discharge patient had crackles in the left base which I believe were due to overlying pneumonia. Continue Lasix 40 mg twice daily by mouth at discharge (2) COPD (chronic obstructive pulmonary disease) Status: Acute Problem details: Patient has underlying COPD which became symptomatic during hospitalization with expiratory wheezes. Steroids were added along with duo nebs. Patient will continue his home use of inhalers at discharge to [facility]. He will also be ordered steroids which will require weaning (3) Left lower lobe pneumonia Status: Suspected Problem details: Patient was placed on Levaquin when chest x-ray and exam supported additional diagnosis of left lower lobe pneumonia. He will finish a course of Levaquin (4) Chronic kidney disease, stage 4 (severe) Status: Chronic Problem details: This remained stable throughout hospitalization with no significant change in creatinine (5) Coronary arteriosclerosis Status: Chronic (6) Diabetes mellitus Status: Chronic Problem details: Blood sugars remained stable throughout hospitalization. He was covered with sliding scale insulin while hospitalized (7) Hypertensive heart disease Status: Chronic Problem details: Patient's blood pressures were elevated during hospitalization and will need adjustment of blood pressure medications (8) ILYA (renal artery stenosis) Status: Chronic (9) Anemia of chronic disease Status: Acute Problem details: Anemia remained stable during hospitalization (10) Fall at home Status: Acute Problem details: Patient had a head 2 falls prior to hospitalization. While hospitalized PT was consulted and began working with the patient. It was felt he would benefit from additional physical therapy at a [facility] facility and at discharge was transferred to [facility] to continue PT for increasing activity and endurance Discharge Plan - Patient Discharge Instructions ACTIVITY: Continue current activity DIET: low fat, low cholesterol Patient Instructions: Pneumonia-Adult, Kidney Failure, Chronic Obstructive Pulmonary Disease, Heart Failure, Anemia, DI for Heart Failure, DI for Diabetes Type 1 -- Adult - Follow up Plan Disposition: er [facility] Home Medications: Home Medications Medication Instructions Recorded Confirmed Type carvedilol 12.5 mg tablet 12.5 mg PO BID 03/12/17 06/01/18 History febuxostat 40 mg tablet 40 mg PO DAILY 03/12/17 06/01/18 History ferrous sulfate 325 mg (65 mg 325 mg PO TID 03/12/17 06/01/18 History iron) tablet glimepiride 4 mg tablet 4 mg PO DAILY 03/12/17 06/01/18 History isosorbide mononitrate ER 30 mg 30 mg PO DAILY 03/12/17 06/01/18 History tablet,extended release 24 hr Amlodipine Besylate [Amlodipine 10 mg PO DAILY 01/28/18 06/01/18 History 10mg Tab] Atorvastatin Calcium [Atorvastatin 40 mg PO DAILY 01/28/18 06/01/18 History 40mg Tab] Pantoprazole Sodium [Protonix 40mg 40 mg PO DAILY 01/28/18 06/01/18 History tablet] Albuterol Sulfate [Albuterol 2.5 mg IH Q4HP PRN #25 neb 02/28/18 06/01/18 Rx Sulfate 2.5mg/0.5ml Neb] apixaban 2.5 mg tablet 2.5 mg PO BID 03/19/18 06/01/18 History furosemide 40 mg tablet 40 mg PO BID #60 tab 03/19/18 06/01/18 Rx Clopidogrel Bisulfate [Plavix 75mg 75 mg PO DAILY 06/01/18 06/01/18 History Tab] Multivitamin with Minerals [Men's 1 each PO DAILY 06/01/18 06/01/18 History One Daily] Zolpidem Tartrate [Ambien 10mg 10 mg PO HSP PRN 06/01/18 06/01/18 History tablet] ALPRAZolam [Alprazolam Odt] 1 mg PO TIDP PRN #90 tab 06/06/18 Rx Isosorbide Mononitrate [Imdur 60mg 0 mg PO DAILY #30 tab.er.24h 06/06/18 Rx ER tablet] levoFLOXacin [Levaquin 750mg 750 mg PO Q48H #4 tab 06/06/18 Rx tablet] predniSONE [Deltasone 10mg tablet] 10 mg PO DAILY 7 Days #7 tab 06/06/18 Rx Prescriptions/Medication Reconciliation: New Ferrous Sulfate [Ferrous Sulfate 325mg Tablet] 325 mg PO HS tablet Ipratropium/Albuterol Sulfate [Duoneb 3mL neb] 3 ml IH QIDRT ampul.neb levoFLOXacin [Levaquin 750mg tablet] 750 mg PO Q48H #4 tab predniSONE [Deltasone 10mg tablet] 10 mg PO DAILY 7 Days #7 tab Isosorbide Mononitrate [Imdur 60mg ER tablet] 0 mg PO DAILY #30 tab.er.24h Continue carvedilol 12.5 mg tablet 12.5 mg PO BID glimepiride 4 mg tablet 4 mg PO DAILY febuxostat 40 mg tablet 40 mg PO DAILY apixaban 2.5 mg tablet 2.5 mg PO BID furosemide 40 mg tablet 40 mg PO BID #60 tab Pantoprazole Sodium [Protonix 40mg tablet] 40 mg PO DAILY Multivitamin with Minerals [Men's One Daily] 1 each PO DAILY Amlodipine Besylate [Amlodipine 10mg Tab] 10 mg PO DAILY Atorvastatin Calcium [Atorvastatin 40mg Tab] 40 mg PO DAILY Albuterol Sulfate [Albuterol Sulfate 2.5mg/0.5ml Neb] 2.5 mg IH Q4HP PRN #25 neb PRN Reason: Shortness Of Breath Or Wheezing Clopidogrel Bisulfate [Plavix 75mg Tab] 75 mg PO DAILY ALPRAZolam [Alprazolam Odt] 1 mg PO TIDP PRN #90 tab PRN Reason: Anxiety Discontinued ferrous sulfate 325 mg (65 mg iron) tablet 325 mg PO TID isosorbide mononitrate ER 30 mg tablet,extended release 24 hr 30 mg PO DAILY Zolpidem Tartrate [Ambien 10mg tablet] 10 mg PO HSP PRN PRN Reason: Insomnia
[2018-06-06 09:15] LABS: Lymphocytes % 5 % (10-50); Monocytes % 4 % (2-9); Neutrophils % 91 % (42-76); RBC Morphology Normal; Total Cells Counted 100
== END 2018-06-06 16:47 | DRG 291 ==
LOC: ER 08:27 → 2ND 08:27 → OBSVTOIN 10:47 → 2ND 11:55
PROVIDERS: ADMIT Family Medicine; ATTEND Family Medicine
CPT/HCPCS: 36415; 71010; 71020; 71045; 71046; 80048; 80053; 82962; 83605; 83880; 84484; 85007; 85025; 85378; 87040; 87070; 87205; 93005; 93041; 94640; 94761; 96374; 96375; 97110; 97116; 97163; 97530; 99285; J1956

== ENCOUNTER → 2020-01-07 18:57 | Outpatient (CLI) | payer MEDICARE, BC, SELFPAY | PROVIDERS: Visit Provider Nurse Practitioner | DX: L60.0 Ingrowing nail (principal) | CPT/HCPCS: 87070; 87077; 87186; 87205 ==

== ENCOUNTER → 2022-01-10 10:15 | Outpatient (CLI) | payer MEDICARE, BC, SELFPAY | PROVIDERS: Visit Provider Nurse Practitioner Family | DX: S91.102A Unspecified open wound of left great toe without damage to nail, initial encounter; E11.621 Type 2 diabetes mellitus with foot ulcer; B95.7 Other staphylococcus as the cause of diseases classified elsewhere | CPT/HCPCS: 87070; 87077; 87186; 87205 ==

== ENCOUNTER 2022-09-18 06:26 | Emergency (ER) | payer MEDICARE, BC, SELFPAY ==
[2022-09-18] VITALS (8 sets, daily range): BP systolic 165–188; BP diastolic 45–85; PULSE 65–82; RESP 18–24; TEMP 36.5; O2SAT 94–100; BMI 29.9
--- NOTE | 2022-09-18 06:29 | ECG_ITS ---
APPROVED REPORT Exam: Resting ECG HR:78 bpm ECG Measurements Heart Rate 78 AXES QRSd 162 QRS -59 QT 407 T 70 QTc 440 Conclusion ATRIAL FIBRILLATION RIGHT BUNDLE BRANCH BLOCK [120+ ms QRS DURATION, UPRIGHT V1, 40+ ms S IN I/aVL/V4/V5/V6] LEFT ANTERIOR FASCICULAR BLOCK [QRS AXIS <= -45, QR IN I, RS IN II] ABNORMAL ECG UNCONFIRMED REPORT Electronically signed by : Vasile Potter MD 09/18/2022 17:57:25
--- NOTE | 2022-09-18 06:30 | XR_ITS ---
PROCEDURE INFORMATION: Exam: XR Chest Exam date and time: 09/18/2022 6:51 AM Age: 82 years old Clinical indication: Shortness of breath; Additional info: SOA TECHNIQUE: Imaging protocol: Radiologic exam of the chest. Views: 1 view. COMPARISON: CR CXR2V XR chest 2V 06/02/2018 6:12 AM FINDINGS: Tubes, catheters and devices: Overlying monitoring leads. Lungs: Bilateral lower lung field hazy opacities. Pleural spaces: Minimal left pleural thickening. Heart/Mediastinum: Cardiac silhouette remains enlarged. Vasculature: Aortic arch calcification and aortic tortuosity. Bones/joints: Sternotomy wires. IMPRESSION: 1. Bilateral lower lung field opacities. Consider atelectasis or early pneumonia. 2. Suspect small left pleural fluid.
--- NOTE | 2022-09-18 06:35 | HMH.EDGENADL ---
Discharge Plan Disposition Patient Disposition: Home, Self-Care Chief Complaint: Shortness of Breath/Dyspnea Prescriptions Prescriptions: No Action carvedilol [Coreg] 12.5 mg tablet 12.5 mg PO BID glimepiride 4 mg tablet 4 mg PO DAILY febuxostat [Uloric] 40 mg tablet 40 mg PO DAILY furosemide 40 mg tablet 40 mg PO BID Qty: 60 5RF mupirocin 2 % ointment 1 applic TOPICAL BID Qty: 15 0RF Xarelto 15 mg tablet 15 mg PO alprazolam 1 mg tablet 1 mg PO potassium chloride 20 mEq tablet,ER particles/crystals PO urea 40 % cream 1 applic topical BID Qty: 28 3RF doxycycline hyclate 100 mg capsule 100 mg PO BID 14 Days Qty: 28 0RF atorvastatin 40 mg tablet 40 mg PO DAILY Qty: 90 3RF amlodipine 10 mg tablet 10 mg PO DAILY Qty: 90 3RF Rx Instructions: PATIENT SAYS DR RECENTLY CHANGED THIS TO ONCE A DAY pantoprazole 40 MG tablet,delayed release (DR/EC) 40 mg PO DAILY clopidogrel 75 tablet 75 mg PO DAILY multivitamin with minerals 1 EACH tablet 1 each PO DAILY ferrous sulfate 325 MG tablet 325 mg PO HS 0RF ipratropium-albuterol 3 ML solution for nebulization 3 ml IH QIDRT 0RF isosorbide mononitrate 60 MG tablet extended release 24 hr 0 mg PO DAILY Qty: 30 12RF albuterol sulfate 2.5 MG/0.5 ML solution for nebulization 2.5 mg IH Q4HP PRN (Reason: Shortness Of Breath Or Wheezing) Qty: 25 2RF Referrals Follow up/Referrals: Zara Moore MD [Primary Care Provider] - See instructions Clinical Impressions Clinical Impression: Acute dyspnea Discharge ED Provider: Alfredo Neri General Adult HPI <Cookie Morfin DO - Last Filed: 09/18/22 07:13> General Chief complaint: Shortness of Breath/Dyspnea Stated complaint: SOA Time Seen by Provider: 09/18/22 06:29 Mode of Arrival: EMS Source of Information: Patient Limitations: No Limitations Description of Symptoms (Recalled from ER Triage Doc. by RN): pt states he woke up to used bathroom and became SOA. pt has history of COPD History of Present Illness HPI narrative: This patient is an 82-year-old male with a history of CAD status post stenting, atrial fibrillation, renal artery stenosis with CKD 4 status post stenting, CHF with chronic bilateral lower extremity swelling, COPD, type 2 diabetes, and chronic oxygen dependence on 2 L nasal cannula at home presented to the emergency department for evaluation with concern for shortness of breath. Patient states that yesterday right before he went to bed he was starting to feel little bit more short of breath, a it continued worsening overnight. He woke up this morning to go to the bathroom and noted significant shortness of breath that was worse when he tried to get up and move around. EMS notes that he was hypoxic upon their arrival on his home 2 L nasal cannula, however they note that he had very long tubing that would stretch throughout his entire house. They had him on 4 L nasal cannula, however upon arrival he is satting well on his home 2 L nasal cannula. He states that his legs are always swollen and this has not worsened. He states that he takes Lasix at home and has been compliant with this. He reports use of a blood thinner, though he cannot remember which 1. On medical record review, it appears that the patient takes Plavix and Xarelto. Awaiting verification at this time. He denies use of inhalers at home, though it looks like he has previously been prescribed albuterol. He states that he did have 1 nebulizer treatment at home, as well as 1 with EMS prior to arrival. This somewhat improved his symptoms. Patient denies any fevers, chills, cough, congestion, chest pain, abdominal pain, nausea, vomiting, changes in bowel movements, or other concerns. Related Data Home Medications Medication Instructions Recorded Confirmed carvedilol 12.5 mg tablet (Coreg) 12.5 mg PO BID HEART/BLOOD PRESSURE 03/12/17 07/12/22
--- NOTE | 2022-09-18 06:43 | PC.NURSE ---
Respiratory at bedside at this time.
[2022-09-18 06:45] LABS: Basophils % 0.4 % (0.1-2.0); Eosinophils # 0.4 K/mm3 (0.0-0.4); Eosinophils % 4.5 % (0.1-12.0); Hematocrit 37.5 % (42.0-52.0); Hemoglobin 11.7 g/dL (14.1-18.0); Lymphocytes # 1.2 K/mm3 (0.7-4.5); Lymphocytes % 13.6 % (10-50); Mean Corpuscular HGB Conc 31.2 g/dL (31.8-35.4); Mean Corpuscular Hemoglobin 30.8 pg (27.0-31.2); Mean Corpuscular Volume 98.9 fl (80-94); Mean Platelet Volume 9.6 fl (7.4-10.4); Monocytes # 0.6 K/mm3 (0.1-1.0); Monocytes % 7.3 % (1.7-9.3); Neutrophils # 6.2 K/mm3 (1.8-7.8); Neutrophils % 74.2 % (37.0-80.0); Platelet Count 197 K/mm3 (142-424); Red Blood Count 3.79 M/mm3 (4.60-6.20); Red Cell Distribution Width 13.7 % (11.5-17.5); White Blood Count 8.4 K/mm3 (4.8-10.8)
[2022-09-18 06:53] LABS: Lactic Acid 0.8 mmol/L (0.7-2.1)
[2022-09-18 06:54] LABS: Alanine Aminotransferase 20 U/L (12-78); Albumin Level 3.8 g/dl (3.5-5.0); Alkaline Phosphatase 139 U/L (38-126); Anion Gap 8.3 mEq/L (5-15); Aspartate Amino Transferase 29 U/L (17-59); Bilirubin,Total 0.4 mg/dl (0.2-1.3); Blood Urea Nitrogen 40 mg/dl (9-20); Calcium 9.5 mg/dl (8.4-10.2); Carbon Dioxide 38 mmol/L (22.0-30.0); Chloride 103 mmol/L (98-107); Creatinine Clearance Estimated 33 mL/min (50-200); Estimated Glomerular Filt Rate 24 ml/min (>60); GFR (African American) 29 ML/MIN (>60); Globulin 3.8 g/dL (1.3-3.2); Glucose 117 mg/dl (74-100); Potassium 4.3 mmoL/L (3.5-5.1); Sodium 145 mmol/L (136-145); Total Protein,Serum 7.6 g/dl (6.3-8.2)
[2022-09-18 06:55] LABS: VBG HCO3 31.5 mmol/L (23-30); VBG PH 7.36 mmol/L (7.31-7.41); VBG PO2 37.2 mmol/L (28-40); VBG Total CO2 33.2 mmol/L (23-27)
--- NOTE | 2022-09-18 07:02 | PC.NURSE ---
Dr. Morfin at BS
[2022-09-18 07:06] LABS: NT Pro Brain Natriuretic Pep. 3460 pg/mL (0-450); Troponin I 0.03 ng/ml (0.00-0.034)
[2022-09-18 07:11] LABS: T4 (Thyroxine) 7.8 ug/dl (5.53-11.0)
[2022-09-18 07:24] LABS: Thyroid Stimulating Hormone 2.74 uIU/mL (0.465-4.68)
[2022-09-18 07:29] LABS: Procalcitonin 0.062 ng/mL (0.0-2.0)
--- NOTE | 2022-09-18 07:51 | PC.NURSE ---
PT REPOSITIONED IN BED, WARM BLANKET PROVIDED. FAMILY AT BEDSIDE
--- NOTE | 2022-09-18 09:25 | PC.NURSE ---
pt urinated per BS, unable to measure r/t mixed with stool. green top tube sent to lab for 2nd troponin at this time.
[2022-09-18 09:54] LABS: Troponin I 0.03 ng/ml (0.00-0.034)
--- NOTE | 2022-09-18 10:47 | PC.NURSE ---
pt calls out reports suddenly feeling more SOA. Pt reports does feel anxious. Pt son at reports he feels like pt is nervous about going home, states he care for pt at home. Pt son reports pt takes xanax 4 times daily and has not had his morning medications
--- NOTE | 2022-09-18 11:12 | PC.NURSE ---
pt son is concerned about taking pt home. Reports he feels like pt needs to stay in the hospital at least over night to get better, reports he is concerned pt is going to use more of his nebulizer treatments than prescribed r/t SOA and the prescription will run out. Notified ER MD of concerns noted by son, ER MD reports he will be in room to speak with pt and son
--- NOTE | 2022-09-18 11:20 | PC.NURSE ---
ER MD Neri at
--- NOTE | 2022-09-18 11:23 | PC.NURSE ---
ER MD Neri speaking with Dr. More
--- NOTE | 2022-09-18 11:27 | PC.NURSE ---
patient assisted to bedside commode
== END 2022-09-18 12:00 | disposition home or self-care (01) ==
PROVIDERS: Emergency Medicine; Emergency Provider Emergency Medicine; PCP Family Medicine
DX: R06.02 Shortness of breath (principal); E11.22 Type 2 diabetes mellitus with diabetic chronic kidney disease; J44.9 Chronic obstructive pulmonary disease, unspecified; I13.0 Hypertensive heart and chronic kidney disease with heart failure and stage 1 through stage 4 chronic kidney disease, or unspecified chronic kidney disease; I50.9 Heart failure, unspecified; N18.4 Chronic kidney disease, stage 4 (severe); I25.10 Atherosclerotic heart disease of native coronary artery without angina pectoris; I48.91 Unspecified atrial fibrillation; I70.1 Atherosclerosis of renal artery; Z79.01 Long term (current) use of anticoagulants; Z79.02 Long term (current) use of antithrombotics/antiplatelets
CPT/HCPCS: 71045; 80053; 82803; 83605; 83880; 84145; 84436; 84443; 84484; 85025; 93005; 96374; 99291

== ENCOUNTER 2024-05-03 16:31 | Emergency (ER) | payer OTHER, SELFPAY ==
[2024-05-03 16:31] VITALS: BP 134/73; BP 136/59; PULSE 73; RESP 16; RESP 18; TEMP 36.6; O2SAT 95; O2SAT 96; BMI 32.1
--- NOTE | 2024-05-03 16:31 | PC.NURSE ---
DR WALL AT BEDSIDE
--- NOTE | 2024-05-03 16:32 | ECG_ITS ---
APPROVED REPORT Exam: Resting ECG HR:72 bpm ECG Measurements Heart Rate 72 AXES QRSd 150 QRS -60 QT 405 T 39 QTc 430 Conclusion ATRIAL FIBRILLATION LEFT AXIS DEVIATION [QRS AXIS < -30] RIGHT BUNDLE BRANCH BLOCK [120+ ms QRS DURATION, UPRIGHT V1, 40+ ms S IN I/aVL/V4/V5/V6] ABNORMAL ECG UNCONFIRMED REPORT Electronically signed by : Naresh Millan, 05/03/2024 17:57:33
--- NOTE | 2024-05-03 16:36 | XR_ITS ---
PROCEDURE INFORMATION: Exam: XR Chest Exam date and time: 05/03/2024 4:46 PM Age: 83 years old Clinical indication: Other: Weakness TECHNIQUE: Imaging protocol: Radiologic exam of the chest. Views: 1 view. COMPARISON: CR XR CHEST PORTABLE 09/18/2022 6:51 AM FINDINGS: Lungs: There is moderate elevation of the left hemidiaphragm, mildly increased.Lung volumes are mildly diminished.Linear opacities in the left lower lobe suggest atelectasis. The lungs appear otherwise clear. No focal areas of consolidation. Pleural spaces: No pleural effusions. Negative for pneumothorax. Heart/Mediastinum: Cardiac silhouette and pulmonary vasculature are within range of normal. Vasculature: The aorta demonstrates moderate atherosclerotic calcification. There is a curvilinear calcification along the right lateral parasagittal mediastinum which is present on prior exam and likely reflects the silhouette of the ascending thoracic aorta. Can not exclude mild ectasia. Bones/joints: Sternal suture wires are in place suggesting prior median sternotomy and postoperative changes are present involving the mediastinum. There is no evidence of acute fracture. IMPRESSION: 1. Curvilinear calcification along the right lateral parasagittal mediastinum which is present on prior exam and likely reflects the silhouette of the ascending thoracic aorta. Cannot exclude ectasia. 2. Moderate elevation of the left hemidiaphragm, mildly increased, with mild streaky left lower lobe opacities suggestive of atelectasis.
--- NOTE | 2024-05-03 16:39 | ED_ITS ---
Discharge Plan Disposition Patient Disposition: Home, Self-Care Prescriptions Prescriptions: No Action carvedilol [Coreg] 12.5 mg tablet 12.5 mg PO BID glimepiride 4 mg tablet 4 mg PO DAILY febuxostat [Uloric] 40 mg tablet 40 mg PO DAILY furosemide 40 mg tablet 40 mg PO BID Qty: 60 5RF Xarelto 15 mg tablet 15 mg PO QPMWITHMEAL alprazolam 1 mg tablet 1 mg PO QID potassium chloride 20 mEq tablet,ER particles/crystals 20 meq PO BID prednisone 10 mg tablet 10 mg PO DAILY pantoprazole 40 MG tablet,delayed release (DR/EC) 40 mg PO DAILY clopidogrel 75 tablet 75 mg PO DAILY atorvastatin 40 mg tablet 40 mg PO DAILY ipratropium-albuterol 3 ML solution for nebulization 3 ml inhalation QID isosorbide mononitrate 60 MG tablet extended release 24 hr 60 mg PO DAILY amlodipine 10 mg tablet 10 mg PO DAILY Referrals Follow up/Referrals: Barby Gan APRN [Primary Care Provider] - See instructions Activity Restrictions/Add. Instructions Additional Instructions/Restrictions: Follow-up with primary care doctor. Continue home medications as prescribed. Please return the emerged part with any new, concerning, worsening symptoms. Clinical Impressions Clinical Impression: Generalized weakness, Hyperglycemia Print Language Print Language: [place] Irish Discharge ED Provider: Naresh Millan General Adult HPI General Chief complaint: Weakness Stated complaint: WEAKNESS Time Seen by Provider: 05/03/24 16:35 Mode of Arrival: EMS Source of Information: Patient and EMS Description of Symptoms (Recalled from ER Triage Doc. by RN): Patient with no complaints. EMS states that when they arrived to the house for a lift assist he was weak so they checked his glucose and it was over 500 so they brought him to the ER for further evaluation. Patient is a Hospice patient. History of Present Illness HPI narrative: This is a 83-year-old male with a past medical history of hypertension, COPD, CHF on hospice who presents with generalized weakness. States that he has felt well and went to the bathroom like normal today. He could not get up off the toilet and his son could also not get him up. Called EMS for lift assist and when they checked his glucose it was over 500. He was generally weak and so they brought to the emergency department for further evaluation. Patient denies any current symptoms. Related Data Home Medications ?Medication ?Instructions ?Recorded ?Confirmed carvedilol 12.5 mg tablet (Coreg) 12.5 mg PO BID Hypertension 03/12/17 10/16/23 febuxostat 40 mg tablet (Uloric) 40 mg PO DAILY gout 03/12/17 10/16/23 glimepiride 4 mg tablet 4 mg PO DAILY Diabetes 03/12/17 10/16/23 pantoprazole 40 mg tablet,delayed 40 mg PO DAILY Acid Reflux 01/28/18 10/16/23 release clopidogrel 75 mg tablet 75 mg PO DAILY PLATELET INHIBITOR 06/01/18 10/16/23 alprazolam 1 mg tablet 1 mg PO QID Anxiety 10/06/19 10/16/23 potassium chloride 20 mEq 20 meq PO BID Supplement 10/06/19 10/16/23 tablet,extended release(part/cryst) rivaroxaban 15 mg tablet (Xarelto) 15 mg PO QPMWITHMEAL Blood Thinner 03/29/21 10/16/23 amlodipine 10 mg tablet 10 mg PO DAILY Hypertension 09/18/22 10/16/23 atorvastatin 40 mg tablet 40 mg PO DAILY Cholesterol 09/18/22 10/16/23 ipratropium 0.5 mg-albuterol 3 mg 3 ml inhalation QID Breathing 09/18/22 10/16/23 (2.5 mg base)/3 mL nebulization Problems soln isosorbide mononitrate 60 mg 60 mg PO DAILY Hypertension 09/18/22 10/16/23 tablet,extended release 24 hr prednisone 10 mg tablet 10 mg PO DAILY Breathing problems 01/08/24 01/08/24 Previous Rx's ?Medication ?Instructions ?Recorded furosemide 40 mg tablet 40 mg PO BID Fluid #60 tabs 03/19/18 Allergies Allergy/AdvReac Type Severity Reaction Status Date / Time cefuroxime (From CEFTIN) Allergy Unknown Verified 01/08/24 09:54 vancomycin (VANCOMYCIN) Allergy Unknown Verified 01/08/24 09:54 [facility] Disclaimer: The information contained in this section may have been updated after the patient was seen, as this information can be updated by other users. Medical History Type 2 diabetes mellitus without complication, without long-term current use of insulin Onychomycosis Edema of both lower extremities Anemia of chronic disease Anemia remained stable during hospitalization D-dimer, elevated CHF (congestive heart failure) COPD (chronic obstructive pulmonary disease) Patient has underlying COPD which became symptomatic during hospitalization with expiratory wheezes. Steroids were added along with duo nebs. Patient will continue his home use of inhalers at discharge to [facility]. He will also be ordered steroids which will require weaning Chronic kidney disease, stage 4 (severe) Hypertensive disorder Social History Smoking Status: Unknown if ever smoked second hand exposure: No alcohol intake: never substance use type: denies use current occupational status: retired and disabled Travel in the last 8 weeks: None household members: children housing: house current occupational exposures/hazards: No caffeine: No Have you lived/traveled outside [place] in past 30 days?: No Contact w/someone who lives/traveled outside [place] past 30 days?: No Exposure to someone with infectious disease in past 14 days?: No Do you have a fever (greater than 100.4 F or 38 C)?: No Have you tested positive for COVID-19: No Exposed to someone with COVID-19 in past 14 days?: No Do you have a sore throat?: No Do you have a cough?: No Do you have any weakness?: Yes Do you have any diarrhea?: No Are you experiencing any unusual bleeding?: No Do you have any muscle aches/pain?: No Do you have any abdominal pain?: No Are you experiencing loss of taste or smell?: No Other Medical History Have you received the Flu Vaccine for this season: No Have you received the Pneumonia Vaccine: Yes ROS Obtained: Yes All systems reviewed & no additional complaints except as documented Physical Exam General General appearance: alert, in no apparent distress and obese Comment: Chronically ill Eye Eye exam: Present normal appearance, PERRL and EOMI Respiratory Respiratory exam: Present normal lung sounds bilaterally; Absent respiratory distress Cardiovascular Cardiovascular exam: Present regular rate and normal rhythm Abdominal Exam Abdominal exam: Present soft and distention; Absent tenderness, guarding or rebound Extremities Exam Extremities exam: Present other (Symmetrical, bilateral lower extremity 3+ pitting edema) Neurological Exam Neurological exam: Present alert and oriented X3 Skin Skin exam: Present warm and dry Medical Decision Making Medical Records Medical records reviewed: Yes I reviewed the patient's medical records. Screening: Per USPSTF and CDC recommendations, given the prevalence of disease in our region, it is our hospital?s policy to screen for HIV and viral Hepatitis for all patients aged 18 and over and those with ongoing risk factors. MR Comment: Reviewed emergency department visit from 09/18/2022 notable for patient's past medical history as noted above. [place] Inquiry Pt receiving controlled substance: No Vital Signs: 05/03/24 16:31 05/03/24 16:31 05/03/24 17:01 Temperature 97.9 F Temperature Source Oral Pulse Rate 73 62 Pulse Rate [Radial] 73 Respiratory Rate 16 18 18 Blood Pressure 134/73 130/56 L Blood Pressure [Right Arm] 136/59 L Blood Pressure Mean 82 82 Blood Pressure Mean [Right Arm] 84 Blood Pressure Source [Right Arm] Automatic Cuff Blood Pressure Position [Right Arm] Sitting 02 Sat by Pulse Oximetry 95 96 96 Oxygen Delivery Method Room Air Oxygen Flow Rate (LPM) 05/03/24 17:31 05/03/24 18:00 Temperature Temperature Source Pulse Rate 63 69 Pulse Rate [Radial] Respiratory Rate Blood Pressure 117/46 L 171/75 H Blood Pressure [Right Arm] Blood Pressure Mean Blood Pressure Mean [Right Arm] Blood Pressure Source [Right Arm] Blood Pressure Position [Right Arm] 02 Sat by Pulse Oximetry 96 97 Oxygen Delivery Method Nasal Cannula Room Air Oxygen Flow Rate (LPM) 3.5 Lab Data Lab Results 05/03/24 16:27: WBC 10.2, RBC 3.28 L, Hgb 10.2 L, Hct 32.5 L, MCV 99.1 H, MCH 31.1, MCHC 31.4 L, RDW 14.3, Plt Count 195, MPV 11.7 H, Neut % (Auto) 82.3 H, Lymph % (Auto) 10.9, [place] % (Auto) 5.4, Eos % (Auto) 0.4, Baso % (Auto) 0.2, N eut # (Auto) 8.4 H, Lymph # (Auto) 1.1, [place] # (Auto) 0.6, Eos # (Auto) 0.0, Baso # (Auto) 0.0, Sodium 135 L, Potassium 5.1, Chloride 92 L, Carbon Dioxide 34 H, Anion Gap 14.1, BUN 56 H, Creatinine 3.00 H, Estimated Creat Clear 29, E stimated GFR 20 L, Est GFR ( Amer) 24 L, Glucose 471 H*, Calcium 9.2, Total Bilirubin 0.5, AST 29, ALT 29, Alkaline Phosphatase 108, Total Protein 6.5, Albumin 4.0, Globulin 2.5, Albumin/Globulin Ratio 1.6, HCV Ab MARCY w/Rflx PCR Qn Negative, HIV Ag/Ab Combo Qual Negative 05/03/24 18:12: Urine Color Yellow, Urine Appearance Clear, Urine pH 6.0, Ur Specific [place] 1.015, Urine Protein Trace, Urine Glucose (UA) 3+, Urine Ketones Negative, Urine Blood Negative, Urine Nitrate Negative, Urine Bilirubin Negative, Urine Urobilinogen 0.2, Ur Leukocyte Esterase Negative 05/03/24 16:27 05/03/24 16:27 Orders (Tests/Meds): ORDERS Category Date Time Status Chest XR -- portable [XR chest portable] Stat Exams 05/03/24 16:36 Completed CBC w/Auto Diff [Complete Blood Count Auto Diff] Stat Lab 05/03/24 16:27 Completed CMP [Comprehensive Metabolic Panel] Stat Lab 05/03/24 16:27 Completed HIV Combo Stat Lab 05/03/24 16:27 Completed Hepatitis C Ab Qual. W/ RFX Stat Lab 05/03/24 16:27 Completed Urinalysis and Microscopic Stat Lab 05/03/24 18:12 Results ECG Data Tracing #1: I reviewed this ECG and interpreted as documented below: Atrial fibrillation at a rate of 72, QTc 430, left axis deviation, no STEMI however significantly limited by artifact Medical Decision Narrative: In summary, this 82-year-old male with a past medical history of hypertension, COPD, atrial fibrillation, CHF on hospice presents to the emergency department today with generalized weakness and hyperglycemia. On initial evaluation patient is afebrile, hemodynamically stable, nontoxic-appearing, at his baseline. Differential diagnosis includes but is not limited to electrolyte abnormality, UTI, CHF, hyperglycemia. Based on these concerns, I ordered CBC, CMP, chest x- ray, UA. ECG personally interpreted as noted above. Labs personally reviewed demonstrate chronic anemia with a hemoglobin of 10, creatinine of 3.0 which is not significantly different from the patient's baseline of around 2.8-2.7, BUN of 56 which is similar to baseline as well, glucose of 471, no UTI. XR personally interpreted demonstrates no significant cardiopulmonary pathology. On reassessment patient in stable condition at his baseline mental status. No acute distress. Currently on hospice care. Patient did not want to present to the emergency department in the first place. Considered hospitalization, however patients son at bedside who is his primary cinetechnician and lives with him, comfortable with discharge back to his current setting. Ultimately discharged in stable condition. Critical Care Critical Care Time Critical Care Time: No
--- NOTE | 2024-05-03 16:48 | PC.NURSE ---
XR AT BEDSIDE
[2024-05-03 17:01] VITALS: BP 130/56; PULSE 62; RESP 18; O2SAT 96
[2024-05-03 17:09] LABS: Basophils % 0.2 % (0.1-2.0); Eosinophils % 0.4 % (0.1-12.0); Hematocrit 32.5 % (42.0-52.0); Hemoglobin 10.2 g/dL (14.1-18.0); Lymphocytes # 1.1 K/mm3 (0.7-4.5); Lymphocytes % 10.9 % (10-50); Mean Corpuscular HGB Conc 31.4 g/dL (31.8-35.4); Mean Corpuscular Hemoglobin 31.1 pg (27.0-31.2); Mean Corpuscular Volume 99.1 fl (80-94); Mean Platelet Volume 11.7 fl (7.4-10.4); Monocytes # 0.6 K/mm3 (0.1-1.0); Monocytes % 5.4 % (1.7-9.3); Neutrophils # 8.4 K/mm3 (1.8-7.8); Neutrophils % 82.3 % (37.0-80.0); Platelet Count 195 K/mm3 (142-424); Red Blood Count 3.28 M/mm3 (4.60-6.20); Red Cell Distribution Width 14.3 % (11.5-17.5); White Blood Count 10.2 K/mm3 (4.8-10.8)
[2024-05-03 17:27] LABS: Chloride 92 mmol/L (98-107); Potassium 5.1 mmoL/L (3.5-5.1); Sodium 135 mmol/L (136-145)
[2024-05-03 17:30] LABS: Alanine Aminotransferase 29 U/L (12-78); Albumin/Globulin Ratio 1.6 (1.1-1.8); Alkaline Phosphatase 108 U/L (38-126); Anion Gap 14.1 mEq/L (5-15); Aspartate Amino Transferase 29 U/L (17-59); Bilirubin,Total 0.5 mg/dl (0.2-1.3); Blood Urea Nitrogen 56 mg/dl (9-20); Calcium 9.2 mg/dl (8.4-10.2); Carbon Dioxide 34 mmol/L (22.0-30.0); Creatinine Clearance Estimated 29 mL/min (50-200); Estimated Glomerular Filt Rate 20 ml/min (>60); GFR (African American) 24 ML/MIN (>60); Globulin 2.5 g/dL (1.3-3.2); Total Protein,Serum 6.5 g/dl (6.3-8.2)
[2024-05-03 17:31] VITALS: BP 117/46; PULSE 63; O2SAT 96
[2024-05-03 17:35] LABS: Glucose 471 mg/dl (74-100)
--- NOTE | 2024-05-03 17:44 | PC.NURSE ---
pt son approached nurses station and asked if patient was going to be admitted tonight, RN advised him unsure of as yet due to awaiting test results and MD dispo decision but that since patient is hospice we would try to send him back home tonight. PT son stated well i have things to do how long is this gonna take? RN asked how long his errands would take and he said half an hour. RN advised patient son that he had plenty of time to run his errands and come back. pt son asked should i bring the van or truck back with me? and RN said which ever one is easiest for the patient to use pt son said ugh! well none of them he came up here in an ambulance . RN advised whatever family thought best and patient stormed off and said Nevermind!
[2024-05-03 18:00] VITALS: BP 171/75; PULSE 69; O2SAT 97
[2024-05-03 18:23] LABS: Microscopic, Urine URINE MICROSCOPIC (MICROSCOPIC)
[2024-05-03 18:25] LABS: Appearance,Urine CLEAR (Clear); Bilirubin,Urine Negative (Negative); Blood, Urine Negative (Negative); Color,Urine YELLOW (Yellow); Glucose,Urine (UA) 3+ (Negative); Ketones,Urine Negative (Negative); Leukocyte Esterase,Urine Negative (Negative); Nitrate,Urine Negative (Negative); Protein,Urine TRACE (Negative); Specific Gravity, Urine 1.015 (1.005-1.030); Urobilinogen,Urine 0.2 EU/dl (0.2)
[2024-05-03 18:32] VITALS: BP 171/78; PULSE 71; O2SAT 97
[2024-05-03 18:33] LABS: HIV Combo NEGATIVE (Negative)
[2024-05-03 18:40] LABS: Hepatitis C Ab Qual. W/ RFX NEGATIVE (Negative)
--- NOTE | 2024-05-03 19:00 | PC.NURSE ---
rn went in to room to dc patient and asked how they would prefer to go home. pt and son requested ambulance bc son is unable to get patient into house by himself. pt son will be at home to greet and sign for patient when they arrive
[2024-05-03 19:02] VITALS: BP 171/78; PULSE 79; RESP 20; TEMP 36.8; O2SAT 95
== END 2024-05-03 19:35 | disposition home or self-care (01) ==
PROVIDERS: Emergency Provider Student in an Organized Health Care Education/Training Program; PCP Nurse Practitioner
DX: E11.65 Type 2 diabetes mellitus with hyperglycemia (principal); R53.1 Weakness; I50.9 Heart failure, unspecified; J44.9 Chronic obstructive pulmonary disease, unspecified; I11.9 Hypertensive heart disease without heart failure; N18.4 Chronic kidney disease, stage 4 (severe)
CPT/HCPCS: 71045; 80053; 81001; 85025; 86803; 87389; 93005; 99284

== ENCOUNTER 2024-09-26 17:21 | Emergency (ER) | payer OTHER, MEDICARE, BC, SELFPAY ==
[2024-09-26] VITALS (8 sets, daily range): BP systolic 94–140; BP diastolic 54–94; PULSE 60–71; RESP 17–22; TEMP 36.8; O2SAT 93–100; BMI 29.5
--- OUTSIDE RECORDS SUMMARY | 2024-09-26 17:28 | XMS_ITS ---
Author Name Auto Generated, Auto Generated Organization [facility] Address [address] [place] [address] Phone [phone] Care Team Providers Care Manufacturing Helper Name Role Phone Maria Esther Paris Unavailable [phone] Delta Moore Unavailable [phone] Barby Gan Unavailable Jhony Mccullough Unavailable [phone] Functional Status No Results Mental Status No Results Allergies and Intolerances Name Onset Date Reaction Severity Zinacef (Allergy) SunDec 11 16:35:00 EDT 2023 Ceftin (Allergy) SunDec 11 16:35:00 EDT 2023 vancomycin (Allergy) SunDec 11 16:35:00 EDT 202 4 Encounters Program Name Primary Diagnosis Admission Date/Time Dis charge Date/Time Home-based Hospice Chronic obstructive pulmonary disease, unspecified SunDec 10 20:00:00 EDT 2023 Medications Medication Directions Start Date End Date predniSONE 10 mg tablet 0.5 Tablet Oral 1 Time Daily for 7 Days Indication: soa decrease to 5 mg for 1 week then stop SunSep 17 00:00:00 EDT 2024Sep 23 23:59:00 EDT 2024 glimepiride 4 mg tablet 1 Tablet Oral 2 Times Daily Indication: hyperglycemia SunSep 04 00:00:00 EDT 2024 metOLazone 2.5 mg tablet 1 Tablet Oral E very Morning Indication: edema, e3very am with the lasix SunMay 30 00:00:00 EDT 2024 Pradaxa 75 mg capsule 1 Capsule Oral 2 T imes Daily Indication: heart disease, atrial fib SunMay 21 00:00:00 EDT 2024May 21 09:12:00 EDT 2024 Pradaxa 75 mg capsule 1 Capsule Oral 2 T imes Daily Indication: heart disease, atrial fib will start when xarelto finished SunMay 21 00:00:00 EDT 2024 albuterol sulfate 1.25 mg/3 mL solution for nebulization 3 Milliliter Inhalation PRN Every 4 Hours Indication: soa congestion SunApr 02 00:00:00 EST 2024 morphine concentrate 100 mg/5 mL (20 mg/mL) oral solution 0.25 Milliliter Oral PRN Every 6 Hours Indication: pain/soa [5 mg] SunMar 19 00:00:00 EST 2024 Senna Laxative-Stool Softener 8.6 mg-50 mg tablet 2 Tablet Oral PRN 1 Time Daily Indication: constipation[ 1-2 tablets if needed] SunMar 19 00:00:00 EST 2024 Fluzone High-Dose Triv (PF) 180 mcg/0.5 mL IM syringe 0.5 Milliliter Intramuscular 1 Time Daily for 1 Day Indication: has flu shot at dr's office SunJan 07 00:00:00 EST 2023Jan 08 23:59:00 EST 2023 predniSONE 10 mg tablet 1 Tablet Oral 1 Time Daily Indication: soa SunDec 25 00:00:00 EDT 2023Sep 17 09:02:00 EDT 2024 Tylenol Extra Strength 500 mg tablet 1 Tablet Oral PRN Every 6 Hours Indication: pain SunDec 18 00:00:00 EDT 2023 Saline Mist 0.65 % nasal spray aerosol 1 Inhalation Intranasal PRN 4 Times Daily Indication: nasal congestion, 1 spay in each nostril SunDec 18 00:00:00 EDT 2023 Oxygen 3 Liter Inhalation Continuous Indication: 3-4 lpm via cannula for soa SunDec 11 00:00:00 EDT 2023 amLODIPine 10 mg tablet 1 Tablet Oral 1 Time Daily Indication: heart disease, hypertension SunDec 11 00:00:00 EDT 2023 Xanax 1 mg tablet 1 Tablet Oral 4 Time s Daily Indication: anxiety SunDec 11 00:00:00 EDT 2023 isosorbide mononitrate ER 60 mg tablet,extended release 24 hr 1 Tablet Oral 1 Time Daily Indication: heart disease SunDec 11 00:00:00 EDT 2023 multivitamin tablet 1 Tablet Oral 1 Time Daily Indication: supplement SunDec 11 00:00:00 EDT 2023 glimepiride 4 mg tablet 1 Tablet Oral 1 Time Daily Indication: diabetes SunDec 11 00:00:00 EDT 2023 Adriana Aug 10 12:50:00 EDT 2024 Uloric 40 mg tablet 1 Tablet Oral 1 Time Daily Indication: uric acid SunDec 11 00:00:00 EDT 2023 pantoprazole 40 mg tablet,delayed release 1 Tablet Oral 1 Time Daily Indication: GERD, stomach problems SunDec 11 00:00:00 EDT 2023 carvediloL 12.5 mg tablet 1 Tablet Oral 2 Times Daily Indication: cardiac disease SunDec 11 00:00:00 EDT 2023 Eliquis 2.5 mg tablet 1 Tablet Oral 2 Ti mes Daily Indication: blood thiner/cardiac disease SunDec 11 00:00:00 EDT 2023Dec 18 13:48:00 EDT 2023 furosemide 40 mg tablet 1 Tablet Oral 2 Times Daily Indication: chf/edema SunDec 11 00:00:00 EDT 2023 furosemide 40 mg tablet 1.5 Tablet Oral 1 Time Daily Indication: at noon edema /chf SunDec 11 00:00:00 EDT 2023 potassium chloride ER 20 mEq tablet,extended release 1 Tablet Oral 1 Time Daily Indication: potassium supplement SunDec 11 00:00:00 EDT 2023 clopidogreL 75 mg tablet 1 Tablet Oral 1 Time Daily Indication: cardiac disease SunDec 11 00:00:00 EDT 2023 atorvastatin 40 mg tablet 1 Tablet Oral 1 Time Daily Indication: hyperlipidemia SunDec 11 00:00:00 EDT 2023 ferrous sulfate 325 mg (65 mg iron) tablet 1 Tablet Oral 1 Time Daily Indication: anemia SunDec 11 00:00:00 EDT 2023 ipratropium 0.5 mg-albuteroL 3 mg (2.5 mg base)/3 mL nebulization soln 3 Milliliter Inhalation 4 Times Daily Indication: soa congestion, copd SunDec 11 00:00:00 EDT 2023 ZyrTEC 10 mg capsule 1 Capsule Oral PRN 1 Time Daily Indication: sinuses/ drainage SunDec 11 00:00:00 EDT 2023 Xarelto 15 mg tablet 1 Tablet Oral 1 Pelon e Daily Indication: heard disease SunDec 11 00:00:00 EDT 2023Jun 04 13:20:00 EDT 2024 Treatment Plan Problems No Known Problems Vital Signs Vital Sign Measurement Date Systolic blood pressure 142 mm[Hg] SunJun 04 03:30:00 EDT 2024 Diastolic blood pressure 70 mm[Hg] SunJun 04 03:30:00 EDT 2024 Respiratory rate 24 /min SunJun 04 03:3 0:00 EDT 2024 Heart rate 72 /min SunJun 04 03:30 :00 EDT 2024 Systolic blood pressure 122 mm[Hg] SunJuly 09 03:30:00 EDT 2024 Diastolic blood pressure 70 mm[Hg] SunJuly 09 03:30:00 EDT 2024 Respiratory rate 20 /min SunJuly 09 03:3 0:00 EDT 2024 Heart rate 72 /min SunJuly 09 03:30 :00 EDT 2024 Systolic blood pressure 128 mm[Hg] SunFeb 12 03:30:00 EST 2023 Diastolic blood pressure 62 mm[Hg] SunFeb 12 03:30:00 EST 2023 Respiratory rate 20 /min SunFeb 12 03:3 0:00 EST 2023 Heart rate 72 /min SunFeb 12 03:30 :00 EST 2023 Systolic blood pressure 122 mm[Hg] SunMay 14 03:30:00 EDT 2024 Diastolic blood pressure 70 mm[Hg] SunMay 14 03:30:00 EDT 2024 Respiratory rate 20 /min SunMay 14 03:3 0:00 EDT 2024 Heart rate 72 /min SunMay 14 03:30 :00 EDT 2024 Systolic blood pressure 108 mm[Hg] SunJun 25 03:40:00 EDT 2024 Diastolic blood pressure 70 mm[Hg] SunJun 25 03:40:00 EDT 2024 Respiratory rate 24 /min SunJun 25 03:4 0:00 EDT 2024 Heart rate 76 /min SunJun 25 03:40 :00 EDT 2024 Systolic blood pressure 138 mm[Hg] SunFeb 21 02:30:00 EST 2023 Diastolic blood pressure 62 mm[Hg] SunFeb 21 02:30:00 EST 2023 Respiratory rate 20 /min SunFeb 21 02:3 0:00 EST 2023 Heart rate 72 /min SunFeb 21 02:30 :00 EST 2023 Systolic blood pressure 138 mm[Hg] SunMar 26 04:00:00 EST 2024 Diastolic blood pressure 70 mm[Hg] SunMar 26 04:00:00 EST 2024 Respiratory rate 24 /min SunMar 26 04:0 0:00 EST 5 Heart rate 76 /min SunMar 26 04:00 :00 EST 2024 Systolic blood pressure 110 mm[Hg] SunJan 01 03:30:00 EST 2023 Diastolic blood pressure 62 mm[Hg] SunJan 01 03:30:00 EST 2023 Respiratory rate 20 /min SunJan 01 03:3 0:00 EST 2023 Heart rate 76 /min SunJan 01 03:30 :00 EST 2023 Systolic blood pressure 128 mm[Hg] SunSep 03 03:10:00 EDT 202 Diastolic blood pressure 88 mm[Hg] SunSep 03 03:10:00 EDT 202 Respiratory rate 24 /min SunSep 03 03:1 0:00 EDT 202 Heart rate 76 /min SunSep 03 03:10 :00 EDT 202 Systolic blood pressure 122 mm[Hg] SunApr 30 02:00:00 EST 2024 Diastolic blood pressure 62 mm[Hg] SunApr 30 02:00:00 EST 202 Respiratory rate 24 /min SunApr 30 02:0 0:00 EST 2025 Heart rate 72 /min SunApr 30 02:00 :00 EST 2024 Systolic blood pressure 122 mm[Hg] SunSep 17 03:45:00 EDT 202 Diastolic blood pressure 60 mm[Hg] SunSep 17 03:45:00 EDT 202 Respiratory rate 20 /min SunSep 17 03:4 5:00 EDT 202 Heart rate 72 /min SunSep 17 03:45 :00 EDT 202 Systolic blood pressure 118 mm[Hg] SunApr 09 02:35:00 EST 2024 Diastolic blood pressure 70 mm[Hg] Sunb 02:35:00 EST 202 Respiratory rate 20 /min SunApr 09 02:3 5:00 EST 202 Heart rate 75 /min SunApr 09 02:35 :00 EST 202 Systolic blood pressure 122 mm[Hg] SunFeb 05 03:50:00 EST 2023 Diastolic blood pressure 62 mm[Hg] SunFeb 05 03:50:00 EST 2023 Respiratory rate 20 /min SunFeb 05 03:5 0:00 EST 202 Heart rate 76 /min SunFeb 05 03:50 :00 EST 2023 Systolic blood pressure 112 mm[Hg] SunJuly 02 03:30:00 EDT 202 Diastolic blood pressure 76 mm[Hg] SunJuly 02 03:30:00 EDT 2024 Respiratory rate 24 /min SunJuly 02 03:3 0:00 EDT 2024 Heart rate 76 /min SunJuly 02 03:30 :00 EDT 2024 Systolic blood pressure 136 mm[Hg] SunMay 07 04:45:00 EDT 2024 Diastolic blood pressure 68 mm[Hg] SunMay 07 04:45:00 EDT 2024 Respiratory rate 24 /min SunMay 07 04:4 5:00 EDT 2024 Heart rate 78 /min SunMay 07 04:45 :00 EDT 2024 Systolic blood pressure 118 mm[Hg] SunDec 25 05:30:00 EDT 2023 Diastolic blood pressure 70 mm[Hg] SunDec 25 05:30:00 EDT 2023 Respiratory rate 24 /min SunDec 25 05:3 0:00 EDT 2023 Heart rate 76 /min SunDec 25 05:30 :00 EDT 2023 Systolic blood pressure 112 mm[Hg] SunAug 27 03:15:00 EDT 2024 Diastolic blood pressure 60 mm[Hg] SunAug 27 03:15:00 EDT 2024 Respiratory rate 24 /min SunAug 27 03:1 5:00 EDT 2024 Heart rate 72 /min SunAug 27 03:15 :00 EDT 2024 Systolic blood pressure 122 mm[Hg] SunJuly 23 02:50:00 EDT 2024 Diastolic blood pressure 70 mm[Hg] SunJuly 23 02:50:00 EDT 2024 Respiratory rate 24 /min SunJuly 23 02:5 0:00 EDT 2024 Heart rate 72 /min SunJuly 23 02:50 :00 EDT 2024 Systolic blood pressure 112 mm[Hg] SunSep 24 03:10:00 EDT 2024 Diastolic blood pressure 62 mm[Hg] SunSep 24 03:10:00 EDT 2024 Respiratory rate 20 /min SunSep 24 03:1 0:00 EDT 2024 Heart rate 72 /min SunSep 24 03:10 :00 EDT 2024 Systolic blood pressure 112 mm[Hg] SunSep 10 03:30:00 EDT 2024 Diastolic blood pressure 62 mm[Hg] SunSep 10 03:30:00 EDT 2024 Respiratory rate 24 /min SunSep 10 03:3 0:00 EDT 2024 Heart rate 76 /min SunSep 10 03:30 :00 EDT 2024 Systolic blood pressure 132 mm[Hg] Sun 24 07:12:00 EDT 2024 Diastolic blood pressure 64 mm[Hg] Sun 24 07:12:00 EDT 2024 Respiratory rate 24 /min SunAug 19 07:1 2:00 EDT 2024 Heart rate 60 /min SunAug 19 07:12 :00 EDT 2024 Systolic blood pressure 128 mm[Hg] SunAug 06 03:00:00 EDT 2024 Diastolic blood pressure 70 mm[Hg] SunAug 06 03:00:00 EDT 2024 Respiratory rate 16 /min SunAug 06 03:0 0:00 EDT 2024 Heart rate 72 /min SunAug 06 03:00 :00 EDT 2024 Systolic blood pressure 118 mm[Hg] SunDec 18 06:45:00 EDT 2023 Diastolic blood pressure 62 mm[Hg] SunDec 18 06:45:00 EDT 2023 Respiratory rate 24 /min SunDec 18 06:4 5:00 EDT 2023 Heart rate 76 /min SunDec 18 06:45 :00 EDT 2023 Systolic blood pressure 138 mm[Hg] SunJun 11 04:00:00 EDT 2024 Diastolic blood pressure 70 mm[Hg] SunJun 11 04:00:00 EDT 2024 Respiratory rate 20 /min SunJun 11 04:0 0:00 EDT 2024 Heart rate 68 /min SunJun 11 04:00 :00 EDT 2024 Systolic blood pressure 122 mm[Hg] SunJan 08 03:45:00 EST 2023 Diastolic blood pressure 70 mm[Hg] SunJan 08 03:45:00 EST 2023 Respiratory rate 24 /min SunJan 08 03:4 5:00 EST 2023 Heart rate 72 /min SunJan 08 03:45 :00 EST 2023 Body height 63 [in_i] SunDec 11 10:00 :00 EDT 2023 Body weight 229 [lb_av] SunDec 11 10:00 :00 EDT 2023 Systolic blood pressure 120 mm[Hg] SunDec 11 10:00:00 EDT 2023 Diastolic blood pressure 62 mm[Hg] SunDec 11 10:00:00 EDT 2023 Respiratory rate 20 /min SunDec 11 10:0 0:00 EDT 2023 Heart rate 68 /min SunDec 11 10:00 :00 EDT 2023 Systolic blood pressure 138 mm[Hg] SunJan 15 04:15:00 EST 2023 Diastolic blood pressure 70 mm[Hg] SunJan 15 04:15:00 EST 2023 Respiratory rate 20 /min SunJan 15 04:1 5:00 EST 2023 Heart rate 72 /min SunJan 15 04:15 :00 EST 2023 Systolic blood pressure 122 mm[Hg] Adriana Feb 27 05:10:00 EST 2024 Diastolic blood pressure 70 mm[Hg] Adriana Feb 27 05:10:00 EST 2024 Respiratory rate 20 /min Adriana Feb 27 05:1 0:00 EST 2024 Heart rate 68 /min Adriana Feb 27 05:10 :00 EST 2024 Systolic blood pressure 130 mm[Hg] SunJun 18 03:45:00 EDT 2024 Diastolic blood pressure 72 mm[Hg] SunJun 18 03:45:00 EDT 2024 Respiratory rate 20 /min SunJun 18 03:4 5:00 EDT 2024 Heart rate 76 /min SunJun 18 03:45 :00 EDT 2024 Systolic blood pressure 142 mm[Hg] SunJan 29 03:35:00 EST 2023 Diastolic blood pressure 70 mm[Hg] SunJan 29 03:35:00 EST 2023 Respiratory rate 20 /min SunJan 29 03:3 5:00 EST 2023 Heart rate 76 /min SunJan 29 03:35 :00 EST 2023 Systolic blood pressure 128 mm[Hg] SunMay 21 03:45:00 EDT 2024 Diastolic blood pressure 62 mm[Hg] SunMay 21 03:45:00 EDT 2024 Respiratory rate 20 /min SunMay 21 03:4 5:00 EDT 2024 Heart rate 72 /min SunMay 21 03:45 :00 EDT 2024 Systolic blood pressure 126 mm[Hg] SunJul 30 04:19:00 EDT 2024 Diastolic blood pressure 70 mm[Hg] SunJul 30 04:19:00 EDT 2024 Respiratory rate 24 /min SunJul 30 04:1 9:00 EDT 2024 Heart rate 70 /min SunJul 30 04:19 :00 EDT 2024 Systolic blood pressure 132 mm[Hg] SunMar 12 04:45:00 EST 2024 Diastolic blood pressure 70 mm[Hg] SunMar 12 04:45:00 EST 2024 Respiratory rate 24 /min SunMar 12 04:4 5:00 EST 2024 Heart rate 76 /min SunMar 12 04:45 :00 EST 2024 Systolic blood pressure 132 mm[Hg] Wed Feb 02:40:00 EST 2024 Diastolic blood pressure 70 mm[Hg] Wed Feb 02:40:00 EST 2024 Respiratory rate 20 /min Sun Feb 02:4 0:00 EST 2024 Heart rate 72 /min Wed Feb 02:40 :00 EST 2024 Systolic blood pressure 122 mm[Hg] Adriana Alfie 19 02:50:00 EDT 2024 Diastolic blood pressure 70 mm[Hg] Sun 19 02:50:00 EDT 2024 Respiratory rate 24 /min Adriana Alfie 19 02:5 0:00 EDT 2024 Heart rate 68 /min SunAug 14 02:50 :00 EDT 2024 Systolic blood pressure 132 mm[Hg] SunMar 19 04:10:00 EST 2024 Diastolic blood pressure 70 mm[Hg] SunMar 19 04:10:00 EST 2024 Respiratory rate 24 /min SunMar 19 04:1 0:00 EST 2024 Heart rate 76 /min SunMar 19 04:10 :00 EST 2024 Systolic blood pressure 122 mm[Hg] Sun Feb 03:30:00 EST 2024 Diastolic blood pressure 70 mm[Hg] Sunb 03:30:00 EST 2024 Respiratory rate 24 /min SunApr 16 03:3 0:00 EST 2024 Heart rate 72 /min SunApr 16 03:30 :00 EST 2024 Systolic blood pressure 134 mm[Hg] SunMay 28 03:36:00 EDT 2024 Diastolic blood pressure 78 mm[Hg] SunMay 28 03:36:00 EDT 2024 Respiratory rate 26 /min SunMay 28 03:3 6:00 EDT 2024 Heart rate 80 /min SunMay 28 03:36 :00 EDT 2024 Systolic blood pressure 132 mm[Hg] SunMar 05 03:00:00 EST 2024 Diastolic blood pressure 70 mm[Hg] SunMar 05 03:00:00 EST 2024 Respiratory rate 24 /min SunMar 05 03:0 0:00 EST 2024 Heart rate 72 /min SunMar 05 03:00 :00 EST 2024 Systolic blood pressure 128 mm[Hg] SunMay 30 11:18:00 EDT 2024 Diastolic blood pressure 68 mm[Hg] SunMay 30 11:18:00 EDT 2024 Respiratory rate 26 /min SunMay 30 11:1 8:00 EDT 2024 Heart rate 78 /min SunMay 30 11:18 :00 EDT 2024 Systolic blood pressure 128 mm[Hg] SunJuly 16 03:00:00 EDT 2024 Diastolic blood pressure 62 mm[Hg] SunJuly 16 03:00:00 EDT 2024 Respiratory rate 24 /min SunJuly 16 03:0 0:00 EDT 2024 Heart rate 76 /min SunJuly 16 03:00 :00 EDT 2024 Systolic blood pressure 132 mm[Hg] SunApr 02 02:05:00 EST 2024 Diastolic blood pressure 70 mm[Hg] SunApr 02 02:05:00 EST 2024 Respiratory rate 24 /min SunApr 02 02:0 5:00 EST 2024 Heart rate 72 /min SunApr 02 02:05 :00 EST 2024 Reason for Referral
--- OUTSIDE RECORDS SUMMARY | 2024-09-26 17:29 | XMS_ITS | Clinical Summary ---
Author Organization Healthcare Address [address] [place] [address] Care Team Providers Care Project Controls Specialist Name Role Phone Delta Moore MD Primary Care Provider [phone] Family History Medical History Relation Name Comments Aneurysm Father Arthritis Father Tremor Mother Relation Name Status Comments Father Mother Social History Tobacco Use Types Packs/Day Years Used Date Smoking Tobacco: Former Alcohol Use Standard Drinks/Week Comments No 0 (1 standard drink = 0.6 oz pur e alcohol) Sex and Gender Information Value Date Recorded Sex Assigned at Not on file Legal Sex Male 6:34 PM EDT Gender Identity Not on file Sexual Orientation Not on file Last Filed Vital Signs Vital Sign Reading Time Taken Comments Blood Pressure - - Pulse - - Temperature - - Respiratory Rate - - Oxygen Saturation - - Inhaled Oxygen Concentration - - Weight 128 kg (283 lb 0.1 oz) 10/26/2014 2:05 PM EDT Height 191.8 cm (6' 3.5 ) 10/13/2013 2:42 PM EDT Body Mass Index 34.91 10/13/2013 2:42 PM EDT Plan of Treatment Not on file Care Teams Project Controls Specialist Relationship Specialty Start Date End Date Delta Moore MD [address] [place] [address] #1 #1 RL Packer [id number] PCP - General 07/09/20
[2024-09-26 18:01] LABS: Hematocrit 28.8 % (42.0-52.0); Hemoglobin 9.2 g/dL (14.1-18.0); Immature Granulocytes % 0.4 %; Mean Corpuscular HGB Conc 31.9 g/dL (31.8-35.4); Mean Corpuscular Hemoglobin 31.3 pg (27.0-31.2); Mean Corpuscular Volume 98.0 fl (80-94); Nucleated Red Blood Cells % 0 %; Platelet Count 231 K/mm3 (142-424); Red Blood Count 2.94 M/mm3 (4.60-6.20); Red Cell Distribution Width-SD 50.4 fL; White Blood Count 9.5 K/mm3 (4.8-10.8)
[2024-09-26 18:07] LABS: Microscopic, Urine URINE MICROSCOPIC (MICROSCOPIC)
[2024-09-26 18:07] LABS: Alanine Aminotransferase 16 U/L (12-78); Albumin Level 3.5 g/dl (3.5-5.0); Albumin/Globulin Ratio 1.3 (1.1-1.8); Alkaline Phosphatase 99 U/L (38-126); Anion Gap 12.5 mEq/L (5-15); Aspartate Amino Transferase 21 U/L (17-59); Bilirubin,Total 0.7 mg/dl (0.2-1.3); Blood Urea Nitrogen 70 mg/dl (9-20); Calcium 9.5 mg/dl (8.4-10.2); Carbon Dioxide 35 mmol/L (22.0-30.0); Chloride 95 mmol/L (98-107); Creatinine Clearance Estimated 17 mL/min (50-200); Estimated Glomerular Filt Rate 12 ml/min (>60); GFR (African American) 15 ML/MIN (>60); Globulin 2.7 g/dL (1.3-3.2); Potassium 5.5 mmoL/L (3.5-5.1); Sodium 137 mmol/L (136-145); Total Protein,Serum 6.2 g/dl (6.3-8.2)
--- NOTE | 2024-09-26 18:08 | ED_ITS ---
<Statement entered by Christiano Clay MD - 09/26/24 23:12> I was consulted by the SOL, and we discussed the complexity of the problems being addressed. I approved the treatment and management plan for this patient's care in the emergency department, thus performing a substantive portion of the medical decision making. Christiano Clay MD, [place], FACEP Discharge Plan Disposition Patient Disposition: Home, Self-Care Prescriptions Prescriptions: No Action carvedilol [Coreg] 12.5 mg tablet 12.5 mg PO BID glimepiride 4 mg tablet 4 mg PO DAILY febuxostat [Uloric] 40 mg tablet 40 mg PO DAILY furosemide 40 mg tablet 40 mg PO BID Qty: 60 5RF Xarelto 15 mg tablet 15 mg PO QPMWITHMEAL alprazolam 1 mg tablet 1 mg PO QID potassium chloride 20 mEq tablet,ER particles/crystals 20 meq PO BID prednisone 10 mg tablet 10 mg PO DAILY pantoprazole 40 MG tablet,delayed release (DR/EC) 40 mg PO DAILY clopidogrel 75 tablet 75 mg PO DAILY atorvastatin 40 mg tablet 40 mg PO DAILY ipratropium-albuterol 3 ML solution for nebulization 3 ml inhalation QID isosorbide mononitrate 60 MG tablet extended release 24 hr 60 mg PO DAILY amlodipine 10 mg tablet 10 mg PO DAILY Referrals Follow up/Referrals: Zara Moore MD [Primary Care Provider, Medical] - See instructions Activity Restrictions/Add. Instructions Additional Instructions/Restrictions: Today you were evaluated in the emergency department. Your kidney function is declining, this is contributing to your overall increase of generalized weakness. You were offered admission for senior care placement which you declined. Please return to the ED for any worsening of your condition or if you change your mind about admission and senior care placement. You are discharged today in the care of your son. Clinical Impressions Clinical Impression: Chronic kidney disease COPD (chronic obstructive pulmonary disease) Qualifiers: COPD type: unspecified COPD Qualified Code(s): J44.9 - Chronic obstructive pulmonary disease, unspecified CHF (congestive heart failure) Qualifiers: Heart failure type: unspecified Heart failure chronicity: unspecified Qualified Code(s): I50.9 - Heart failure, unspecified Instructions Patient Instructions: Chronic Kidney Disease Print Language Print Language: Malay Discharge ED Provider: Christiano Clay General Adult [facility] General Chief complaint: Weakness Stated complaint: Weakness Time Seen by Provider: 09/26/24 17:49 Mode of Arrival: EMS Source of Information: Patient and EMS Description of Symptoms (Recalled from ER Triage Doc. by RN): Patient presents to ED via EMS, reports they were called out twice today for falls/lift assist. Reports the patient refused to be transported to the ED the first time but requested to come in after the second fall for weakness. Reports patient is on Hospice and wear 2.5L at baseline, patient presents on 4L NC, SAT 97%. Skin tear to right wrist noted. History of Present Illness HPI narrative: patient is an 84-year-old male PMHx chronic kidney disease, generalized weakness, hypertension, CHF, multiple falls, diabetes who presents to the ED for complaints of worsening generalized weakness and right knee pain. Patient states that he feels a bit more weak than normal. Related Data Home Medications ?Medication ?Instructions ?Recorded ?Confirmed carvedilol 12.5 mg tablet (Coreg) 12.5 mg PO BID Hyper tension 03/12/17 10/16/23 febuxostat 40 mg tablet (Uloric) 40 mg PO DAILY gout 0 03/12/17 10/16/23 glimepiride 4 mg tablet 4 mg PO DAILY Diabetes 03/1210/16/23 pantoprazole 40 mg tablet,delayed 40 mg PO DAILY Acid Reflux 01/28/18 10/16/23 release clopidogrel 75 mg tablet 75 mg PO DAILY PLATELET INHI BITOR 06/01/18 10/16/23 alprazolam 1 mg tablet 1 mg PO QID Anxiety 10/06/19 10/16/23 potassium chloride 20 mEq 20 meq PO BID Supplement 12/1510/16/23 tablet,extended release(part/cryst) rivaroxaban 15 mg tablet (Xarelto) 15 mg PO QPMWITHMEA L Blood Thinner 03/29/21 10/16/23 amlodipine 10 mg tablet 10 mg PO DAILY Hypertension 09/18/22 10/16/23 atorvastatin 40 mg tablet 40 mg PO DAILY Cholesterol 0 09/18/22 10/16/23 ipratropium 0.5 mg-albuterol 3 mg 3 ml inhalation QID Breathing 09/18/22 10/16/23 (2.5 mg base)/3 mL nebulization Problems soln isosorbide mononitrate 60 mg 60 mg PO DAILY Hypertensi on 09/18/22 10/16/23 tablet,extended release 24 hr prednisone 10 mg tablet 10 mg PO DAILY Breathing pro blems 01/08/24 01/08/24 Previous Rx's ?Medication ?Instructions ?Recorded furosemide 40 mg tablet 40 mg PO BID Fluid #60 tabs 03/19/18 Allergies Allergy/AdvReac Type Severity Reaction Status Date / Time cefuroxime (From CEFTIN) Allergy Unknown Verified 01/08/24 09:54 vancomycin (VANCOMYCIN) Allergy Unknown Verified 01/08/24 09:54 [facility] Disclaimer: The information contained in this section may have been updated after the patient was seen, as this information can be updated by other users. Medical History Type 2 diabetes mellitus without complication, without long-term current use of insulin Onychomycosis Edema of both lower extremities Anemia of chronic disease Anemia remained stable during hospitalization D-dimer, elevated CHF (congestive heart failure) COPD (chronic obstructive pulmonary disease) Patient has underlying COPD which became symptomatic during hospitalization with expiratory wheezes. Steroids were added along with duo nebs. Patient will continue his home use of inhalers at discharge to [place]. He will also be ordered steroids which will require weaning Chronic kidney disease, stage 4 (severe) Hypertensive disorder Social History Smoking Status: Former smoker tobacco type: cigarettes packs per day: 2 second hand exposure: No alcohol intake: never substance use type: denies use current occupational status: retired and disabled Travel in the last 8 weeks?: None household members: children housing: house current occupational exposures/hazards: No caffeine: No Have you lived/traveled outside [place] in past 30 days?: No Contact w/someone who lives/traveled outside US past 30 days?: No Exposure to someone with infectious disease in past 14 days?: No Do you have a fever (greater than 100.4 F or 38 C)?: No Have you tested positive for COVID-19?: No Exposed to someone with COVID-19 in past 14 days?: No Do you have a sore throat?: No Do you have a cough?: No Do you have any weakness?: No Do you have any diarrhea?: No Are you experiencing any unusual bleeding?: No Do you have any muscle aches/pain?: No Do you have any abdominal pain?: No Are you experiencing loss of taste or smell?: No Other Medical History Have you received the Flu Vaccine for this season: No Have you received the Pneumonia Vaccine: Yes ROS Obtained: Yes Systems reviewed as appropriate & no additional complaints except as documented Physical Exam General General appearance: alert Respiratory Respiratory exam: Present normal lung sounds bilaterally Cardiovascular Cardiovascular exam: Present regular rate Extremities Exam Extremities exam: Present edema Neurological Exam Neurological exam: Present alert and oriented X3 Medical Decision Making Medical Records Screening: Per USPSTF and CDC recommendations, given the prevalence of disease in our region, it is our hospital?s policy to screen for HIV and viral Hepatitis for all patients aged 18 and over and those with ongoing risk factors. [place] Inquiry Pt receiving controlled substance: No Vital Signs: 09/26/24 17:34 09/26/24 17:48 09/26/24 18:01 Temperature 98.2 F Temperature Source Oral Pulse Rate 69 Pulse Rate [Right] 70 Respiratory Rate 21 17 20 Blood Pressure 128/54 L 116/58 L Blood Pressure [Right Arm] 140/68 Blood Pressure Mean 72 77 Blood Pressure Mean [Right Arm] 92 Blood Pressure Source [Right Arm] Automatic Cuff Blood Pressure Position [Right Arm] Supine 02 Sat by Pulse Oximetry 97 98 93 L Oxygen Delivery Method Nasal Cannula Nasal Cannula Oxygen Flow Rate (LPM) 7 4 4 09/26/24 18:31 09/26/24 19:01 09/26/24 19:31 Temperature Temperature Source Pulse Rate 66 71 67 Pulse Rate [Right] Respiratory Rate 19 22 20 Blood Pressure 94/57 L 140/94 H 115/79 Blood Pressure [Right Arm] Blood Pressure Mean 69 97 Blood Pressure Mean [Right Arm] Blood Pressure Source [Right Arm] Blood Pressure Position [Right Arm] 02 Sat by Pulse Oximetry 99 97 94 L Oxygen Delivery Method Nasal Cannula Nasal Cannula Oxygen Flow Rate (LPM) 4 2.5 09/26/24 20:01 Temperature Temperature Source Pulse Rate 60 Pulse Rate [Right] Respiratory Rate 19 Blood Pressure 128/68 Blood Pressure [Right Arm] Blood Pressure Mean 93 Blood Pressure Mean [Right Arm] Blood Pressure Source [Right Arm] Blood Pressure Position [Right Arm] 02 Sat by Pulse Oximetry 99 Oxygen Delivery Method Oxygen Flow Rate (LPM) Lab Data Lab Results 09/26/24 17:07: WBC 9.5, RBC 2.94 L, Hgb 9.2 L, Hct 28.8 L, MCV 98.0 H, MCH 31.3 H, MCHC 31.9, RDW 14.1, Plt Count 231, MPV 11.8 H, Neut % (Auto) 71.5, Lymph % (Auto) 16.9, [place] % (Auto) 9.8 H, Eos % (Auto) 1.2, Baso % (Auto) 0.2, Neut # (Auto) 6.8, Lymph # (Auto) 1.6, [place] # (Auto) 0.9, Eos # (Auto) 0.1, Baso # (Auto) 0.0, Sodium 137, Potassium 5.5 H, Chloride 95 L, Carbon Dioxide 35 H, Anion Gap 12.5, BUN 70 H, Creatinine 4.50 H, Estimated Creat Clear 17, Estimated GFR 12 L*, Est GFR ( Amer) 15 L*, Glucose 430 H*, Calcium 9.5, Total Bilirubin 0.7, AST 21, ALT 16, Alkaline Phosphatase 99, Total Protein 6.2 L, Albumin 3.5, Globulin 2.7, Albumin/Globulin Ratio 1.3 09/26/24 18:02: Urine Color Yellow, Urine Appearance Clear, Urine pH 5.5, Ur Specific [place] 1.015, Urine Protein Trace, Urine Glucose (UA) 1+, Urine Ketones Trace, Urine Blood Negative, Urine Nitrate Negative, Urine Bilirubin Negative, Urine Urobilinogen 0.2, Ur Leukocyte Esterase Negative, Urine RBC None, Urine WBC Occasional, Ur Squamous Epith Cells 3-5, Urine Bacteria Trace 09/26/24 18:12: VBG pH 7.38, VBG pCO2 52.3 H, VBG pO2 45.5 H, VBG HCO3 29.9, VBG Total CO2 31.5 H, VBG O2 Saturation 81.2 H, VBG Base Excess 3.9 H, VBG Lactic Acid 1.7 09/26/24 17:07 09/26/24 17:07 Orders (Tests/Meds): ORDERS Category Date Time Status CBC w/Auto Diff [Complete Blood Count Auto Diff] Stat Lab 09/26/24 17:07 Completed CMP [Comprehensive Metabolic Panel] Stat Lab 09/26/24 17:07 Completed POC Glucose,Bedside Stat Lab 09/26/24 17:58 Ordered Urinalysis and Microscopic Stat Lab 09/26/24 18:02 Completed VBG [Venous Blood Gas] Stat RT 09/26/24 18:12 Completed Medical Decision Narrative: In summary, patient is an 84-year-old male PMHx chronic kidney disease, generalized weakness, hypertension, CHF, multiple falls, diabetes who presents to the ED for complaints of worsening generalized weakness and right knee pain. Patient states that he feels a bit more weak than normal. Patient states that at home his son assist him with ADLs and he has hospice come intermittently to help with bathing as well. Patient called EMS earlier as he was unable to get off the toilet even with assistance from his son. Patient states that other than his chronic knee pain and worsening of weakness he has no additional complaints. He denies fever, chills, body aches, headache, neck pain, chest pain, shortness of breath, abdominal pain, nausea, vomiting. Upon initial evaluation patient is alert, oriented and cooperative. He is stable. He is obese, sits in a wheelchair and uses oxygen NC. Discussed with patient we can proceed with hematologic labs. CBC unremarkable for any leukocytosis, stable H&H. CMP remarkable for potassium 5.5, BUN 70, creatinine 4.50, significant increase from previous in April. Estimated GFR 12. Glucose 430. Urinalysis unremarkable for any infectious process, trace ketones noted. My attending and myself had multiple discussions with patient and son about care options. We offered admission several times for senior care placement, patient adamantly declines admission and senior care placement. Patient states I do not want a senior care . Patient states that he would like to at home as he is already on hospice. I discussed dialysis with patient and son, patient declines dialysis. Staff had attempted to contact hospice multiple times. I discussed the risk of going home without anyone able to care for him. Patient is mentating well, alert and oriented, states that he is aware of the risk and would like to be discharged home. Due to patient being on hospice, verbalizing that he does not want to stay in the hospital and would like to be discharged home, I discharge patient home in stable condition. Critical Care Critical Care Time Critical Care Time: No
[2024-09-26 18:09] LABS: Creatinine,Serum 4.50 mg/dl (0.66-1.25); Glucose 430 mg/dl (74-100)
[2024-09-26 18:09] LABS: Bilirubin,Urine Negative (Negative); Color,Urine YELLOW (Yellow); Glucose,Urine (UA) 1+ (Negative); Ketones,Urine TRACE (Negative); Leukocyte Esterase,Urine Negative (Negative); PH,Urine 5.5 (5.0-8.5); Protein,Urine TRACE (Negative); Specific Gravity, Urine 1.015 (1.005-1.030); Urobilinogen,Urine 0.2 EU/dl (0.2)
--- NOTE | 2024-09-26 18:15 | PC.NURSE ---
Spoke with Gabby with Hospice, notified patient presented to ED and is currently being assessed.
[2024-09-26 18:18] LABS: WBC,Urine Occasional #/hpf (0-3)
[2024-09-26 18:19] LABS: Bacteria,Urine Trace /lpf
[2024-09-26 18:22] LABS: VBG HCO3 29.9 mmol/L (23-30); VBG PCO2 52.3 mmol/L (35-51); VBG PH 7.38 mmol/L (7.31-7.41); VBG PO2 45.5 mmol/L (28-40)
[2024-09-26 18:23] LABS: Lactate Venous 1.7 mmol/L (0.4-2.0)
--- NOTE | 2024-09-26 19:11 | PC.NURSE ---
report on patient at this time.
--- NOTE | 2024-09-26 19:50 | PC.NURSE ---
son reports that he is unable to take care of pt at home, unable to get pt in the house once he gets home. pt does not want to go to the senior care, called after house for hospice due to pt being on those services. Intake states that [facility] is closer on and will call us back to discuss further.
--- NOTE | 2024-09-26 20:02 | PC.NURSE ---
RN on the phone with hospice to discuss options for patient as he does not want to be admitted here nor to a nursing facility for further care. ED attending at the bedside to speak with patient and family at this time.
--- NOTE | 2024-09-26 20:14 | PC.NURSE ---
[facility] with hospice spoke with pt son about further care, pt has had a decline in physical strength and son is unable to get the pt home and in the home safely and unable to care for pt at home any longer, pt reports he does not want a assisted and wants to at home.
--- NOTE | 2024-09-26 21:12 | PC.NURSE ---
Called [facility]. Waiting to see if they can transport pt.
--- NOTE | 2024-09-26 22:56 | PC.NURSE ---
When this RN goes to discharge patient, I explain to him and family about insurance not covering transportation home, patient could pay out of pocket for transportation if he wished. This RN offers lift assist from wheelchair to vehicle with help from others. Pt reports that he did not bring home O2 with him. This RN reports that I am able to call for O2 tank to be delivered for transportation, pt does not wish to wait that long. Son at bedside reports that they live less than 1 mile away which patient would be fine without home O2. Pt O2 sats at appropriate level prior to discharge. Pt taken out to vehicle and assisted to van with minimal help.
== END 2024-09-26 23:03 | disposition home or self-care (01) ==
PROVIDERS: Nurse Practitioner; Emergency Provider Student in an Organized Health Care Education/Training Program; PCP Family Medicine
DX: R53.1 Weakness (principal); M25.561 Pain in right knee; J44.9 Chronic obstructive pulmonary disease, unspecified; N18.4 Chronic kidney disease, stage 4 (severe); I11.0 Hypertensive heart disease with heart failure; I50.9 Heart failure, unspecified; E11.9 Type 2 diabetes mellitus without complications; Z87.891 Personal history of nicotine dependence; Z66 Do not resuscitate; I13.0 Hypertensive heart and chronic kidney disease with heart failure and stage 1 through stage 4 chronic kidney disease, or unspecified chronic kidney disease
CPT/HCPCS: 80053; 81001; 82803; 85025; 99283

== ENCOUNTER 2024-09-29 06:18 | Emergency (ER) | payer OTHER, MEDICARE, BC, SELFPAY ==
[2024-09-29] VITALS (13 sets, daily range): BP systolic 112–149; BP diastolic 48–69; PULSE 60–82; RESP 17–27; TEMP 36.7–36.8; O2SAT 95–99; BMI 29.3
--- NOTE | 2024-09-29 06:25 | ED_ITS ---
Discharge Plan Disposition Patient Disposition: Xfer SNF Prescriptions Prescriptions: No Action carvedilol [Coreg] 12.5 mg tablet 12.5 mg PO BID glimepiride 4 mg tablet 4 mg PO DAILY febuxostat [Uloric] 40 mg tablet 40 mg PO DAILY furosemide 40 mg tablet 40 mg PO BID Qty: 60 5RF Xarelto 15 mg tablet 15 mg PO QPMWITHMEAL alprazolam 1 mg tablet 1 mg PO QID potassium chloride 20 mEq tablet,ER particles/crystals 20 meq PO BID prednisone 10 mg tablet 10 mg PO DAILY pantoprazole 40 MG tablet,delayed release (DR/EC) 40 mg PO DAILY clopidogrel 75 tablet 75 mg PO DAILY atorvastatin 40 mg tablet 40 mg PO DAILY ipratropium-albuterol 3 ML solution for nebulization 3 ml inhalation QID isosorbide mononitrate 60 MG tablet extended release 24 hr 60 mg PO DAILY amlodipine 10 mg tablet 10 mg PO DAILY Referrals Follow up/Referrals: Zara Moore MD [Primary Care Provider, Medical] - See instructions Clinical Impressions Clinical Impression: CHF (congestive heart failure), Renal failure Print Language Print Language: Polish Discharge ED Provider: Todd Ramesh General Adult HPI <Duncan Bridges MD - Last Filed: 09/29/24 07:37> General Chief complaint: Weakness Stated complaint: no complaints Time Seen by Provider: 09/29/24 06:25 History of Present Illness HPI narrative: 84-year-old male with history of COPD, heart failure, diabetes, on 3 L nasal cannula at baseline, on home hospice, presents after he was unable to get off the toilet. Son reports that he has been taking care of him for a long time at home but over the last month or so the patient has gotten progressively weaker. Last month he was able to walk with a cane, now he is unable to walk or assist himself really at all. The son is no longer able to get him to and from the bathroom. They were here recently and were evaluated and noted to have worsening renal function. Patient reports that he wants to at home, but he understands that his son is no longer able to care for him enough and so he is willing to be placed or admitted on hospice. Related Data Home Medications ?Medication ?Instructions ?Recorded ?Confirmed carvedilol 12.5 mg tablet (Coreg) 12.5 mg PO BID Hyper tension 03/12/17 10/16/23 febuxostat 40 mg tablet (Uloric) 40 mg PO DAILY gout 0 03/12/17 10/16/23 glimepiride 4 mg tablet 4 mg PO DAILY Diabetes 03/1210/16/23 pantoprazole 40 mg tablet,delayed 40 mg PO DAILY Acid Reflux 01/28/18 10/16/23 release clopidogrel 75 mg tablet 75 mg PO DAILY PLATELET INHI BITOR 06/01/18 10/16/23 alprazolam 1 mg tablet 1 mg PO QID Anxiety 10/06/19 10/16/23 potassium chloride 20 mEq 20 meq PO BID Supplement 12/1510/16/23 tablet,extended release(part/cryst) rivaroxaban 15 mg tablet (Xarelto) 15 mg PO QPMWITHMEA L Blood Thinner 03/29/21 10/16/23 amlodipine 10 mg tablet 10 mg PO DAILY Hypertension 09/18/22 10/16/23 atorvastatin 40 mg tablet 40 mg PO DAILY Cholesterol 0 09/18/22 10/16/23 ipratropium 0.5 mg-albuterol 3 mg 3 ml inhalation QID Breathing 09/18/22 10/16/23 (2.5 mg base)/3 mL nebulization Problems soln isosorbide mononitrate 60 mg 60 mg PO DAILY Hypertensi on 09/18/22 10/16/23 tablet,extended release 24 hr prednisone 10 mg tablet 10 mg PO DAILY Breathing pro blems 01/08/24 01/08/24 Previous Rx's ?Medication ?Instructions ?Recorded furosemide 40 mg tablet 40 mg PO BID Fluid #60 tabs 03/19/18 Allergies Allergy/AdvReac Type Severity Reaction Status Date / Time cefuroxime (From CEFTIN) Allergy Unknown Verified 01/08/24 09:54 vancomycin (VANCOMYCIN) Allergy Unknown Verified 01/08/24 09:54 [facility] <Duncan Bridges MD - Last Filed: 09/29/24 07:37> [facility] Disclaimer: The information contained in this section may have been updated after the patient was seen, as this information can be updated by other users. Medical History (Updated 09/29/24 @ 07:58 by Nelly Turner RN) Type 2 diabetes mellitus without complication, without long-term current use of insulin Onychomycosis Edema of both lower extremities Anemia of chronic disease D-dimer, elevated CHF (congestive heart failure) COPD (chronic obstructive pulmonary disease) Chronic kidney disease, stage 4 (severe) Hypertensive disorder Social History Smoking Status: Former smoker tobacco type: cigarettes packs per day: 2 second hand exposure: No alcohol intake: never substance use type: denies use current occupational status: retired and disabled Travel in the last 8 weeks?: None household members: children housing: house current occupational exposures/hazards: No caffeine: No Have you lived/traveled outside [place] in past 30 days?: No Contact w/someone who lives/traveled outside US past 30 days?: No Exposure to someone with infectious disease in past 14 days?: No Do you have a fever (greater than 100.4 F or 38 C)?: No Have you tested positive for COVID-19?: No Exposed to someone with COVID-19 in past 14 days?: No Do you have a sore throat?: No Do you have a cough?: No Do you have any weakness?: No Do you have any diarrhea?: No Are you experiencing any unusual bleeding?: No Do you have any muscle aches/pain?: No Do you have any abdominal pain?: No Are you experiencing loss of taste or smell?: No Other Medical History Have you received the Flu Vaccine for this season: No Have you received the Pneumonia Vaccine: Yes <Duncan Bridges MD - Last Filed: 09/29/24 07:37> ROS Obtained: Yes All systems reviewed & no additional complaints except as documented Physical Exam <Duncan Bridges MD - Last Filed: 09/29/24 07:37> General General appearance: alert and in no apparent distress Head Head exam: atraumatic and normocephalic Eye Eye exam: Present normal appearance, PERRL and EOMI ENT ENT exam: Present normal oropharynx and normal external ear exam Neck Neck exam: Present normal inspection and full ROM Chest Chest inspection: Present normal inspection and symmetric chest wall rise; Absent tenderness Respiratory Respiratory exam: Present normal lung sounds bilaterally; Absent respiratory distress Cardiovascular Cardiovascular exam: Present regular rate and normal rhythm Abdominal Exam Abdominal exam: Present soft; Absent distention, tenderness or guarding Extremities Exam Extremities exam: Present normal inspection and edema (Severe bilateral lower extremity); Absent joint swelling Back Exam Back exam: Present normal inspection; Absent tenderness Neurological Exam Neurological exam: Present alert and oriented X3; Absent motor sensory deficit Psychiatric Psychiatric exam: Present normal affect and normal mood Skin Skin exam: Present warm, dry and normal color Lymphatic Lymphatic Findings: no adenopathy Medical Decision Making <Duncan Bridges MD - Last Filed: 09/29/24 07:37> Medical Records Medical records reviewed: Yes I reviewed the patient's medical records. Screening: Per USPSTF and CDC recommendations, given the prevalence of disease in our region, it is our hospital?s policy to screen for HIV and viral Hepatitis for all patients aged 18 and over and those with ongoing risk factors. Naman Inquiry Pt receiving controlled substance: No Naman was queried for this patient: No Vital Signs: 09/29/24 06:20 09/29/24 06:20 09/29/24 06:30 Temperature 98.3 F 98.3 F Temperature Source Oral Oral Pulse Rate Pulse Rate [Left] 67 67 Respiratory Rate 27 H 27 H 17 Blood Pressure Blood Pressure [Right Arm] 112/52 L 112/52 L Blood Pressure Mean Blood Pressure Mean [Right Arm] 72 72 02 Sat by Pulse Oximetry 99 99 Oxygen Delivery Method Nasal Cannula Nasal Cannula Oxygen Flow Rate (LPM) 5 5 09/29/24 06:45 09/29/24 08:29 09/29/24 09:31 Temperature Temperature Source Pulse Rate 67 61 72 Pulse Rate [Left] Respiratory Rate 20 22 23 Blood Pressure 133/48 L 138/61 Blood Pressure [Right Arm] Blood Pressure Mean Blood Pressure Mean [Right Arm] 02 Sat by Pulse Oximetry 99 98 95 Oxygen Delivery Method Nasal Cannula Oxygen Flow Rate (LPM) 09/29/24 10:01 09/29/24 10:31 09/29/24 11:01 Temperature Temperature Source Pulse Rate 69 75 70 Pulse Rate [Left] Respiratory Rate 23 23 20 Blood Pressure 131/55 L 129/60 120/67 Blood Pressure [Right Arm] Blood Pressure Mean 83 84 Blood Pressure Mean [Right Arm] 02 Sat by Pulse Oximetry 95 95 96 Oxygen Delivery Method Oxygen Flow Rate (LPM) Lab Data Lab results reviewed: Yes I reviewed the patient's lab results. Lab Results 09/29/24 06:40: WBC 8.6, RBC 2.68 L, Hgb 8.5 L, Hct 26.5 L, MCV 98.9 H, MCH 31.7 H, MCHC 32.1, RDW 14.2, Plt Count 231, MPV 11.1 H, Neut % (Auto) 74.4, Lymph % (Auto) 13.7, [place] % (Auto) 8.4, Eos % (Auto) 2.3, Baso % (Auto) 0.4, Neut # (Auto) 6.4, Lymph # (Auto) 1.2, [place] # (Auto) 0.7, Eos # (Auto) 0.2, Baso # (Auto) 0.0, Sodium 135 L, Potassium 5.1, Chloride 95 L, Carbon Dioxide 34 H, Anion Gap 11.1, BUN 77 H, Creatinine 4.50 H, Estimated Creat Clear 17, Estimated GFR 12 L*, Est GFR ( Amer) 15 L*, Glucose 237 H, Calcium 9.4, Phosphorus 4.7 H, Magnesium 2.1, Total Bilirubin 0.7, AST 21, ALT 16, Alkaline Phosphatase 100, NT-Pro-B Natriuret Pep 4970 H, Total Protein 6.4, Albumin 2.8 L, Globulin 3.6 H, Albumin/Globulin Ratio 0.8 L 09/29/24 09:50: Urine Color Yellow, Urine Appearance Clear, Urine pH 5.5, Ur Specific [place] 1.020, Urine Protein Negative, Urine Glucose (UA) Negative, Urine Ketones Negative, Urine Blood Negative, Urine Nitrate Negative, Urine Bilirubin Negative, Urine Urobilinogen 0.2, Ur Leukocyte Esterase Negative, Urine RBC Occasional, Urine WBC 3-5, Ur Squamous Epith Cells Occasional, Urine Bacteria Trace 09/29/24 06:40 09/29/24 06:40 Orders (Tests/Meds): ED MEDICATIONS Discontinued Medications Generic Name Dose Route Start Last Admin Trade Name Freq PRN Reason Stop Dose Admin Albuterol/Ipratropium 3 ml 09/29/24 11:09 Ipratropium/Albuterol 3 Ml Neb IH 09/29/24 11:10 ONCE ONE Alprazolam 1 mg 09/29/24 11:30 Alprazolam 0.5mg Tablet PO 09/29/24 11:31 ONCE ONE Furosemide 40 mg 09/29/24 11:30 Furosemide 40 Mg Tablet PO 09/29/24 11:31 ONCE ONE ORDERS Category Date Time Status BNP [NT Pro Brain Natriuretic Pep.] Stat Lab 09/29/24 06:40 Completed CBC w/Auto Diff [Complete Blood Count Auto Diff] Stat Lab 09/29/24 06:40 Completed CMP [Comprehensive Metabolic Panel] Stat Lab 09/29/24 06:40 Completed MAG [Magnesium] Stat Lab 09/29/24 06:40 Completed PHOS [Phosphorous] Stat Lab 09/29/24 06:40 Completed UA [Urinalysis and Microscopic] Stat Lab 09/29/24 09:50 Completed Medical Decision Narrative: 84-year-old male with history of COPD, heart failure, diabetes, on 3 L nasal cannula at baseline, on home hospice, presents after he was unable to get off the toilet. His son is no longer able to care for him at home and he is agreeable to placement. History was obtained via interactive discussion with patient, family, EMS, chart review. On arrival, patient is afebrile, hemodynamically stable, satting appropriately on home nasal cannula, GCS 15, moving all extremities spontaneously. Full physical exam performed and significant for severe bilateral lower extremity edema Differential includes but is not limited to heart failure, renal failure, COPD, electrolyte derangement. Workup initiated including CBC CMP mag Phos UA. Called hospice to let them know the patient is here in the ER. On re-evaluation, patient [remains afebrile, HD stable.] Laboratory workup independently interpreted by me and significant for stable poor renal function, creatinine 4.5. Mild electrolyte derangements noted. No significant leukocytosis, downtrending hemoglobin. At this time care handed off to oncoming physician pending hospice eval. <Todd Ramesh MD - Last Filed: 09/29/24 12:46> Vital Signs: 09/29/24 06:20 09/29/24 06:20 09/29/24 06:30 Temperature 98.3 F 98.3 F Temperature Source Oral Oral Pulse Rate Pulse Rate [Left] 67 67 Respiratory Rate 27 H 27 H 17 Blood Pressure Blood Pressure [Right Arm] 112/52 L 112/52 L Blood Pressure Mean Blood Pressure Mean [Right Arm] 72 72 02 Sat by Pulse Oximetry 99 99 Oxygen Delivery Method Nasal Cannula Nasal Cannula Oxygen Flow Rate (LPM) 5 5 09/29/24 06:45 09/29/24 08:29 09/29/24 09:31 Temperature Temperature Source Pulse Rate 67 61 72 Pulse Rate [Left] Respiratory Rate 20 22 23 Blood Pressure 133/48 L 138/61 Blood Pressure [Right Arm] Blood Pressure Mean Blood Pressure Mean [Right Arm] 02 Sat by Pulse Oximetry 99 98 95 Oxygen Delivery Method Nasal Cannula Oxygen Flow Rate (LPM) 09/29/24 10:01 09/29/24 10:31 09/29/24 11:01 Temperature Temperature Source Pulse Rate 69 75 70 Pulse Rate [Left] Respiratory Rate 23 23 20 Blood Pressure 131/55 L 129/60 120/67 Blood Pressure [Right Arm] Blood Pressure Mean 83 84 Blood Pressure Mean [Right Arm] 02 Sat by Pulse Oximetry 95 95 96 Oxygen Delivery Method Oxygen Flow Rate (LPM) Lab Data Lab Results 09/29/24 06:40: WBC 8.6, RBC 2.68 L, Hgb 8.5 L, Hct 26.5 L, MCV 98.9 H, MCH 31.7 H, MCHC 32.1, RDW 14.2, Plt Count 231, MPV 11.1 H, Neut % (Auto) 74.4, Lymph % (Auto) 13.7, [place] % (Auto) 8.4, Eos % (Auto) 2.3, Baso % (Auto) 0.4, Neut # (Auto) 6.4, Lymph # (Auto) 1.2, [place] # (Auto) 0.7, Eos # (Auto) 0.2, Baso # (Auto) 0.0, Sodium 135 L, Potassium 5.1, Chloride 95 L, Carbon Dioxide 34 H, Anion Gap 11.1, BUN 77 H, Creatinine 4.50 H, Estimated Creat Clear 17, Estimated GFR 12 L*, Est GFR ( Amer) 15 L*, Glucose 237 H, Calcium 9.4, Phosphorus 4.7 H, Magnesium 2.1, Total Bilirubin 0.7, AST 21, ALT 16, Alkaline Phosphatase 100, NT-Pro-B Natriuret Pep 4970 H, Total Protein 6.4, Albumin 2.8 L, Globulin 3.6 H, Albumin/Globulin Ratio 0.8 L 09/29/24 09:50: Urine Color Yellow, Urine Appearance Clear, Urine pH 5.5, Ur Specific [place] 1.020, Urine Protein Negative, Urine Glucose (UA) Negative, Urine Ketones Negative, Urine Blood Negative, Urine Nitrate Negative, Urine Bilirubin Negative, Urine Urobilinogen 0.2, Ur Leukocyte Esterase Negative, Urine RBC Occasional, Urine WBC 3-5, Ur Squamous Epith Cells Occasional, Urine Bacteria Trace Orders (Tests/Meds): ED MEDICATIONS Discontinued Medications Generic Name Dose Route Start Last Admin Trade Name Freq PRN Reason Stop Dose Admin Albuterol/Ipratropium 3 ml 09/29/24 11:09 Ipratropium/Albuterol 3 Ml Neb IH 09/29/24 11:10 ONCE ONE Alprazolam 1 mg 09/29/24 11:30 Alprazolam 0.5mg Tablet PO 09/29/24 11:31 ONCE ONE Furosemide 40 mg 09/29/24 11:30 Furosemide 40 Mg Tablet PO 09/29/24 11:31 ONCE ONE ORDERS Category Date Time Status BNP [NT Pro Brain Natriuretic Pep.] Stat Lab 09/29/24 06:40 Completed CBC w/Auto Diff [Complete Blood Count Auto Diff] Stat Lab 09/29/24 06:40 Completed CMP [Comprehensive Metabolic Panel] Stat Lab 09/29/24 06:40 Completed MAG [Magnesium] Stat Lab 09/29/24 06:40 Completed PHOS [Phosphorous] Stat Lab 09/29/24 06:40 Completed UA [Urinalysis and Microscopic] Stat Lab 09/29/24 09:50 Completed Medical Decision Narrative: 84-year-old male with history of COPD, heart failure, diabetes, on 3 L nasal cannula at baseline, on home hospice, presents after he was unable to get off the toilet. His son is no longer able to care for him at home and he is agreeable to placement. History was obtained via interactive discussion with patient, family, EMS, chart review. On arrival, patient is afebrile, hemodynamically stable, satting appropriately on home nasal cannula, GCS 15, moving all extremities spontaneously. Full physical exam performed and significant for severe bilateral lower extremity edema Differential includes but is not limited to heart failure, renal failure, COPD, electrolyte derangement. Workup initiated including CBC CMP mag Phos UA. Called hospice to let them know the patient is here in the ER. On re-evaluation, patient [remains afebrile, HD stable.] Laboratory workup independently interpreted by me and significant for stable poor renal function, creatinine 4.5. Mild electrolyte derangements noted. No significant leukocytosis, downtrending hemoglobin. At this time care handed off to oncoming physician pending hospice eval. Todd Ramesh MD At the time my assumption of care, patient was pending evaluation by hospice service, who will tentatively arrive at 10 AM. Patient's urine shows no evidence of infection. BNP is elevated at 4970. Patient has chronically poor renal function with creatinine of 4.5 but this appears to be baseline. Hospice came and evaluated the patient at approximately 10 AM. They reported the patient and family want to get him into a facility and will have private pay. Case management was involved as well and ultimately patient was accepted to [facility] [place]. Given this, it is felt that patient is appropriate for discharge at this time and will be going to [facility] for further management and hospice care. This was discussed with the patient's son and he was in agreement with this plan. Procedures <Duncan Bridges MD - Last Filed: 09/29/24 07:37> Risk/Benefits of Procedure(s) Were Explained: Yes Critical Care <Duncan Bridges MD - Last Filed: 09/29/24 07:37> Critical Care Time Critical Care Time: No
--- OUTSIDE RECORDS SUMMARY | 2024-09-29 06:28 | XMS_ITS | Clinical Summary ---
Author Organization Healthcare Address [address] [place] [address] Care Team Providers Care Pmp Certified Project Manager Name Role Phone Delta Moore MD Primary Care Provider [phone] Family History Medical History Relation Name Comments [...] of Treatment Not on file Care Teams Pmp Certified Project Manager Relationship Specialty Start Date End Date Delta Moore MD [address] [place] [address] #1 #1 RL Packer [phone] PCP - General 07/09/20
--- NOTE | 2024-09-29 06:29 | PC.NURSE ---
Called hospice regarding this pt. stated i should get a call from the on-call hospice nurse within 15 min
--- NOTE | 2024-09-29 06:31 | PC.NURSE ---
Got in contact with on-call hospice nurse. stated she would let the team know
--- NOTE | 2024-09-29 06:40 | PC.NURSE ---
pt arrives in clothes that seemed to be soiled upon walking into room. Placed in gown and cirilo care complete due to dark dried stool found to be in patients pants. Depends placed, pt readjusted in bed and warm blankets given. ED provider at the bedside at this time to have discussion with patient and son that is now at bedside.
[2024-09-29 06:48] LABS: Hematocrit 26.5 % (42.0-52.0); Hemoglobin 8.5 g/dL (14.1-18.0); Immature Granulocytes % 0.8 %; Mean Corpuscular HGB Conc 32.1 g/dL (31.8-35.4); Mean Corpuscular Hemoglobin 31.7 pg (27.0-31.2); Mean Corpuscular Volume 98.9 fl (80-94); Nucleated Red Blood Cells % 0 %; Platelet Count 231 K/mm3 (142-424); Red Blood Count 2.68 M/mm3 (4.60-6.20); Red Cell Distribution Width-SD 50.3 fL; White Blood Count 8.6 K/mm3 (4.8-10.8)
[2024-09-29 06:56] LABS: Albumin Level 2.8 g/dl (3.5-5.0); Chloride 95 mmol/L (98-107); Potassium 5.1 mmoL/L (3.5-5.1); Sodium 135 mmol/L (136-145)
--- NOTE | 2024-09-29 06:56 | PC.NURSE ---
Urinal placed at bedside, pt aware of need for urinalysis. pt states that he is unable to void at this time. Son also at bedside.
[2024-09-29 06:59] LABS: Alanine Aminotransferase 16 U/L (12-78); Albumin/Globulin Ratio 0.8 (1.1-1.8); Alkaline Phosphatase 100 U/L (38-126); Anion Gap 11.1 mEq/L (5-15); Aspartate Amino Transferase 21 U/L (17-59); Bilirubin,Total 0.7 mg/dl (0.2-1.3); Blood Urea Nitrogen 77 mg/dl (9-20); Calcium 9.4 mg/dl (8.4-10.2); Carbon Dioxide 34 mmol/L (22.0-30.0); Creatinine Clearance Estimated 17 mL/min (50-200); Estimated Glomerular Filt Rate 12 ml/min (>60); GFR (African American) 15 ML/MIN (>60); Globulin 3.6 g/dL (1.3-3.2); Glucose 237 mg/dl (74-100); Total Protein,Serum 6.4 g/dl (6.3-8.2)
[2024-09-29 07:03] LABS: Creatinine,Serum 4.50 mg/dl (0.66-1.25)
--- NOTE | 2024-09-29 07:04 | PC.NURSE ---
Critical Lab report by Lab: Creatinine 4.5, Physician notified of lab value
--- NOTE | 2024-09-29 07:57 | SW/DCPLANNER ---
I am currently waiting on a call back w/ Loreto at [facility] regarding discharge plans from ED for this patient.
[2024-09-29 08:00] LABS: NT Pro Brain Natriuretic Pep. 4970 pg/mL (0-450)
--- NOTE | 2024-09-29 08:03 | PC.NURSE ---
TRN spoke with lexis lynch who reached out to hospice about pt placement. she is awaiting a call from them to speak about pt.
[2024-09-29 08:10] LABS: Magnesium 2.1 mg/dl (1.6-2.3); Phosphorous 4.7 mg/dl (2.5-4.5)
--- NOTE | 2024-09-29 08:12 | PC.NURSE ---
checked on pt, pt resting. son at bs, son stated he just got off the phone with hospice and they should be here soon
--- NOTE | 2024-09-29 08:41 | SW/DCPLANNER ---
Addendum entered by Jazmyn Ponce 09/29/24 12:56: Per Alex pedersen/ [facility] they can accept this patient. Patient/POA agreeable to [facility] and private pay rate. I have updated Zhanna and MARIELLA w/ Hospice. I have also updated ED staff and other facilities. Patient will discharge from ER to [facility] today w/ Hospice services. Addendum entered by Jazmyn [place] 09/29/24 11:39: Alex pedersen/ [facility] will be at bedside to evaluate patient and speak w/ son soon. Viviana pedersen/ [facility] is reviewing patient information. Addendum entered by Jazmyn Ponce 09/29/24 10:29: MARIELLA (Hospice Nurse) and Zhanna (Transformation Consultant) are at bedside discussing discharge plans w/ patient and son (POA). Patient and son are agreeable to private pay placement at [facility], [facility] or [facility]. I will fax patient information to all three facilities this AM and continue to follow up. Patient is ready for discharge from the ED. Original Note: I attempted to speak w/patient's POA in the ER: not present at this time. Per Loreto w/ Hospice their Seconds Grader and Nurse will be at bedside this AM.
[2024-09-29 09:55] LABS: Microscopic, Urine URINE MICROSCOPIC (MICROSCOPIC)
[2024-09-29 09:57] LABS: Bilirubin,Urine Negative (Negative); Color,Urine YELLOW (Yellow); Glucose,Urine (UA) Negative (Negative); Ketones,Urine Negative (Negative); Leukocyte Esterase,Urine Negative (Negative); PH,Urine 5.5 (5.0-8.5); Protein,Urine Negative (Negative); Specific Gravity, Urine 1.020 (1.005-1.030); Urobilinogen,Urine 0.2 EU/dl (0.2)
--- NOTE | 2024-09-29 10:02 | PC.NURSE ---
hospice ([facility]) at
[2024-09-29 10:09] LABS: Bacteria,Urine Trace /lpf; RBC,Urine Occasional #/hpf (0-3); Squamous Epithelial Cell,Urine Occasional #/hpf (0-5)
--- NOTE | 2024-09-29 11:14 | PC.NURSE ---
Addendum entered by Alvina Girard RN 09/29/24 11:26: lexis lynch at Addendum entered by Alvina Girard RN 09/29/24 11:21: son Ej Aldrich [phone] Original Note: pts son came out asking if pt will get his meds (lasix, breathing tx, and xanax). son appears frustrated and overwhelmed. son said he cant go anywhere because his father will keep asking where he is. took the sons phone number and told him he can go home and get some rest, run errands, etc and staff/care management will call with any updates. son said he might, currently still in the room. pt resting, states he doesnt need a breathing tx at this time and he is fine . cb within reach, vss
--- NOTE | 2024-09-29 11:51 | PC.NURSE ---
employee from [facility] in room evaluating patient for admission at this time.
--- NOTE | 2024-09-29 12:26 | PC.NURSE ---
tried to call josi murillo, unable to take report at this time
--- NOTE | 2024-09-29 13:02 | PC.NURSE ---
faxed patient information to admissions at [facility].
--- NOTE | 2024-09-29 13:21 | PC.NURSE ---
attempted to call report to josi murillo, nurse unable to take report at this time. said she will call back
[2024-09-29] MEDS: FUROSEMIDE 40 MG TABLET PO (13:48)
[2024-09-29] MEDS: IPRATROPIUM/ALBUTEROL 3 ML NEB IH (13:49)
--- NOTE | 2024-09-29 14:14 | PC.NURSE ---
josi murillo will not take report, notified lexis lynch
--- NOTE | 2024-09-29 14:46 | PC.NURSE ---
EMS called they will be here shortly to pick patient up to go to [facility] at this time.
== END 2024-09-29 15:15 | disposition hospice, inpatient (51) ==
PROVIDERS: Emergency Medicine; Emergency Provider Student in an Organized Health Care Education/Training Program; PCP Family Medicine
DX: N19 Unspecified kidney failure (principal); E11.8 Type 2 diabetes mellitus with unspecified complications; I10 Essential (primary) hypertension; I70.1 Atherosclerosis of renal artery
CPT/HCPCS: 80053; 81001; 83735; 83880; 84100; 85025; 99285